=== PATIENT | female | born 1950 ===

== ENCOUNTER 2021-02-02 12:15 | Outpatient (REF) | payer MEDICARE, MEDICAID, SELFPAY ==
--- NOTE | ~2021-02-02 | MM_ITS ---
EXAMINATION: MM DIAGNOSTIC DIGITAL BREAST TOMOSYNTHESIS, BILATERAL US DIAGNOSTIC ULTRASOUND BREAST, LEFT CLINICAL INFORMATION: Painful indurated mass inferior anterior left breast. Patient day 4 on antibiotics. Patient notes clinical improvement in symptoms since starting antibiotics. Family history breast cancer, paternal aunt. The lifetime risk of breast cancer based on the Tyrer-Cuzick Model is 6%. COMPARISON: Mammography: 02/11/2018, 01/17/2017, 10/01/2015 TECHNIQUE: Digital breast tomosynthesis is performed in both the craniocaudal and mediolateral oblique views along with computer-aided detection (CAD). Synthesized 2D images are generated from the tomosynthesis. Additional left MLO and left CC views are provided. Ultrasound left breast is targeted to the retroareolar breast and inferior anterior breast. Grayscale imaging and color Doppler are performed without and with harmonics. FINDINGS: There are scattered areas of fibroglandular density (ACR BI-RADS breast composition Category b). The right breast is unremarkable. There is no developing density, mass, or architectural abnormality. Neither breast shows abnormal calcifications. The axilla are unremarkable. There is chronic bilateral nipple retraction. The left breast has ill-defined increased parenchymal attenuation approximately 1 cm in size central retroareolar region. No skin thickening or coarsening of the Robert's ligaments. Ultrasound left breast demonstrates inferior retroareolar decreased echogenicity residing just beneath the skin measuring 1.6 x 1.3 x 0.7 cm. There is associated mild hyperemia around the area and some internal color flow on color Doppler. No edema tracking in soft tissue planes. No focal duct ectasia. Findings are most likely small abscess and/or granulation tissue from recent infection. Results and management plans are discussed with the patient and also with Dr. Greer at time of patient appointment. Patient confirms decrease in symptoms since starting antibiotics. She is advised to continue with her antibiotics for the full course prescribed and follow-up with Dr. Greer and/or Sinai Nicholson NP on 02/06/2021. Follow-up targeted left breast ultrasound also recommended early next week to reassess findings. MM/MM tomosynthesis diagnostic BI IMPRESSION: 1. Left: Small abscess and/or granulation tissue from recent infection inferior retroareolar left breast 1.6 x 1.3 x 0.7 cm. 2. Right: No mammographic evidence of malignancy. ASSESSMENT: BI-RADS 3: Probably Benign RECOMMENDATION: 1. Patient to continue her course of antibiotics as prescribed and follow-up with Dr. Greer and/or Sinai Nicholson NP on 02/06/2021. 2. Follow up targeted left breast ultrasound in 4-7 days. This patient's information was entered into a reminder system with a target due date for their next mammogram.
--- NOTE | ~2021-02-02 | US_ITS ---
Targeted left breast ultrasound is described in a single combined report along with the diagnostic bilateral digital breast tomosynthesis under accession number [id number].
== END 2021-02-02 12:16 | disposition home or self-care (01) ==
LOC: HO.MAMMO 12:15
PROVIDERS: Visit Provider Nurse Practitioner Family
DX: N63.24 Unspecified lump in the left breast, lower inner quadrant (principal)
CPT/HCPCS: 76641; 77062; 77066

== ENCOUNTER 2021-02-06 13:45 | Outpatient (REF) | payer MEDICARE, MEDICAID, SELFPAY ==
--- NOTE | ~2021-02-06 | US_ITS ---
EXAMINATION: US DIAGNOSTIC ULTRASOUND BREAST, LEFT CLINICAL INFORMATION: Small cysts and/or granulation tissue from recent infection lower retroareolar left breast. Follow-up imaging. Patient seen clinically earlier today by urgent care. Symptoms and clinical findings have improved since prior visit. COMPARISON: Mammography and left breast ultrasound 02/02/2021. TECHNIQUE: Ultrasound left breast is targeted to the lower left retroareolar region. Grayscale imaging and color Doppler are performed without and with harmonics. FINDINGS: The hypoechoic collection or granulation tissue with hyperemia is slightly decreased. Current measurements are 1.3 x 1.0 x 0.6 cm compared with prior measurements 1.6 x 1.3 x 0.7 cm. There is no interval skin thickening or edema tracking in soft tissue planes. No interval new cystic or solid mass or interval focal duct ectasia. Results are discussed with the patient at time of visit. Patient confirms she is feeling clinically improved. She has 2 more antibiotic tablets to finish. She is to follow-up with her primary care, Dr. Jenkins. Results also communicated to Sinai Nicholson NP via secure text. US/US breast LT limited IMPRESSION: Inferior retroareolar findings left breast slightly decreased since prior imaging 02/02/2021. ASSESSMENT: BI-RADS 3: Probably Benign RECOMMENDATION: Patient to complete her prescribed antibiotics and follow up with her PCP as planned. This patient's information was entered into a reminder system with a target due date for their next mammogram.
== END 2021-02-06 13:46 | disposition home or self-care (01) ==
LOC: HO.MAMMO 13:45
PROVIDERS: Visit Provider Nurse Practitioner Family
DX: N61.1 Abscess of the breast and nipple (principal)
CPT/HCPCS: 76642

== ENCOUNTER 2021-03-07 14:44 | Outpatient (REF) | payer MEDICARE, MEDICAID, SELFPAY ==
--- NOTE | ~2021-03-07 | MM_ITS ---
EXAMINATION: BONE DENSITOMETRY CLINICAL INDICATION: Encounter for screening for osteoporosis. COMPARISON: Previous BD dated 11/18/2015 and baseline BD dated 11/18/2007. TECHNIQUE: Using a [employer] DXA System (software version: 13.1) manufactured by [employer], dual-energy x-ray absorptiometry was performed of the lumbar spine and left hip. The images are of good technical quality. Summary results are attached. FINDINGS: AP SPINE L1-L4: Current: BMD 1.261 g/cm2, Z-score 1.3, T-score 0.7, normal, 3.1% decrease from previous, 0.2% decrease from baseline (<5% change is not significant). Prior: BMD 1.301 g/cm2. Baseline: BMD 1.264 g/cm2. LEFT FEMUR, NECK: Current: BMD 0.828 g/cm2, Z-score -0.6, T-score -1.5, osteopenia. Prior: BMD 0.911 g/cm2. Baseline: BMD 0.946 g/cm2. LEFT FEMUR, TOTAL: Current: BMD 1.052 g/cm2, Z-score 1.0, T-score 0.3, normal, 2.3% increase from previous, 7.9% decrease from baseline (<5% change is not significant). Prior: BMD 1.028 g/cm2. Baseline: BMD 1.142 g/cm2. IDENTIFIED RISK FACTORS: Renal, height loss, menopause. HISTORY OF FRACTURE: None listed. MEDICATIONS: Calcium supplements or multivitamin, vitamin D. MM/XR DEXA axial skeleton IMPRESSION: 1. DIAGNOSIS: Osteopenia based on the lowest T-score value of -1.5 in the femoral neck applying World Health Organization criteria. 2. 10-YEAR FRACTURE RISK PREDICTION, FRAX: Major osteoporotic fracture (clinical spine, forearm, hip or shoulder) 4.9%. Hip fracture 0.6%. 3. Treatment Recommendations: NOF guidelines recommend consideration for treatment in postmenopausal women and men age 50 and older presenting with the following: -A hip or vertebral (clinical or morphometric) fracture. -T-score less than or equal to -2.5 at the femoral neck or spine after appropriate evaluation to exclude secondary causes. -Low bone mass at the hip or spine and a 10-year fracture probability by FRAX of greater than or equal to 3% for hip fracture or greater than or equal to 20% for major osteoporotic fracture based on the [place] adapted WHO algorithm. 4. Other Recommendations: All treatment decisions require clinical judgment and consideration of individual patient factors, including patient preferences, comorbidities, previous drug use, risk factors not captured in the FRAX model (e.g. frailty, falls, vitamin D deficiency, increased bone turnover, interval significant decline in bone density) and possible under or overestimation of fracture risk by FRAX. Additional medical evaluation for secondary cause of low bone mineral density may be appropriate. FUTURE SCAN RECOMMENDATION: People with diagnosed cases of osteoporosis or at high risk for fracture should have regular bone mineral density tests. For patients eligible for Medicare, routine testing is allowed once every 2 years. The testing frequency can be increased to one year for patients who have rapidly progressing disease, those who are receiving or discontinuing medical therapy to restore bone mass, or have additional risk factors.
== END 2021-03-07 14:45 | disposition home or self-care (01) ==
LOC: HO.MAMMO 14:44
PROVIDERS: Visit Provider Internal Medicine
DX: Z13.820 Encounter for screening for osteoporosis (principal); M85.80 Other specified disorders of bone density and structure, unspecified site; Z78.0 Asymptomatic menopausal state; Z79.899 Other long term (current) drug therapy
CPT/HCPCS: 77080

== ENCOUNTER → 2021-04-24 14:15 | Outpatient (BNVA) | payer MEDICARE, MEDICAID, SELFPAY | PROVIDERS: PCP Internal Medicine; Visit Provider Nurse Practitioner Family | DX: K59.01 Slow transit constipation (principal); K58.2 Mixed irritable bowel syndrome | CPT/HCPCS: 99202 ==

== ENCOUNTER → 2021-06-14 15:30 | Outpatient (BNVA) | payer MEDICARE, MEDICAID, SELFPAY | PROVIDERS: PCP Internal Medicine; Visit Provider Nurse Practitioner Family | CPT/HCPCS: Q3014 ==

== ENCOUNTER 2021-08-29 11:12 | Day surgery (SDC) | payer MEDICARE, MEDICAID, SELFPAY ==
--- NOTE | 2021-08-28 10:28 | HO.ANESPROP2 ---
Documented by User: Emily Dacosta NP 08/28/21 10:29 HPI - Anesthesia Eval Consult details Narrative: 71yo F for Colonoscopy PMFSH Active Problems Active Problems: All Active Problems (Updated 01/30/21 @ 12:51 by Sinai Nicholson NP) Mastitis (Acute) Breast mass, left (Acute) Vaccination refused by patient (Acute) Dyslipidemia (Acute) Impaired fasting glucose (Acute) Bronchial asthma (Acute) Essential hypertension (Acute) Past Medical History Medical History Bronchial asthma Essential hypertension Impaired fasting glucose Vaccination refused by patient Family History Family History Father Diabetes mellitus Essential hypertension CVA (cerebral vascular accident) Dyslipidemia Mother Dyslipidemia CVA (cerebral vascular accident) Surgical History Surgical History (Updated 06/14/21 @ 15:32 by RYLAN Frank) History of cholecystectomy History of esophagogastroduodenoscopy (EGD) Hx of colonoscopy Social History Social History Alcohol intake: never Patient Tobacco Use Status: Never used Tobacco Use of substances other than those prescribed or required for medical reasons: No Are you DNR?: No Advance Directives: No Advance Directives Information Provided: No Meds Allergies Allergy/AdvReac Type Severity Reaction Status Date / Time shrimp Allergy Mild unknown Verified 06/14/21 15:31 Home Medications Medication Instructions Recorded Confirmed Last Taken Type albuterol sulfate 90 mcg/actuation 2 puff INHALATION Q4-6H PRN 01/16/21 01/16/21 Unknown History aerosol inhaler (ProAir HFA) cholecalciferol (vitamin D3) 50 50 mcg PO DAILY 01/16/21 01/16/21 Unknown History mcg (2,000 unit) capsule duloxetine 20 mg capsule,delayed 20 mg PO BID 01/16/21 01/16/21 Unknown History release (Cymbalta) ibuprofen 400 mg tablet 400 mg PO TID 01/16/21 01/16/21 Unknown History lorazepam 0.5 mg tablet 0.5 mg PO BID PRN 01/16/21 01/16/21 Unknown History quetiapine 25 mg tablet 25 mg PO DAILY 01/16/21 01/16/21 Unknown History amlodipine 2.5 mg tablet 2.5 mg PO DAILY 01/18/21 01/18/21 08/29/21 History bupropion HCl 300 mg 24 hr tablet, 300 mg PO QAM 06/14/21 Unknown History extended release duloxetine 60 mg capsule,delayed 60 mg PO QAM 06/14/21 Unknown History release Exam Exam Date and Time: August 28, 2021 1028 Assessment and Plan Assessment Anesthesia Assessment: Chart Reviewed Documented by User: Jazmyn Spence MD 08/29/21 12:58 PMFSH Past Medical History Medical History Bronchial asthma Essential hypertension Impaired fasting glucose Vaccination refused by patient Functional capacity: independent ambulation Patient : No Family History Family History Father Diabetes mellitus Essential hypertension CVA (cerebral vascular accident) Dyslipidemia Mother Dyslipidemia CVA (cerebral vascular accident) Family history of problems with anesthesia: No Surgical History Surgical History (Updated 06/14/21 @ 15:32 by RYLAN Frank) History of cholecystectomy History of esophagogastroduodenoscopy (EGD) Hx of colonoscopy History of Problems with Anesthesia: No Social History Social History Alcohol intake: never Patient Tobacco Use Status: Never used Tobacco Use of substances other than those prescribed or required for medical reasons: No Are you DNR?: No Advance Directives: No Advance Directives Information Provided: No Meds Allergies Allergy/AdvReac Type Severity Reaction Status Date / Time shrimp Allergy Mild unknown Verified 06/14/21 15:31 Home Medications Medication Instructions Recorded Confirmed Last Taken Type albuterol sulfate 90 mcg/actuation 2 puff INHALATION Q4-6H PRN 01/16/21 01/16/21 Unknown History aerosol inhaler (ProAir HFA) cholecalciferol (vitamin D3) 50 50 mcg PO DAILY 01/16/21 01/16/21 Unknown History mcg (2,000 unit) capsule duloxetine 20 mg capsule,delayed 20 mg PO BID 01/16/21 01/16/21 Unknown History release (Cymbalta) ibuprofen 400 mg tablet 400 mg PO TID 01/16/21 01/16/21 Unknown History lorazepam 0.5 mg tablet 0.5 mg PO BID PRN 01/16/21 01/16/21 Unknown History quetiapine 25 mg tablet 25 mg PO DAILY 01/16/21 01/16/21 Unknown History amlodipine 2.5 mg tablet 2.5 mg PO DAILY 01/18/21 01/18/21 08/29/21 History bupropion HCl 300 mg 24 hr tablet, 300 mg PO QAM 06/14/21 Unknown History extended release duloxetine 60 mg capsule,delayed 60 mg PO QAM 06/14/21 Unknown History release Exam Airway Mallampati Class: III TM Dist: >3cm Neck ROM: Full Heart: RRR Lungs: CTA Assessment and Plan Final Anesthetic Review Family History of Problems with Anesthesia: No History of Problems with Anesthesia: No ASA Class: III Final Preanesthetic Review: No Changes in Pt Med Stat, Consent Obtained/Reviewed and Anes Risks/Benef Reviewed Patient Risk: Intermediate Procedure Risk: Low Anesthetic Plan Anesthetic Plan: MAC: Disposition: Standard PACU
[2021-08-29 11:46] VITALS: BP 192/93; PULSE 77; RESP 20; TEMP 36.3; O2SAT 97; BMI 39.1
[2021-08-29] MEDS: Lactated Ringers 1,000 ML 100 ML IVCONT (12:07)
--- NOTE | 2021-08-29 12:30 | MHC.SHP ---
Pre-Procedural Eval Section A Date of Service: 08/29/21 The patient is an INPATIENT: No The History & Physical has been completed within 30 days and I have reviewed it.: No Section B Chief Complaint: Irritable bowel syndrome without diarrhea Details of Present Illness: Colon cancer screening, constipation Relevant Family History (Specify if Yes): No Relevant Social History: None Present Medications: see Short Stay Collaborative assessment Medical History: Significant History (Bronchial asthma Essential hypertension Impaired fasting glucose Vaccination refused by patient) History of Previous Operations: Relevant previous surgery/procedure and date(s) (History of cholecystectomy History of esophagogastroduodenoscopy (EGD) Hx of colonoscopy) Allergies: Allergies Allergy/AdvReac Type Severity Reaction Status Date / Time shrimp Allergy Mild unknown Verified 06/14/21 15:31 Review of Systems Sugical H&P ROS: Negative: Constitution, Cardiovascular and Respiratory and Yes, Specify: Gastrointestinal (constipation) Exam Surgical H&P Exam: Normal: Heart, Normal: Lungs, Normal: Extremities and Normal: Abdomen Plan Diagnosis/Plan: Unchanged I have reviewed the history and physical and performed a pertinent physical examination on my patient. No changes have occurred unless specified.
--- NOTE | 2021-08-29 12:31 | P.OP_ITS ---
Operative Note Operative Note Date of Service: 08/29/21 Narrative: Pre-op diagnosis:?colon cancer screening, constipation, IBS Post-op diagnosis:?other (Diverticulosis, hemorrhoids) Procedure:? COLONOSCOPY TILL CECUM Consent: Indications for the procedure and potential complications of bleeding, perforation, reaction to medications and missed diagnosis were discussed with the patient and informed consent was obtained. Instrument: Olympus PCF H 190 L variable stiffness pediatric colonoscope Monitoring: Vital signs and clinical assessment, intermittent blood pressure monitoring, continuous EKG monitoring, Pulse oximetry and Carbon Dioxide monitoring were done throughout the procedure. Colon withdrawl time was 15 minutes. Procedure: The patient was placed in the left lateral decubitis position and pre-procedure medications were administered. After a digital rectal examination of the ano-rectum, the video colonoscope was inserted into the rectum and advanced through the colon to the cecum. The colonoscope was slowly withdrawn in a retrograde panoramic fashion and the colon mucosa was carefully examined including a retroflexed view of the rectum. Findings and interventions are described below. Procedure Difficulty:? Colon was long and tortuous and there was some loop formation.? There was narrowing due to severe diverticulosis at 30 cm which was navigated with some difficulty Findings: Terminal Ileum: Not evaluated Cecum:? Normal Ascending Colon:? Scattered diverticulosis Transverse Colon:? Scattered diverticulosis Descending Colon:? Moderate diverticulosis Sigmoid Colon:? Severe diverticulosis with narrowing and tortuosity. Rectum:? Normal Ano-rectum:? Moderate internal hemorrhoids Colon preparation:? Good after some irrigation Impression and Post Procedure Diagnosis: Colonoscopy Findings: No polyps were detected Moderate to severe diverticulosis seen in the entire colon Moderate hemorrhoids on retroflexed exam. Plan: Patient has an appointment on 09/12/21 in the [facility] with Cecilia Yang FNP-BC. Repeat Colonoscopy in 10 yrs. Above findings were reviewed with the patient and diverticulosis handouts was given in the discharge area Surgeon:?Neftali Mckeon MD Anesthesia:?MAC (Dr Joseph) Was an Tufting Machine Operator Single Needle used for this Procedure?:?No Tufting Machine Operator Single Needle:?Marina Xiao Estimated blood loss (mL):?0 Pathology:?none sent Condition:?stable Disposition:?PACU
[2021-08-29 13:58] VITALS: BP 128/74; PULSE 80; RESP 16; TEMP 36.6; O2SAT 95
[2021-08-29 14:13] VITALS: BP 145/78; PULSE 70; RESP 16; TEMP 36.6; O2SAT 96
--- NOTE | 2021-08-29 14:16 | HO.POSTANES ---
Post Anesthesia Evaluation Post Anesthesia Evaluation Vital Signs: Vital Signs Temp Pulse Resp BP Pulse Ox 08/29/21 14:13 97.9 F 70 16 145/78 H 96 08/29/21 13:58 97.9 F 80 16 128/74 95 08/29/21 11:46 97.4 F 77 20 192/93 H 97 Anesthesia: Monitored Mental Status: Awake Pain Control: Satisfactory Nausea/Vomiting: None Hydration: Adequate Anesthesia-Related Issues: No Anes. Related Issues
== END 2021-08-29 14:36 | disposition home or self-care (01) ==
PROVIDERS: PCP Internal Medicine; Visit Provider Internal Medicine Gastroenterology
PROC: 0DJD8ZZ Inspection of Lower Intestinal Tract, Via Natural or Artificial Opening Endoscopic (ICD-10-PCS; CPT 45378; principal; 2021-08-29 12:30)
DX: Z12.11 Encounter for screening for malignant neoplasm of colon (principal); K58.1 Irritable bowel syndrome with constipation; K57.30 Diverticulosis of large intestine without perforation or abscess without bleeding; K64.8 Other hemorrhoids; K21.9 Gastro-esophageal reflux disease without esophagitis; I10 Essential (primary) hypertension; E78.5 Hyperlipidemia, unspecified; R73.01 Impaired fasting glucose; J45.909 Unspecified asthma, uncomplicated; Z79.51 Long term (current) use of inhaled steroids; Z79.899 Other long term (current) drug therapy; Z90.49 Acquired absence of other specified parts of digestive tract
CPT/HCPCS: G0121

== ENCOUNTER 2022-03-29 13:51 | Outpatient (REF) | payer MEDICARE, MEDICAID, SELFPAY ==
[2022-03-29 16:39] LABS: MANUAL DIFF FLAG NO
[2022-03-29 16:43] LABS: Basophils Absolute Auto 0.1 X10*3/uL (0.0-0.2); Basophils Percent Auto 0.5 % (0-2); Eosinophils Absolute Auto 0.3 X10*3/uL (0.0-0.4); Eosinophils Percent Auto 2.3 % (0-4); Hemoglobin 14.4 g/dl (12.0-16.0); Imm Gran Abs Auto 0.07 X10*3/uL (0.00-0.03); Imm Gran Pct Auto 0.7 % (0.0-0.4); Lymphocytes Absolute Auto 2.7 X10*3/uL (1.2-4.9); Lymphocytes Percent Auto 24.6 % (20-40); Mean Corpuscular HGB Conc 32.7 g/dl (31.0-35.0); Mean Corpuscular Hemoglobin 28.1 pg (27.0-33.0); Mean Corpuscular Volume 85.9 fL (80.0-98.0); Mean Platelet Volume 11.6 fL (9.4-12.3); Monocytes Absolute Auto 1.1 X10*3/uL (0.1-1.2); Monocytes Percent Auto 10.6 % (2-11); Neutrophils Absolute Auto 6.6 x10*3/uL (2.0-8.3); Neutrophils Percent Auto 61.3 % (45-73); Platelet Count 317 X10*3/uL (160-400); Red Blood Count 5.12 X10*6/uL (4.20-5.50); Red Cell Distribution Width 13.5 % (11.0-16.0); White Blood Count 10.8 X10*3/uL (4.8-10.8)
[2022-03-29 16:57] LABS: Alanine Aminotransferase 22 U/L (0-31); Anion Gap 13 (12-20); Aspartate Amino Transferase 21 U/L (5-31); Blood Urea Nitrogen 13 mg/dL (9-16); Calcium 9.3 mg/dL (8.4-10.2); Carbon Dioxide 24 mmol/L (22-29); Chloride 108 mmol/L (96-108); Cholesterol 137 mg/dL; Estimated Glomerular Filt Rate > 60; Glucose Fasting 121 mg/dL (60-99); HDL Cholesterol 43 mg/dL; LDL Cholesterol Calculated 73 mg/dl; Potassium 4.6 mmol/L (3.3-5.1); Sodium 140 mmol/L (135-145); Triglycerides 107 mg/dL
[2022-03-29 17:20] LABS: Vitamin D 25-OH Total 42.3 ng/mL (>30)
== END 2022-03-29 13:52 | disposition home or self-care (01) ==
LOC: HO.HMGCLDS 13:51
PROVIDERS: Visit Provider Internal Medicine
DX: I10 Essential (primary) hypertension (principal); E78.5 Hyperlipidemia, unspecified; R73.01 Impaired fasting glucose; N95.9 Unspecified menopausal and perimenopausal disorder
CPT/HCPCS: 36415; 80048; 80061; 82306; 84450; 84460; 85025

== ENCOUNTER 2022-05-01 12:25 | Outpatient (REF) | payer MEDICARE, MEDICAID, SELFPAY ==
--- NOTE | ~2022-05-01 | XR_ITS ---
EXAMINATION: XR ANKLE, RIGHT CLINICAL INFORMATION: S93.401A - Sprain of unspecified ligament of right ankle, initial encounter COMPARISON: None TECHNIQUE: AP, lateral, and mortise views of the right ankle. FINDINGS: The malleoli are intact and the ankle mortise is symmetric. No ankle joint narrowing. No visible capsular effusion. Talar dome shows no osteochondral lesion. The retrocalcaneal recess is preserved. The subtalar joint appears normal. There is small plantar and tiny posterior calcaneal spurs. XR/XR ankle RT min 3V IMPRESSION: -No fracture or dislocation. -Small plantar and posterior calcaneal spurs.
== END 2022-05-01 12:26 | disposition home or self-care (01) ==
LOC: HO.HMGCX 12:25
PROVIDERS: PCP Internal Medicine; Visit Provider Internal Medicine
DX: S93.401A Sprain of unspecified ligament of right ankle, initial encounter (principal); X58.XXXA Exposure to other specified factors, initial encounter; Y93.9 Activity, unspecified; Y92.9 Unspecified place or not applicable; Y99.8 Other external cause status
CPT/HCPCS: 73610

== ENCOUNTER 2022-10-11 14:17 | Outpatient (REF) | payer MEDICARE, MEDICAID, SELFPAY ==
--- NOTE | ~2022-10-11 | MM_ITS ---
EXAMINATION: MM DIAGNOSTIC DIGITAL BREAST TOMOSYNTHESIS, BILATERAL TARGETED LEFT BREAST ULTRASOUND CLINICAL INFORMATION: Left breast lump retroareolar region. The lifetime risk of breast cancer based on the Tyrer-Cuzick Model is 7.0%. COMPARISON: Mammography: 02/06/2021 and studies dating back to 11/15/2011. TECHNIQUE: Digital breast tomosynthesis is performed in both the craniocaudal and mediolateral oblique views along with computer-aided detection (CAD). Synthesized 2D images are generated from the tomosynthesis. Targeted left breast ultrasound. FINDINGS: There are scattered areas of fibroglandular density (ACR BI-RADS breast composition Category b). There is a stable parenchymal pattern of the right breast with no new abnormal dominant mass or suspicious grouping of microcalcifications identified. Within the left breast there appears to be some nipple inversion present. In the retroareolar region there is an ill-defined density measuring approximately 1.2 x 0.9 cm in size. Targeted left breast ultrasound to the retroareolar region demonstrated a 1.3 x 0.9 x 0.9 cm heterogeneous and hypoechoic lesion with some distal sound enhancement. There is internal vascularity present. The margins are somewhat ill-defined in regions. Ultrasound-guided core biopsy is recommended. Results are discussed with the patient at time of visit. MM/MM tomosynthesis diagnostic BI IMPRESSION: Left breast retroareolar lesion for which ultrasound-guided core biopsy is recommended. ASSESSMENT: BI-RADS 4: Suspicious RECOMMENDATION: Ultrasound-guided core biopsy. The above recommendation was called to Christina at the referring provider's office.
== END 2022-10-11 14:18 | disposition home or self-care (01) ==
LOC: HO.MAMMO 14:17
PROVIDERS: Visit Provider Internal Medicine
DX: N63.25 Unspecified lump in the left breast, overlapping quadrants (principal)
CPT/HCPCS: 76642; 77062; 77066

== ENCOUNTER 2022-10-16 09:46 | Outpatient (REF) | payer OTHER, SELFPAY ==
--- NOTE | ~2022-10-16 | US_ITS ---
EXAMINATION: ULTRASOUND GUIDED CORE BIOPSY BREAST, LEFT POST PROCEDURE DIGITAL BREAST TOMOSYNTHESIS, LEFT CLINICAL INFORMATION: Hypoechoic nodule with internal color subareolar left breast for tissue sampling. COMPARISON: Mammography 10/11/2022, 02/02/2021, 02/11/2018; ultrasound left breast 10/11/2022, 02/06/2021, 02/02/2021. FINDINGS: Proper informed consent is obtained from the patient after discussion of the procedure, potential risks and complications, and alternatives. Patient was given an opportunity for questions. The patient appeared to understand. The patient consented to the procedure and signed the consent form. Hospital provided clinical account liaison assisted for the consent and throughout the procedure. GUIDANCE: Ultrasound-guided; aseptic technique. LESION: Subareolar hypoechoic nodule with internal color flow approximately 1.2 cm. Differential considerations include papilloma, chronic postinflammatory granulation tissue, other. APPROACH: Medial lateral. ANESTHESIA: 20 mL carbonated 1% lidocaine. DERMATOTOMY: Single skin jian dermatotomy performed. NEEDLE: 14-gauge Achieve core biopsy device with 13.5-gauge co-axial guide needle. CORES: 4. CLIP: HydroMARK; shape: open coil. POST PROCEDURE DIGITAL BREAST TOMOSYNTHESIS, LEFT: The post biopsy mammogram is performed in separate room using separate digital breast tomography equipment from the biopsy procedure. CC and ML views are obtained. There are scattered areas of fibroglandular density (breast composition category: b). The clip marker is in expected position. No gross hematoma. The patient tolerated the procedure well. No immediate complications. Home instructions reviewed with the patient. Final pathology results are pending. US/US breast ndl core biopsy LT IMPRESSION: 1. Status post ultrasound-guided core biopsy left breast. 2. Clip placed: HydroMARK; shape: open coil. 3. Pathology pending. An addendum report will be issued.
[2022-10-16] MEDS: Sodium Bicarbonate 8.4% 50 MEQ/50 ML VIAL SUBCUT (11:23)
[2022-10-16] MEDS: Lidocaine HCl 1 % 20 ML VIAL SUBCUT (11:24)
== END 2022-10-16 09:47 | disposition home or self-care (01) ==
LOC: HO.MAMMO 09:46
PROVIDERS: PCP Internal Medicine; Visit Provider Surgery
DX: N63.42 Unspecified lump in left breast, subareolar (principal); R93.5 Abnormal findings on diagnostic imaging of other abdominal regions, including retroperitoneum
CPT/HCPCS: 19083; 77061; 77065; 88305; 88341; 88342; 88360; 99202; A4648

== ENCOUNTER → 2022-10-23 13:29 | Outpatient (BNVA) | payer OTHER, SELFPAY | PROVIDERS: PCP Internal Medicine; Referring Provider Internal Medicine; Visit Provider Surgery | DX: C50.912 Malignant neoplasm of unspecified site of left female breast (principal); Z17.0 Estrogen receptor positive status [ER+]; R93.5 Abnormal findings on diagnostic imaging of other abdominal regions, including retroperitoneum | CPT/HCPCS: 99212 ==

== ENCOUNTER 2022-11-01 09:48 | Outpatient (REF) | payer OTHER, SELFPAY ==
--- NOTE | ~2022-11-01 | MM_ITS ---
EXAMINATION: MM DIAGNOSTIC DIGITAL MAMMOGRAPHY, LEFT CLINICAL INFORMATION: RFID placement. COMPARISON: Mammography: Ultrasound of same day as well as mammography and ultrasound of 10/16/2022 and 03/11/2022. TECHNIQUE: Digital mammography is performed in craniocaudal and mediolateral views along with tomosynthesis. FINDINGS: There are scattered areas of fibroglandular density (ACR BI-RADS breast composition Category b). The RFID clip is seen to lie approximately 6 mm anterior to and 6 mm superior to the marking clip from previous biopsy in the anterior left breast. MM/MM diagnostic mammo unilat LT IMPRESSION: RFID marker in place.
--- NOTE | ~2022-11-01 | US_ITS ---
EXAMINATION: MM MAMMOGRAM GUIDED RFID LOCALIZATION BREAST, LEFT CLINICAL INFORMATION: Left breast retroareolar carcinoma in situ. COMPARISON: October 16, 2022 and October 11, 2022 TECHNIQUE NEEDLE LOC: Proper informed consent is obtained from the patient after discussion of the procedure, potential risks and complications, and alternatives including declining the procedure today. Patient was given an opportunity for questions. The patient appeared to understand. The patient consented to the procedure and signed the consent form. GUIDANCE: Digital mammography. APPROACH: Lateral Medial. TARGET: Hypoechoic lesion and clip. ANESTHESIA: carbonated lidocaine 1%: 6 mL. LOCALIZATION SYSTEM: [email or web address] LOCallizer Wire-Free Guidance System with 12g needle applicator. RADIOFREQUENCY TAG: ID # [id number] DERMATOTOMY: Single skin-jian dermatotomy performed. RF Tag ID confirmed with LOCalizer Guidance System prior to placement. The skin is prepped and local anesthesia administered. The needle is positioned and RFID tag deployed. The needle was turned so it was facing the clip and was approximately 1 mm from the clip at time of deployment. Final images demonstrate the LOCalizer RF tag to reside 6 mm anterior and 6 mm superior to the marking clip. The patient tolerated the procedure well and had no immediate complications. Dressing placed and home instructions reviewed. US/US breast needle loc LT IMPRESSION: -Status post left breast RFID localization.
[2022-11-01] MEDS: Lidocaine HCl 1 % 20 ML VIAL 9 ML SUBCUT (10:55)
== END 2022-11-01 09:49 | disposition home or self-care (01) ==
LOC: HO.MAMMO 09:48
PROVIDERS: PCP Internal Medicine; Visit Provider Surgery
DX: C50.812 Malignant neoplasm of overlapping sites of left female breast (principal); Z17.0 Estrogen receptor positive status [ER+]
CPT/HCPCS: 19285; 77062; 77065; C1819

== ENCOUNTER 2022-11-05 11:19 | Day surgery (SDC) | payer OTHER, SELFPAY ==
[2022-10-31 15:33] VITALS: BMI 38.5
[2022-11-05] VITALS (14 sets, daily range): BP systolic 116–166; BP diastolic 66–88; PULSE 65–78; RESP 12–20; TEMP 36.1–36.7; O2SAT 94–98
--- NOTE | ~2022-11-05 | MM_ITS ---
EXAMINATION: MM SPECIMEN X-RAY BREAST, LEFT BREAST CLINICAL INDICATION: Carcinoma in situ. Open surgical biopsy. COMPARISON: Mammography 10/11/2022, 10/16/2022, 11/01/2022; left breast ultrasound-guided core biopsy 10/16/2022, left breast ultrasound-guided localization with radiofrequency seed 11/01/2022. TECHNIQUE: Single radiograph of the excised breast tissue is performed using digital mammography. FINDINGS: The specimen shows radiofrequency localizer seed in the specimen. The open coil biopsy clip marker is also present, close to the radiofrequency seed. Results were called to Dr. Quinn Matias in the operating room at the time of imaging.
--- NOTE | 2022-11-05 12:04 | HO.ANESPROP2 ---
[facility] Active Problems Active Problems: All Active Problems (Updated 10/31/22 @ 15:32 by Leda Vanegas RN) Dyslipidemia (Acute) Sprain of right ankle (Acute) Cough (Acute) Abnormal US (ultrasound) of abdomen (Acute) Carcinoma of left breast in female, estrogen receptor positive (Acute) Breast mass, left (Acute) Impaired fasting glucose (Acute) Bronchial asthma (Acute) Essential hypertension (Acute) Past Medical History Medical History (Updated 10/31/22 @ 15:32 by Leda Vanegas RN) Breast mass, left Bronchial asthma Elevated cholesterol Essential hypertension GERD (gastroesophageal reflux disease) Impaired fasting glucose Vaccination refused by patient Family History Family History Father Diabetes mellitus Essential hypertension CVA (cerebral vascular accident) Dyslipidemia Mother Dyslipidemia CVA (cerebral vascular accident) Mother Mental health disorder Brother Mental health disorder Paternal Aunt Breast cancer Ovarian cancer Maternal Aunt Breast cancer Ovarian cancer Family history of problems with anesthesia: No Surgical History Surgical History (Updated 10/31/22 @ 15:15 by Leda Vanegas RN) History of cholecystectomy History of esophagogastroduodenoscopy (EGD) Hx of colonoscopy History of Problems with Anesthesia: No Social History Social History Housing: Apartment Are you a primary career development counselor to a significant other at home: No Do you presently have visiting nurse or other home services: No Alcohol intake: never Patient Tobacco Use Status: Never used Tobacco e-Cigarette/Vaping Use: Never Used Use of substances other than those prescribed or required for medical reasons: No Have you been hit, kicked, punched, or otherwise hurt by someone within the past year? If so, by whom?: No Are you DNR?: No Advance Directives: No (daughter is primary contact-unsure if has official HCP form) Advance Directives Information Provided: Yes (brochure mailed) Advance Directives on File: No Recently lost weight without trying: No Eating poorly because of decreased appetite: No Nutrition Risks: No Nutritional Risk Poor oral hygiene: No Current occupational status: disabled Cognitive needs: No Hearing needs: Yes Vision needs: Yes Meds Allergies Allergy/AdvReac Type Severity Reaction Status Date / Time shrimp Allergy Mild unknown Verified 10/23/22 13:55 Active Medications: Current Medications Cefazolin Sodium/Dextrose (Ancef) 2 gm in 50 mls @ 100 mls/hr IV PREOP ONE Stop: 11/05/22 12:10 Lactated Ringer's (Lr) 1,000 mls @ 100 mls/hr IVCONT .Q10H ENRIQUE Home Medications Medication Instructions Recorded Confirmed Last Taken Type albuterol sulfate 90 mcg/actuation 2 puff inhalation Q4-6H PRN 01/16/21 10/31/22 Unknown History aerosol inhaler (ProAir HFA) Wheezing cholecalciferol (vitamin D3) 50 50 mcg PO DAILY 01/16/21 10/31/22 Unknown History mcg (2,000 unit) capsule duloxetine 20 mg capsule,delayed 20 mg PO BID 01/16/21 10/31/22 Unknown History release (Cymbalta) ibuprofen 400 mg tablet 400 mg PO TID 01/16/21 10/31/22 Unknown History lorazepam 0.5 mg tablet 0.5 mg PO BID PRN Anxiety 01/16/21 10/31/22 Unknown History quetiapine 25 mg tablet 25 mg PO DAILY 01/16/21 10/31/22 Unknown History amlodipine 2.5 mg tablet 2.5 mg PO DAILY 01/18/21 10/31/22 08/29/21 History bupropion HCl 300 mg 24 hr tablet, 300 mg PO QAM 06/14/21 10/31/22 Unknown History extended release duloxetine 60 mg capsule,delayed 60 mg PO QAM 06/14/21 10/31/22 Unknown History release Exam Exam Date and Time: November 05, 2022 120 Height,Weight and Vital Signs: Height 5 ft 2 in Weight 95.708 kg Last Vital Signs Temp 98.0 F 11/05/22 11:51 Pulse 68 11/05/22 11:51 Resp 20 11/05/22 11:51 BP 166/88 H 11/05/22 11:51 Pulse Ox 97 11/05/22 11:51 O2 Del Method 11/05/22 11:51 Airway Mallampati Class: II (Missing multiple teeth) TM Dist: >3cm Neck ROM: Full Heart: rrr Lungs: cta bl Assessment and Plan Assessment Anesthesia Assessment: Anesthesia Plan Discussed and Chart Reviewed Final Anesthetic Review Family History of Problems with Anesthesia: No History of Problems with Anesthesia: No NPO: Yes ASA Class: III Final Preanesthetic Review: No Changes in Pt Med Stat, Meds/Allgs Chart Reviewed and Consent Obtained/Reviewed Patient Risk: Intermediate Procedure Risk: Intermediate Anesthetic Plan Anesthetic Plan: GA Disposition: Standard PACU
[2022-11-05] MEDS: Lactated Ringers 1,000 ML 100 ML IVCONT (12:06)
[2022-11-05] MEDS: oxyCODONE HCl Immed Release 5 MG TABLET PO (14:30)
[2022-11-05] MEDS: fentaNYL citrate/PF 100 MCG/2 ML VIAL 50 MCG IVPUSH ×3 (14:30→14:55)
[2022-11-05] MEDS: Acetaminophen 1,000 MG/100 ML PIGGYBACK 400 MG IV (15:42)
--- NOTE | 2022-11-06 07:36 | W.PM.OPN ---
Operative Note Operative Note Date of Service: 11/05/22 Narrative: Preoperative diagnosis: Carcinoma in situ left breast, at least Postoperative diagnosis: Same Procedure: Left breast lumpectomy with LOCalizer, left axillary sentinel node biopsy Surgeon: Quinn Matias MD Damage Inside Adjuster: Corrina Ann PA-C Anesthesia: General LMA Indications for procedure: 72-year-old female patient presenting with a density in the left breast noted on mammogram and confirmed on ultrasound. Subsequent ultrasound guided core biopsy revealed left breast carcinoma in-situ, at least. She presents today for lumpectomy with LOCalizer followed by sentinel node biopsy using blue dye. Operative findings: Specimen x-ray confirms LOCalizer and marking clip within the specimen. Blue dyed not identified within axilla however several palpable, enlarged nodes were identified in the axilla and excised. Specimen: 1. lumpectomy left breast, 2. Axillary node 1., 3. Axillary node 2. Estimated blood loss: 5 mL Complications: None Procedure details: Patient was brought to the OR placed in a supine position. After administering general anesthesia patient's left breast was prepped with ChloraPrep and draped in a sterile fashion. A surgical time-out was called the consent confirmed. Patient received preoperative antibiotics and Venodyne boots were in place. LOCalizer marker was previously placed as an outpatient in the [facility]ology[facility]. Prior to the start of the procedure, periareolar methylene blue was injected in the dermis circumferentially her total of 8 mL. The patient was scanned with the LOCalizer probe in the area of activity identified and marked with a skin scribe. An area at the nipple-areolar complex was identified as the closest to the lesion. Local anesthesia consisting of 0.5% Sensorcaine with epinephrine was infiltrated from between the 4 and 02:00 o'clock location at the upper portion of the nipple-areolar complex. Curvilinear incision was then made with a scalpel carried out through subcutaneous tissue. Superior inferior skin flaps were then created. Using the LOCalizer as a guide core of tissue surrounding the area of are effective it he was excised extending below the nipple into the upper and lower inner quadrants. A palpable nodule was noted just below the nipple in shaved off the nipple skin. Lesion was completely excised and marked with a long suture on the lateral margin, short suture on the superior margin, looped suture on the posterior margin and a single long suture on the region just below the nipple. Specimen was sent for radiology which confirmed the marking clip within the specimen. Attention was then directed to the left axilla. Local anesthesia was then infiltrated in the skin at the lower portion of the hairline. Curvilinear incision was then made in the lower axilla. Dissection was continued down through subcutaneous tissue and up to the clavipectoral fascia. This was then incised with electrocautery. The axillary contents were then explored. No blue dye could be identified within the axilla. The axilla was then palpated carefully. Several level 1 enlarged lymph nodes were identified. These were grasped with the Allis clamp and excised using electrocautery. These were labeled as axillary lymph nodes and sent to pathology further examination. No further palpable lymph nodes were identified and no blue dye could be identified within the axillary compartment. Axillary wounds were then irrigated with saline solution and suctioned dry. The clavipectoral fascia was then closed using interrupted 3-0 Polysorb sutures. Subcutaneous tissue and dermis were then reapproximated using interrupted 3-0 Polysorb sutures. Skin was closed using a running subcuticular 4-0 Polysorb suture. In a similar fashion the breast tissue was irrigated with saline solution and suctioned dry. Deep breast tissue was reapproximated using interrupted 3-0 Polysorb sutures. Dermis was reapproximated using interrupted 3-0 Polysorb sutures. Skin was then closed using a running subcuticular 4-0 Polysorb suture. Steri-Strips, 2 x 2 gauze and Tegaderm were then applied to both incisions. The patient tolerated the procedure well. Sponge, instrument, needle counts reported as correct. Patient was transferred to PACU in stable condition. Breast Albert Lea Node Biopsy Substrate(s) used for sentinel node biopsy in the non-neoadjuvant setting: Dye Substrate(s) used for sentinel node biopsy in the neoadjuvant setting: N/A All colored nodes or non-colored nodes present at the end of a dye filled lymphatic channel were removed, if dye was used as the substrate for localization: N/A (no blue dye identified.) All significantly radioactive nodes were removed, if radionuclide was used as the substrate for localization: N/A All palpably suspicious nodes were removed, if present: Yes If clips were placed in pathology-involved nodes, those nodes were identified and removed: N/A General Surg. - Synoptic Notes Breast Albert Lea Node Biopsy Substrate(s) used for sentinel node biopsy in the non-neoadjuvant setting: Dye Substrate(s) used for sentinel node biopsy in the neoadjuvant setting: N/A All colored nodes or non-colored nodes present at the end of a dye filled lymphatic channel were removed, if dye was used as the substrate for localization: N/A (no blue dye identified.) All significantly radioactive nodes were removed, if radionuclide was used as the substrate for localization: N/A All palpably suspicious nodes were removed, if present: Yes If clips were placed in pathology-involved nodes, those nodes were identified and removed: N/A
== END 2022-11-05 16:15 | disposition home or self-care (01) ==
PROVIDERS: PCP Internal Medicine; Visit Provider Surgery
PROC: (CPT 19301; principal; 2022-11-05 13:50)
PROC: (CPT 19301; 2022-11-05 13:50)
DX: C50.912 Malignant neoplasm of unspecified site of left female breast (principal); Z17.0 Estrogen receptor positive status [ER+]; I10 Essential (primary) hypertension; J45.909 Unspecified asthma, uncomplicated; R73.01 Impaired fasting glucose; Z79.51 Long term (current) use of inhaled steroids; Z79.899 Other long term (current) drug therapy; Z79.1 Long term (current) use of non-steroidal anti-inflammatories (NSAID); Z90.49 Acquired absence of other specified parts of digestive tract
CPT/HCPCS: 19301; 38525; 88305; 88307; 88329; 88341; 88342; J0131; J0690; J1100; J2250; J2405; J3010; Q9968

== ENCOUNTER → 2022-11-13 13:58 | Outpatient (BNVA) | payer OTHER, SELFPAY | PROVIDERS: PCP Internal Medicine; Visit Provider Surgery | DX: Z13.89 Encounter for screening for other disorder (principal) ==

== ENCOUNTER 2022-11-15 10:43 | Outpatient (REF) | payer OTHER, SELFPAY ==
[2022-11-15 13:59] LABS: MANUAL DIFF FLAG NO
[2022-11-15 14:25] LABS: Basophils Absolute Auto 0.1 X10*3/uL (0.0-0.2); Basophils Percent Auto 0.8 % (0-2); Eosinophils Absolute Auto 0.2 X10*3/uL (0.0-0.4); Eosinophils Percent Auto 2.8 % (0-4); Hematocrit 42.9 % (37.0-47.0); Hemoglobin 14.1 g/dl (12.0-16.0); Imm Gran Abs Auto 0.04 X10*3/uL (0.00-0.03); Imm Gran Pct Auto 0.5 % (0.0-0.4); Lymphocytes Absolute Auto 2.4 X10*3/uL (1.2-4.9); Mean Corpuscular HGB Conc 32.9 g/dl (31.0-35.0); Mean Corpuscular Hemoglobin 28.3 pg (27.0-33.0); Mean Platelet Volume 12.1 fL (9.4-12.3); Monocytes Absolute Auto 0.8 X10*3/uL (0.1-1.2); Monocytes Percent Auto 10.4 % (2-11); Neutrophils Absolute Auto 4.2 x10*3/uL (2.0-8.3); Neutrophils Percent Auto 54.5 % (45-73); Platelet Count 264 X10*3/uL (160-400); Red Blood Count 4.99 X10*6/uL (4.20-5.50); Red Cell Distribution Width 13.7 % (11.0-16.0); White Blood Count 7.6 X10*3/uL (4.8-10.8)
[2022-11-15 14:55] LABS: Alanine Aminotransferase 26 U/L (0-31); Anion Gap 13 (12-20); Aspartate Amino Transferase 25 U/L (5-31); Blood Urea Nitrogen 13 mg/dL (9-16); Calcium 9.3 mg/dL (8.4-10.2); Carbon Dioxide 25 mmol/L (22-29); Chloride 107 mmol/L (96-108); Cholesterol 147 mg/dL; Estimated Glomerular Filt Rate > 60; Glucose Fasting 149 mg/dL (60-99); HDL Cholesterol 41 mg/dL; LDL Cholesterol Calculated 85 mg/dl; Potassium 4.2 mmol/L (3.3-5.1); Sodium 141 mmol/L (135-145); Triglycerides 106 mg/dL
[2022-11-15 15:09] LABS: Vitamin D 25-OH Total 34.3 ng/mL (>30)
== END 2022-11-15 10:44 | disposition home or self-care (01) ==
LOC: HO.HMGCLDS 10:43
PROVIDERS: PCP Internal Medicine; Visit Provider Internal Medicine
DX: R73.01 Impaired fasting glucose (principal); E78.5 Hyperlipidemia, unspecified; I10 Essential (primary) hypertension; M85.852 Other specified disorders of bone density and structure, left thigh; Z79.51 Long term (current) use of inhaled steroids; Z78.0 Asymptomatic menopausal state
CPT/HCPCS: 36415; 80048; 80061; 82306; 84450; 84460; 85025

== ENCOUNTER → 2022-11-20 09:52 | Outpatient (BNVA) | payer OTHER, SELFPAY | PROVIDERS: PCP Internal Medicine; Visit Provider Surgery | DX: Z13.89 Encounter for screening for other disorder (principal) ==

== ENCOUNTER 2022-11-23 02:30 | Emergency (ER) | payer OTHER, SELFPAY ==
--- NOTE | ~2022-11-23 | CT_ITS ---
EXAMINATION: CT ABDOMEN AND PELVIS WITHOUT CONTRAST CLINICAL INFORMATION: Abdominal pain, nausea COMPARISON: 09/27/2010 TECHNIQUE: Multidetector volumetric imaging was performed from the superior aspect of the liver through the pubic symphysis. Sagittal and coronal reformatted images were obtained on the technologist's workstation. This CT examination was performed using dose optimization techniques as appropriate, variously including the following: *Automated exposure control *Adjustment of mA and/or kV according to patient size (this includes techniques or standardized protocols for targeted exams where dose is matched to indication/reason for exam; i.e. extremities or head) *Use of iterative reconstruction technique DLP: 664 mGy-cm FINDINGS: LUNG BASES: The visualized lung bases are unremarkable. LIVER, GALLBLADDER, AND BILIARY TREE: The liver is normal in size, shape, and attenuation. No focal hepatic lesion or biliary ductal dilatation is identified. Gallbladder appears absent. PANCREAS: Mildly atrophic. SPLEEN: Normal size. Calcified granuloma noted. ADRENAL GLANDS: Unremarkable. KIDNEYS AND URETERS: Right renal pelvis appears slightly dilated, and there is a questionable punctate calculus at the right ureterovesicular junction. No left hydronephrosis or obstructing calculus. BLADDER: Unremarkable. GASTROINTESTINAL TRACT: No evidence of bowel obstruction. No significant bowel wall thickening is seen. Mild colonic diverticulosis. No free fluid or free air is seen. ABDOMINAL WALL: No significant hernia is appreciated. LYMPH NODES: Normal. VASCULAR: Unremarkable. PELVIC VISCERA: Unremarkable. OSSEOUS STRUCTURES: There is facet arthropathy of the lumbar spine. CT/CT abdomen pelvis wo IV con IMPRESSION: Questionable punctate calculus at the right ureterovesicular junction with slight dilatation of the right renal pelvis; correlation with urinalysis is recommended. No additional acute findings identified.
[2022-11-23 02:45] VITALS: BP 185/88; PULSE 79; RESP 18; TEMP 36.4; O2SAT 98; BMI 38.4
[2022-11-23 03:26] LABS: MANUAL DIFF FLAG NO
[2022-11-23 03:27] LABS: Basophils Percent Auto 0.5 % (0-2); Eosinophils Absolute Auto 0.1 X10*3/uL (0.0-0.4); Hematocrit 41.1 % (37.0-47.0); Hemoglobin 13.5 g/dl (12.0-16.0); Imm Gran Abs Auto 0.02 X10*3/uL (0.00-0.03); Imm Gran Pct Auto 0.2 % (0.0-0.4); Lymphocytes Absolute Auto 1.2 X10*3/uL (1.2-4.9); Mean Corpuscular HGB Conc 32.8 g/dl (31.0-35.0); Mean Corpuscular Hemoglobin 28.1 pg (27.0-33.0); Mean Corpuscular Volume 85.6 fL (80.0-98.0); Mean Platelet Volume 11.3 fL (9.4-12.3); Monocytes Absolute Auto 0.5 X10*3/uL (0.1-1.2); Monocytes Percent Auto 6.1 % (2-11); Neutrophils Absolute Auto 6.8 x10*3/uL (2.0-8.3); Neutrophils Percent Auto 78.2 % (45-73); Platelet Count 249 X10*3/uL (160-400); Red Cell Distribution Width 13.7 % (11.0-16.0); White Blood Count 8.7 X10*3/uL (4.8-10.8)
[2022-11-23 03:28] LABS: Appearance Urine Cloudy; Color Urine Yellow; Glucose Urine UA 100 mg/dL (Negative); Leukocyte Esterase Urine Moderate (2+) (Negative); Nitrite Urine Negative (Negative); PH 5.5 (5.0-9.0); UMIC TRIGGER UACC YES; Urine Blood Negative (Negative); Urine Ketones 15 mg/dL (Negative); Urine Protein 300 (3+) mg/dL (Neg-Trace)
[2022-11-23 03:33] LABS: Bacteria Urine 2+ (None Seen); Hyaline Casts Urine 0-2 /LPF (0-2); RBC Urine 0-2 /HPF (0-2); UACC Culture Trigger YES; WBC Urine >50 /HPF (0-5)
[2022-11-23 03:49] LABS: Alanine Aminotransferase 25 U/L (0-31); Albumin Level 3.7 g/dL (3.5-5.0); Alkaline Phosphatase 96 U/L (39-117); Anion Gap 16 (12-20); Aspartate Amino Transferase 20 U/L (5-31); Bilirubin Total 0.7 mg/dL (0.0-1.0); Blood Urea Nitrogen 17 mg/dL (9-16); Calcium 8.7 mg/dL (8.4-10.2); Carbon Dioxide 21 mmol/L (22-29); Chloride 104 mmol/L (96-108); Creatinine Clr Calc Pharmacy 78.2; Estimated Glomerular Filt Rate > 60; Glucose Random 227 mg/dL (60-115); Potassium 3.9 mmol/L (3.3-5.1); Sodium 137 mmol/L (135-145); Total Protein 7.1 g/dL (6.5-8.0)
[2022-11-23] MEDS: Ondansetron ODT 4 MG TAB.RAPDIS SUBLINGUAL (03:50)
[2022-11-23 04:05] VITALS: BP 163/89; PULSE 71; RESP 19; TEMP 36.6; O2SAT 95
[2022-11-23 06:00] VITALS: BP 152/77; PULSE 66; RESP 17; TEMP 36.6; O2SAT 95
[2022-11-23 08:02] LABS: Lipase 21 U/L (8-78)
--- NOTE | 2022-11-23 08:12 | ED.ABDPAIN ---
HPI - Abdominal Pain General Chief Complaint: Abdominal Pain Stated Complaint: abd pain Time Seen by Provider: 11/23/22 07:43 Source: patient Mode of arrival: EMS Limitations: no limitations History of Present Illness HPI narrative: 72-year-old female who presents emergency department for evaluation of abdominal pain. The patient states she had a sudden onset of sharp epigastric pain that started yesterday at 15:00 hours. She states that the pain is been constant but waxing and waning in intensity. She states the pain is anywhere from 7 to 10/10. She states that this is her 1st episode of this type of pain. The pain does not change with movement or breathing. She states she had nausea but no vomiting. She denied fever, chills, rhinorrhea, sore throat. She states she has a chronic cough secondary to her asthma. She denied chest pain. She also states she is short of breath chronically secondary to her asthma, she denied dyspnea on exertion. She denied diarrhea, black stools or bloody stools. She denied myalgias arthralgias I did review Dr. Quinn Matias does note on 11/20/2022 which was follow-up visit for left breast lumpectomy. 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 The patient states she is having no pain in her left breast. She has not noticed any redness, swelling or drainage from incision. Related Data Home Medications Medication Instructions Recorded Confirmed cholecalciferol (vitamin D3) 50 50 mcg PO DAILY 01/16/21 11/20/22 mcg (2,000 unit) capsule duloxetine 20 mg capsule,delayed 20 mg PO BID 01/16/21 11/20/22 release (Cymbalta) ibuprofen 400 mg tablet 400 mg PO TID 01/16/21 11/20/22 lorazepam 0.5 mg tablet 0.5 mg PO BID PRN Anxiety 01/16/21 11/20/22 quetiapine 25 mg tablet 25 mg PO DAILY 01/16/21 11/20/22 amlodipine 2.5 mg tablet 2.5 mg PO DAILY 01/18/21 11/20/22 bupropion HCl 300 mg 24 hr tablet, 300 mg PO QAM 06/14/21 11/20/22 extended release duloxetine 60 mg capsule,delayed 60 mg PO QAM 06/14/21 11/20/22 release Previous Rx's Medication Instructions Recorded docusate sodium 100 mg capsule 100 mg PO BEDTIME #90 caps 06/14/21 fluticasone propionate 110 2 puff PO BID #36 grams 03/28/22 mcg/actuation HFA aerosol inhaler (Flovent HFA) rosuvastatin 20 mg tablet 20 mg PO DAILY #90 tabs 07/25/22 losartan 100 mg tablet 100 mg PO DAILY #90 tabs 09/26/22 pantoprazole 40 mg tablet,delayed 40 mg PO DAILY #90 tabs 09/26/22 release metoprolol tartrate 25 mg tablet 25 mg PO BID #180 tabs 10/29/22 oxycodone 5 mg tablet 5 mg PO Q6H PRN pain (scale score 11/05/22 7-10) #15 tabs albuterol sulfate 90 mcg/actuation 2 puff inhalation Q4-6H PRN 11/08/22 aerosol inhaler (ProAir HFA) Wheezing #8.5 grams aluminum hydrox-magnesium carb 254 10 ml PO QID PRN dyspepsia #355 mL 11/23/22 mg-237.5 mg/5 mL oral suspension (Gaviscon Extra Strength) Allergies Allergy/AdvReac Type Severity Reaction Status Date / Time shrimp Allergy Mild unknown Verified 11/20/22 10:04 Review of Systems Review of Systems Yes all other systems are reviewed and are negative [facility] Past Medical History [facility] Narrative: Social history: She denies tobacco, alcohol and drug use. Medical History Advanced directives, counseling/discussion Bronchial asthma Elevated cholesterol Essential hypertension GERD (gastroesophageal reflux disease) Impaired fasting glucose Uses hearing aid Vaccination refused by patient Surgical History History of cholecystectomy History of esophagogastroduodenoscopy (EGD) History of lumpectomy of left breast (11/05/22) Hx of colonoscopy Status post left breast lumpectomy (11/05/22) Family History Family History Father Diabetes mellitus Essential hypertension CVA (cerebral vascular accident) Dyslipidemia Mother Dyslipidemia CVA (cerebral vascular accident) Mother Mental health disorder Brother Mental health disorder Paternal Aunt Breast cancer Ovarian cancer Maternal Aunt Breast cancer Ovarian cancer Social History Social History Housing: Apartment Are you a primary client care specialist to a significant other at home: No Do you presently have visiting nurse or other home services: No Alcohol intake: never Patient Tobacco Use Status: Never used Tobacco e-Cigarette/Vaping Use: Never Used Advance Directives: Yes Advance Directives on File: Yes Advance Directives Date on File: 11/08/22 Current occupational status: disabled Cognitive needs: No Hearing needs: Yes Vision needs: Yes Physical Exam ED Vital Signs: Vital Signs - 24 hr 11/23/22 02:45 11/23/22 04:05 11/23/22 06:00 Temperature 97.5 F 97.9 F 97.9 F Pulse Rate 79 71 66 Respiratory Rate 18 19 17 Blood Pressure 185/88 H 163/89 H 152/77 H Pulse Oximetry 98 95 95 Oxygen Delivery Method Room Air Room Air Room Air BMI result Body Mass Index 38.4 Const Other: Awake, alert, female patient, very pleasant cooperative, she is sitting upright on the stretcher, she is holding her epigastric area secondary to pain, she is able to answer all questions, does not appear to be dyspneic. [facility] Head: Yes normal to inspection, Yes normocephalic and Yes atraumatic Ears: external ears normal General nose exam: Normal external nose present Face and sinus: Yes normal facial exam Mouth: Normal oral and palatal mucosa present Throat: Yes posterior oropharynx normal Eyes General: appearance normal, both eyes and all related structures Pupils: Equal, round and reactive pupils present Neck Neck: Yes normal visual inspection, Yes no lymphadenopathy, Yes trachea midline and Yes supple Chest Other: The patient's left breast incision is intact, there is no erythema, increased warmth or drainage, there is no tenderness palpation Resp Effort & Inspection: normal respiratory effort and able to speak in complete sentences Auscultation: clear to auscultation bilaterally Cardio Rate: regular rate Rhythm: regular rhythm Heart sounds: S1 normal heart sound present, S2 normal heart sound present and no murmurs GI Inspection: Yes normal to inspection Palpation (GI): Soft to palpation, Tenderness to palpation present (GI) in the epigastrum (Moderate) and no guarding Auscultation: normal bowel sounds General: Yes no CVA tenderness Back/Spine/Pelvis Back: no CVA tenderness Skin General skin exam: no rashes or lesions noted Neuro Cranial nerves: Yes Equal, round and reactive pupils present Cognition (Neuro): normal cognition Motor exam (neuro): 5/5 motor strength present throughout Extrem General: Yes normal to inspection Psych Appearance: grossly normal Speech and movement: Normal speech and movement present Affect: normal affect Attitude: cooperative Medical Decision Making Medical Decision Making MDM Narrative: 72-year-old female who presents emergency department for evaluation of sudden onset of epigastric pain that started yesterday at 15:00 hours, the pain is been a constant sharp pain which waxes in intensity from 7 to 10/10, the pain does not change with movement or breathing. She did have associated nausea with no vomiting. She had no change in bowel movements. Vital signs revealed elevated BP 185/88 oz, normal heart rate respiratory rate of 79 18 with an O2 saturation of 98% on room air. Patient does have significant epigastric tenderness otherwise exam is unremarkable. Patient's left breast lumpectomy area appears to be healing well with no evidence of cellulitis. 0825: My independent evaluation of the patient's laboratory evaluation is as follows: CBC normal. CMP revealed an elevated glucose of 227. Lipase was normal. Urinalysis revealed 2+ leukocyte esterase, microscopic revealed greater than 50 WBCs 2 +bacteria and 10-20 squamous cells-this is a non clean catch specimen, patient is asymptomatic and has no frequency urgency or dysuria. CT scan of the abdomen pelvis did reveal a right punctate ureteral calculi at the UVJ but I do not think this is the cause of her pain. Given her negative workup and her epigastric tenderness, I believe the patient's pain is caused by gastritis. She was ordered to get Maalox 30 cc, viscous lidocaine 10 cc and 10 cc orally 0914: The patient's lipase was normal. The patient's pain improved with the above treatment. She states that her pain went from 10/10 to 5/10. The patient was given oxycodone 10 mg orally (takes this at home). Patient's pain is most likely secondary to severe gastritis unclear etiology. The patient was advised to take Gaviscon extra-strength 10 mL 4 times a day. She is advised to continue her other medications including her pantoprazole. She was given printed and verbal instructions discharged home. Differential Diagnosis Differential diagnosis includes was not limited to gastritis, peptic ulcer disease, pancreatitis, kidney stone Lab Data 11/23/22 03:22 11/23/22 03:22 Labs: Lab Results 11/23/22 11/23/22 11/23/22 Range/Units 03:18 03:22 03:22 WBC 8.7 (4.8-10.8) X10*3/uL RBC 4.80 (4.20-5.50) X10*6/uL Hgb 13.5 (12.0-16.0) g/dl Hct 41.1 (37.0-47.0) % MCV 85.6 (80.0-98.0) fL MCH 28.1 (27.0-33.0) pg MCHC 32.8 (31.0-35.0) g/dl RDW 13.7 (11.0-16.0) % Plt Count 249 (160-400) X10*3/uL MPV 11.3 (9.4-12.3) fL Immature Gran % (Auto) 0.2 (0.0-0.4) % Neut % (Auto) 78.2 H (45-73) % Lymph % (Auto) 14.0 L (20-40) % Warren % (Auto) 6.1 (2-11) % Eos % (Auto) 1.0 (0-4) % Baso % (Auto) 0.5 (0-2) % Lymph # (Auto) 1.2 (1.2-4.9) X10*3/uL Warren # (Auto) 0.5 (0.1-1.2) X10*3/uL Eos # (Auto) 0.1 (0.0-0.4) X10*3/uL Baso # (Auto) 0.0 (0.0-0.2) X10*3/uL Abs Immat Gran (auto) 0.02 (0.00-0.03) X10*3/uL Absolute Neuts (auto) 6.8 (2.0-8.3) x10*3/uL Absolute Nucleated RBC 0.000 (0.0-0.012) X10*3/uL Nucleated RBC % (auto) 0.0 (0.0-0.2) /100WBC Sodium 137 (135-145) mmol/L Potassium 3.9 (3.3-5.1) mmol/L Chloride 104 (96-108) mmol/L Carbon Dioxide 21 L (22-29) mmol/L Anion Gap 16 (12-20) BUN 17 H (9-16) mg/dL Creatinine 0.72 (0.5-1.4) mg/dL Estim Creat Clear Calc 78.2 Estimated GFR > 60 Random Glucose 227 H (60-115) mg/dL Calcium 8.7 D (8.4-10.2) mg/dL Total Bilirubin 0.7 (0.0-1.0) mg/dL AST 20 (5-31) U/L ALT 25 (0-31) U/L Alkaline Phosphatase 96 (39-117) U/L Total Protein 7.1 (6.5-8.0) g/dL Albumin 3.7 (3.5-5.0) g/dL Lipase 21 (8-78) U/L Urine Color Yellow Urine Appearance Cloudy Urine pH 5.5 (5.0-9.0) Ur Specific Triangle 1.020 (1.005-1.025) Urine Protein 300 (3+) H (Neg-Trace) mg/dL Urine Glucose (UA) 100 H (Negative) mg/dL Urine Ketones 15 (Negative) mg/dL Urine Blood Negative (Negative) Urine Nitrite Negative (Negative) Ur Leukocyte Esterase Moderate (2+) H (Negative) Urine RBC 0-2 (0-2) /HPF Urine WBC >50 H (0-5) /HPF Ur Squamous Epith Cells 11-20 (0-2) /HPF Urine Bacteria 2+ (None Seen) Hyaline Casts 0-2 (0-2) /LPF Radiology Impression Discussion of test interpretation with radiology: I have reviewed the radiologist's reading. Radiologist Impression: CT abdomen pelvis wo IV con IMPRESSION: Questionable punctate calculus at the right ureterovesicular junction with slight dilatation of the right renal pelvis; correlation with urinalysis is recommended. No additional acute findings identified. Dictated By:Rolf Malone MDSigned By:<Electronically signed by Rolf Malone MD in [place]>11/23/22 0502 Medications Administered Discontinued Medications Generic Name Dose Route Start Last Admin Trade Name Freq PRN Reason Stop Dose Admin Al Hydroxide/Mg Hydroxide 30 ml 11/23/22 08:04 11/23/22 08:25 Magnesium Hydrox/Alum Hydrox 30 Ml Oral.Susp PO 11/23/22 08:05 30 ml ONCE STA Administration Belladonna Alkaloids/Phenobarbital 10 ml 11/23/22 08:04 11/23/22 08:24 Phenobarb/Hyoscy/Atropine/Scop 10 Ml Elixir PO 11/23/22 08:05 10 ml ONCE ONE Administration Lidocaine HCl 10 ml 11/23/22 08:04 11/23/22 08:24 Lidocaine Hcl Viscous 2 % 15 Ml Solution PO 11/23/22 08:05 10 ml ONCE ONE Administration Ondansetron HCl 4 mg 11/23/22 03:14 11/23/22 03:50 Ondansetron Odt 4 Mg Tab.Rapdis SUBLINGUAL 11/23/22 03:15 4 mg ONCE ONE Administration Oxycodone HCl 10 mg 11/23/22 09:13 11/23/22 09:16 Oxycodone Hcl Immed Release 5 Mg Tablet PO 11/23/22 09:14 10 mg ONCE ONE Administration Discharge Plan Discharge Clinical Impression: Gastritis Qualifiers: Gastritis type: unspecified gastritis Chronicity: acute Gastritis bleeding: without bleeding Qualified Code(s): K29.00 - Acute gastritis without bleeding Patient Disposition: Home, Self-Care Instructions: Gastritis (ED) Additional Instructions: Your laboratory evaluation was unremarkable. The CT scan did not reveal a clear cause for your pain. There was an incidental finding parental (not related to your pain) of a very small kidney stone in the ureter by the bladder. Please see the report below, you should discuss this with your doctor. Take extra-strength Gaviscon 10 mL (2 tsp) 4 times a day as needed for abdominal pain. Follow-up with your doctor in 2 days. Please return to the emergency department if your symptoms get worse or if you develop any symptoms that are concerning to you. Prescriptions: New Gaviscon Extra Strength 254-237.5 mg/5 mL suspension 10 ml PO QID PRN (Reason: dyspepsia) Qty: 355 0RF No Action Flovent HFA 110 mcg/actuation HFA aerosol inhaler 2 puff PO BID Qty: 36 1RF rosuvastatin 20 mg tablet 20 mg PO DAILY Qty: 90 2RF pantoprazole 40 mg tablet,delayed release (DR/EC) 40 mg PO DAILY Qty: 90 0RF losartan 100 mg tablet 100 mg PO DAILY Qty: 90 1RF metoprolol tartrate 25 mg tablet 25 mg PO BID Qty: 180 1RF oxycodone 5 mg tablet 5 mg PO Q6H PRN (Reason: pain (scale score 7-10)) Qty: 15 0RF Rx Instructions: Partial Fill upon patient request. duloxetine [Cymbalta] 20 mg capsule,delayed release(DR/EC) 20 mg PO BID quetiapine 25 mg tablet 25 mg PO DAILY lorazepam 0.5 mg tablet 0.5 mg PO BID PRN (Reason: Anxiety) ibuprofen 400 mg tablet 400 mg PO TID cholecalciferol (vitamin D3) 50 mcg (2,000 unit) capsule 50 mcg PO DAILY amlodipine 2.5 mg tablet 2.5 mg PO DAILY albuterol sulfate [ProAir HFA] 90 mcg/actuation HFA aerosol inhaler 2 puff inhalation Q4-6H PRN (Reason: Wheezing) Qty: 8.5 2RF bupropion HCl 300 mg tablet extended release 24 hr 300 mg PO QAM duloxetine 60 mg capsule,delayed release(DR/EC) 60 mg PO QAM docusate sodium 100 mg capsule 100 mg PO BEDTIME Qty: 90 3RF
[2022-11-23] MEDS: Lidocaine HCl Viscous 2 % 15 ML SOLUTION 10 ML PO (08:24)
[2022-11-23] MEDS: PHENobarb/Hyoscy/Atropine/Scop 10 ML ELIXIR PO (08:24)
[2022-11-23] MEDS: Magnesium Hydrox/Alum Hydrox 30 ML ORAL.SUSP PO (08:25)
[2022-11-23] MEDS: oxyCODONE HCl Immed Release 5 MG TABLET 10 MG PO (09:16)
== END 2022-11-23 09:26 | disposition home or self-care (01) ==
PROVIDERS: Emergency Provider Emergency Medicine Emergency Medical Services; PCP Internal Medicine
DX: K29.00 Acute gastritis without bleeding (principal); R10.13 Epigastric pain; Z79.899 Other long term (current) drug therapy
CPT/HCPCS: 36415; 74176; 80053; 81001; 83690; 85025; 87086; 99284

== ENCOUNTER 2022-11-28 06:03 | Day surgery (SDC) | payer OTHER, SELFPAY ==
[2022-11-28] VITALS (8 sets, daily range): BP systolic 131–178; BP diastolic 63–83; PULSE 56–77; RESP 15–20; TEMP 36.1–36.5; O2SAT 96; BMI 38.4
[2022-11-28] MEDS: Lactated Ringers 1,000 ML 100 ML IVCONT (06:45)
--- NOTE | 2022-11-28 07:10 | P.CONAN_ITS ---
HPI - Anesthesia Eval Consult details Narrative: reexcision of breast mass PMFSH Active Problems Active Problems: All Active Problems (Updated 11/28/22 @ 06:34 by Roxie Seay, RN) Dyslipidemia (Acute) Depression (Acute) Dyslipidemia (Acute) Uses hearing aid (Acute) Impaired fasting glucose (Acute) Bronchial asthma (Acute) Essential hypertension (Acute) Past Medical History Medical History (Updated 11/28/22 @ 06:34 by Roxie Seay RN) Bronchial asthma Depression Dyslipidemia Elevated cholesterol Essential hypertension GERD (gastroesophageal reflux disease) HX: breast cancer Impaired fasting glucose Uses hearing aid Vaccination refused by patient Family History Family History Father Diabetes mellitus Essential hypertension CVA (cerebral vascular accident) Dyslipidemia Mother Dyslipidemia CVA (cerebral vascular accident) Mother Mental health disorder Brother Mental health disorder Paternal Aunt Breast cancer Ovarian cancer Maternal Aunt Breast cancer Ovarian cancer Family history of problems with anesthesia: No Surgical History Surgical History (Updated 11/28/22 @ 06:34 by Roxie Seay RN) History of breast lump/mass excision History of cholecystectomy History of esophagogastroduodenoscopy (EGD) History of lumpectomy Hx of colonoscopy History of Problems with Anesthesia: No Social History Social History Housing: Apartment Are you a primary interior plant caretaker to a significant other at home: No Do you presently have visiting nurse or other home services: No Alcohol intake: never Patient Tobacco Use Status: Never used Tobacco e-Cigarette/Vaping Use: Never Used Are you DNR?: No Advance Directives: Yes Advance Directives on File: Yes Advance Directives Date on File: 11/08/22 Nutrition Risks: No Nutritional Risk Current occupational status: disabled Cognitive needs: No Hearing needs: Yes Vision needs: Yes Meds Allergies Allergy/AdvReac Type Severity Reaction Status Date / Time shrimp Allergy Mild itch Verified 11/28/22 06:26 Active Medications: Current Medications Lactated Ringer's (Lr) 1,000 mls @ 100 mls/hr IVCONT .Q10H ENRIQUE Last Admin: 11/28/22 06:45 Dose: 100 mls/hr Home Medications Medication Instructions Recorded Confirmed Last Taken Type cholecalciferol (vitamin D3) 50 50 mcg PO DAILY 01/16/21 11/20/22 11/27/22 History mcg (2,000 unit) capsule duloxetine 20 mg capsule,delayed 20 mg PO BID 01/16/21 11/20/22 11/27/22 History release (Cymbalta) ibuprofen 400 mg tablet 400 mg PO TID 01/16/21 11/20/22 10/24/22 History lorazepam 0.5 mg tablet 0.5 mg PO BID PRN Anxiety 01/16/21 11/20/22 11/26/22 History quetiapine 25 mg tablet 25 mg PO DAILY 01/16/21 11/20/22 11/27/22 History amlodipine 2.5 mg tablet 2.5 mg PO DAILY 01/18/21 11/20/22 11/27/22 History bupropion HCl 300 mg 24 hr tablet, 300 mg PO QAM 06/14/21 11/20/22 11/27/22 History extended release duloxetine 60 mg capsule,delayed 60 mg PO QAM 06/14/21 11/20/22 11/27/22 History release Exam Exam Date and Time: November 28, 2022 0710 Height,Weight and Vital Signs: Height 5 ft 2 in Weight 95.254 kg Last Vital Signs Temp 97 F 11/28/22 06:19 Pulse 66 11/28/22 06:19 Resp 20 11/28/22 06:19 BP 178/83 H 11/28/22 06:19 Pulse Ox 96 11/28/22 06:19 O2 Del Method 11/28/22 06:19 Airway Mallampati Class: II TM Dist: >3cm Neck ROM: Limited Heart: rrr Lungs: cta Assessment and Plan Assessment Anesthesia Assessment: Anesthesia Plan Discussed and Chart Reviewed Final Anesthetic Review Family History of Problems with Anesthesia: No History of Problems with Anesthesia: No ASA Class: III Final Preanesthetic Review: No Changes in Pt Med Stat, Meds/Allgs Chart Reviewed, Consent Obtained/Reviewed and Anes Risks/Benef Reviewed Patient Risk: Intermediate Procedure Risk: Intermediate Anesthetic Plan Anesthetic Plan: GA Disposition: Standard PACU
--- NOTE | 2022-11-28 09:01 | P.OP_ITS ---
Operative Note Operative Note Date of Service: 11/28/22 Narrative: Preoperative diagnosis: Invasive ductal carcinoma left breast Postoperative diagnosis: same Procedure: wide excision of invasive ductal carcinoma left breast with partial excision of nipple-areolar complex Surgeon: Quinn Matias MD Office Analyst: Corrina Ann PA-C Anesthesia: general LMA Indications for procedure: 72-year-old female patient diagnosed with an invasive ductal carcinoma located centrally in the left breast, s/p left breast lumpectomy with LOCalizer localization and sentinel node biopsy. Patient was found to have a T1 N0 MX tumor measuring 1 cm limiter but extending to the skin surface just below the nipple-areolar complex in the inner lower quadrant. a positive margin was noted at that skin margin. Montilla today for wider excision including partial resection of nipple-areolar complex. Operative findings: Previous incision in the outer upper quadrant round the nipple-areolar complexes clean, dry, and intact. No seroma or hematoma is identified. Specimen: Wide excision left invasive ductal carcinoma including skin and nipple-areolar complex Estimated blood loss: 2 mL Complications: none Procedure details: patient was brought to the OR placed in a supine position. A fter administering general anesthesia the patient's left breast was prepped with ChloraPrep and draped in a sterile fashion. A surgical time-out was called the consent confirmed. Patient received preoperative antibiotics and Venodyne boots were in place. Local anesthesia was then infiltrated along the medial nipple-areolar complex. A curvilinear incision was made to include a wedge of skin from the lower inner quadrant as well as a wedge of nipple-areolar complex in the same quadrant. The incision was carried down through subcutaneous tissue. Of core tissue to include the previous excision site was then excised using electrocautery. Stay sutures were placed at the corner of the nipple- areolar complex to facilitate closure. The specimen was marked with a long suture at the nipple margin, a short suture at the lateral margin and a loop suture at the medial margin. Specimen was sent for routine pathology. Wounds were checked for hemostasis and irrigated with saline solution. This was then suctioned dry. The corner of the nipple-areolar complex was then reapproximated using interrupted 3-0 Polysorb sutures. The skin margins were then reapproximated to the nipple-areolar complex margin again using interrupted 3-0 Polysorb sutures. Skin was then closed using a running subcuticular 4-0 Polysorb suture. This was then covered with Dermabond followed by Steri-Strips, 4 x 4 gauze and Tegaderm. The patient tolerated the procedure well. Sponge, instrument, and needle counts reported as correct. The patient was transferred to PACU in stable condition.
== END 2022-11-28 11:05 | disposition home or self-care (01) ==
PROVIDERS: PCP Internal Medicine; Visit Provider Surgery
PROC: (CPT 19120; principal; 2022-11-28 07:30)
DX: C50.912 Malignant neoplasm of unspecified site of left female breast (principal); Z17.0 Estrogen receptor positive status [ER+]; N60.32 Fibrosclerosis of left breast; N62 Hypertrophy of breast; I10 Essential (primary) hypertension; R73.01 Impaired fasting glucose; E78.5 Hyperlipidemia, unspecified; F32.A Depression, unspecified; J45.909 Unspecified asthma, uncomplicated; Z79.51 Long term (current) use of inhaled steroids; Z79.1 Long term (current) use of non-steroidal anti-inflammatories (NSAID); Z79.899 Other long term (current) drug therapy; Z98.890 Other specified postprocedural states
CPT/HCPCS: 19301; 88307; J0131; J0690; J1100; J1885; J2405; J2795

== ENCOUNTER → 2022-12-07 11:11 | Outpatient (BNVA) | payer OTHER, SELFPAY | PROVIDERS: PCP Internal Medicine; Visit Provider Surgery ==

== ENCOUNTER → 2022-12-18 15:40 | Outpatient (BNV) | payer OTHER, SELFPAY | PROVIDERS: PCP Internal Medicine; Visit Provider Internal Medicine Medical Oncology | DX: C50.912 Malignant neoplasm of unspecified site of left female breast (principal) | CPT/HCPCS: 99204; 99213 ==

== ENCOUNTER → 2023-01-08 15:09 | Outpatient (BNVA) | payer OTHER, SELFPAY | PROVIDERS: PCP Internal Medicine; Visit Provider Surgery ==

== ENCOUNTER 2023-01-09 13:25 | Outpatient (REF) | payer OTHER, SELFPAY ==
[2023-01-09 16:35] LABS: Anion Gap 11 (12-20); Blood Urea Nitrogen 20 mg/dL (9-16); Calcium 9.4 mg/dL (8.4-10.2); Carbon Dioxide 23 mmol/L (22-29); Chloride 107 mmol/L (96-108); Estimated Glomerular Filt Rate > 60; Glucose Random 220 mg/dL (60-115); Potassium 4.4 mmol/L (3.3-5.1); Sodium 137 mmol/L (135-145)
[2023-01-09 16:52] LABS: Creatinine Urine 130.16 mg/dL; Protein/Creatinine Ratio, Ur 1.24 (<0.2); Total Protein Urine Random 161 mg/dL (<12)
== END 2023-01-09 13:26 | disposition home or self-care (01) ==
LOC: HO.HMGCLDS 13:25
PROVIDERS: PCP Internal Medicine; Visit Provider Internal Medicine Hypertension Specialist
DX: I10 Essential (primary) hypertension (principal)
CPT/HCPCS: 36415; 80048; 84156

== ENCOUNTER 2023-03-14 10:33 | Outpatient (REF) | payer OTHER, SELFPAY ==
--- NOTE | ~2023-03-14 | MM_ITS ---
EXAMINATION: BONE DENSITOMETRY CLINICAL INDICATION: Osteopenia. Breast cancer. COMPARISON: Previous BD dated 03/07/2021 and baseline BD dated 11/18/2007. TECHNIQUE: Using a [employer] DXA System (software version: 13.1) manufactured by [employer], dual-energy x-ray absorptiometry was performed of the lumbar spine and left hip. The images are of good technical quality. Summary results are attached. FINDINGS: AP SPINE L1-L4: Current: BMD 1.257 g/cm2, Z-score 1.3, T-score 0.6, normal, 0.3% decrease from previous, 0.6% decrease from baseline (<5% change is not significant). Prior: BMD 1.261 g/cm2. Baseline: BMD 1.264 g/cm2. LEFT FEMUR, NECK: Current: BMD 0.883 g/cm2, Z-score 0.0, T-score -1.1, osteopenia. Prior: BMD 0.828 g/cm2. Baseline: BMD 0.946 g/cm2. LEFT FEMUR, TOTAL: Current: BMD 1.029 g/cm2, Z-score 1.0, T-score 0.2, normal, 2.2% decrease from previous, 9.9% decrease from baseline (<5% change is not significant). Prior: BMD 1.052 g/cm2. Baseline: BMD 1.142 g/cm2. IDENTIFIED RISK FACTORS: Menopause, renal. HISTORY OF FRACTURE: None listed. MEDICATIONS: Multivitamin, vitamin D, calcitonin. MM/XR DEXA axial skeleton IMPRESSION: 1. DIAGNOSIS: Osteopenia based on the lowest T-score value of -1.1 in the femoral neck applying World Health Organization criteria. 2. 10-YEAR FRACTURE RISK PREDICTION, FRAX: Not performed in this patient on estrogen or bone building treatments. 3. Treatment Recommendations: NOF guidelines recommend consideration for treatment in postmenopausal women and men age 50 and older presenting with the following: -A hip or vertebral (clinical or morphometric) fracture. -T-score less than or equal to -2.5 at the femoral neck or spine after appropriate evaluation to exclude secondary causes. -Low bone mass at the hip or spine and a 10-year fracture probability by FRAX of greater than or equal to 3% for hip fracture or greater than or equal to 20% for major osteoporotic fracture based on the [place] adapted WHO algorithm. 4. Other Recommendations: All treatment decisions require clinical judgment and consideration of individual patient factors, including patient preferences, comorbidities, previous drug use, risk factors not captured in the FRAX model (e.g. frailty, falls, vitamin D deficiency, increased bone turnover, interval significant decline in bone density) and possible under or overestimation of fracture risk by FRAX. Additional medical evaluation for secondary cause of low bone mineral density may be appropriate. FUTURE SCAN RECOMMENDATION: People with diagnosed cases of osteoporosis or at high risk for fracture should have regular bone mineral density tests. For patients eligible for Medicare, routine testing is allowed once every 2 years. The testing frequency can be increased to one year for patients who have rapidly progressing disease, those who are receiving or discontinuing medical therapy to restore bone mass, or have additional risk factors.
== END 2023-03-14 10:34 | disposition home or self-care (01) ==
LOC: HO.MAMMO 10:33
PROVIDERS: PCP Internal Medicine; Visit Provider Internal Medicine Medical Oncology
DX: Z13.820 Encounter for screening for osteoporosis (principal); Z78.0 Asymptomatic menopausal state; M85.80 Other specified disorders of bone density and structure, unspecified site
CPT/HCPCS: 77080

== ENCOUNTER 2023-04-09 14:07 | Outpatient (AMB) | payer OTHER, SELFPAY ==
--- NOTE | 2023-04-09 14:23 | MHC.OFFVIS ---
Intake Vital Signs 04/09/23 14:33 Height 5 ft 2 in Weight 207 lb 6 oz BMI 37.9 BP 155/72 H Blood Pressure Location Lt brachial Position Sitting Pulse 67 Intake Visit Reasons: 3 month follow up, breast exam Intake Note: Patient is seen in office for 3 month follow up visit, breast exam. 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 Accompanied by: Self / Same As Patient Allergies shrimp Allergy (Mild, Verified 04/09/23 14:30) itch Medication List - Last Reconciled 04/09/23 by Quinn Matias MD albuterol sulfate 90 mcg/actuation (ProAir HFA) 2 puffs inhalation Q4-6H PRN amlodipine 2.5 mg PO DAILY anastrozole (Arimidex) 1 mg PO DAILY bupropion HCl 300 mg PO QAM cholecalciferol (vitamin D3) 50 mcg PO DAILY docusate sodium 100 mg PO BEDTIME duloxetine (Cymbalta) 20 mg PO BID duloxetine 60 mg PO QAM fluticasone propionate 110 mcg/actuation (Flovent HFA) 2 puffs PO BID lorazepam 0.5 mg PO BID PRN losartan 100 mg PO DAILY metoprolol tartrate 25 mg PO BID pantoprazole 40 mg PO DAILY quetiapine 25 mg PO DAILY rosuvastatin 20 mg PO DAILY HPI HPI Comments History of Present Illness Details 73-year-old female patient found to have a T1 N0 MX invasive carcinoma with solid papillary, ductal and lobular features, 1 cm, grade 2, ER/CA positive, HER2 Radha negative, high proliferation. She underwent a left breast lumpectomy with LOCalizer localization, sentinel node biopsy on 11/05/2022. Pathology revealed a 1 cm, grade 2 invasive carcinoma as noted above. Two sentinel nodes were negative for metastatic disease. The margins were found to have positive margins at the skin and she was subsequently returned to the OR on 11/28/2022 for partial excision of the left breast skin, nipple-areolar complex. She reports feeling well today with no particular breast symptoms at this time. She was evaluated by Dr. North and started on Arimidex, which she is tolerating well. Oncotype testing revealed a score of 10. She was evaluated by radiation oncology at [facility] and decision made to forego radiation therapy. She reports less pinching but still some burning in the nipple and axilla. She is scheduled for a yearly mammogram on 11/01/2023. [facility] Medical History Bronchial asthma Depression Dyslipidemia Elevated cholesterol Essential hypertension GERD (gastroesophageal reflux disease) HX: breast cancer Impaired fasting glucose Uses hearing aid Vaccination refused by patient Surgical History History of breast lump/mass excision History of cholecystectomy History of esophagogastroduodenoscopy (EGD) History of lumpectomy History of lumpectomy of left breast (11/28/22) Hx of colonoscopy Family History Father Diabetes mellitus Essential hypertension CVA (cerebral vascular accident) Dyslipidemia Mother Dyslipidemia CVA (cerebral vascular accident) Mother Mental health disorder Brother Mental health disorder Paternal Aunt Breast cancer Ovarian cancer Maternal Aunt Breast cancer Ovarian cancer Social History Housing: Apartment Are you a primary pet care associate to a significant other at home: No Do you presently have visiting nurse or other home services: No Alcohol intake: never Patient Tobacco Use Status: Never used Tobacco e-Cigarette/Vaping Use: Never Used Advance Directives Date on File: 11/08/22 Current occupational status: disabled Cognitive needs: No Hearing needs: Yes Vision needs: Yes Review of Systems Const All systems reviewed & are unremarkable except as noted in HPI and below Denies chills, Denies fever(s), Denies headache(s), Denies poor appetite and Denies weakness ENT Denies headache(s) Card Denies chest pain, Denies irregular heart rhythm, Denies palpitations and Denies dyspnea Resp Denies cough, Denies excessive phlegm production and Denies dyspnea GI Denies abdominal pain, Denies bloating, Denies change in bowel habits, Denies constipation, Denies heartburn, Denies diarrhea, Denies nausea and Denies vomiting Denies urinary frequency Musc Denies back pain, Denies muscle weakness and Denies numbness Skin/Breast Denies changing lesions and Denies unusual bruising Neuro Denies headache(s), Denies numbness, Denies paresthesias and Denies weakness Psych Denies anxiety and Denies depression Endo Denies palpitations Jaylen/Lymph Denies lymphadenopathy Physical Exam Const General: cooperative and no acute distress Nutritional Appearance: well nourished Orientation/consciousness: patient oriented x3 Limitations: no limitations HEENT Head: Yes normocephalic and Yes atraumatic Ears: hearing grossly normal bilaterally Chest Other: Left breast incision in the periareolar location is clean, dry, and intact. Incision is soft with no hematoma or seroma. Mild tenderness to deep palpation. No new palpable mass, skin change, nipple retraction, nipple discharge, or enlarged lymph nodes. Left axillary incision is clean, dry, and intact as well. Right breast: No skin change, nipple discharge, palpable mass, or enlarged lymph nodes. Mild tenderness near the nipple-areolar complex with no palpable changes. Resp Effort & Inspection: normal respiratory effort, no audible wheezes, no cough and no respiratory distress Cardio Jugular venous distension: no JVD GI Inspection: Yes normal to inspection Skin Other: Warm, dry, no rash Neuro General: patient oriented x3 Extrem General: Yes no clubbing, cyanosis or edema Assessment & Plan Assessment & Plan (1) Carcinoma of left breast in female, estrogen receptor positive: Code(s): C50.912 - Malignant neoplasm of unspecified site of left female breast; Z17.0 - Estrogen receptor positive status [ER+] Plan 73-year-old female patient diagnosed with infiltrating ductal carcinoma of left breast status post left breast lumpectomy with localizer and sentinel node biopsy on 11/05/2022. Pathology confirmed infiltrating ductal carcinoma with 0 of 2 nodes with metastatic disease. Skin margins were positive however therefore she was returned to the office on 11/28/2022 for wider excision including nipple-areolar complex. She is currently on Arimidex and complains mainly of hot flashes. She continues her follow-up with Dr. North. She was evaluated by radiation oncology at [facility] and the decision made to forego radiation therapy. Examination today revealed no suspicious findings in either breast. I recommended follow-up in 3 months for and mammogram, scheduled for 11/01/2023. She is welcome to call sooner for any new concerns. Coding Level of Care Code Est Pt Level 3 (87469) Diagnoses Carcinoma of left breast in female, estrogen receptor positive C50.912; Z17.0
[2023-04-09 14:33] VITALS: BP 155/72; PULSE 67; BMI 37.9
== END 2023-04-09 14:43 | disposition home or self-care (01) ==
PROVIDERS: PCP Internal Medicine; Visit Provider Surgery
DX: C50.912 Malignant neoplasm of unspecified site of left female breast (principal); Z17.0 Estrogen receptor positive status [ER+]
CPT/HCPCS: 99213

== ENCOUNTER → 2023-04-09 14:07 | Outpatient (BNVA) | payer OTHER, SELFPAY | PROVIDERS: PCP Internal Medicine; Visit Provider Surgery | DX: C50.912 Malignant neoplasm of unspecified site of left female breast (principal); Z71.0 Person encountering health services to consult on behalf of another person | CPT/HCPCS: 99212 ==

== ENCOUNTER 2023-05-09 13:15 | Outpatient (AMB) | payer OTHER, SELFPAY ==
--- NOTE | 2023-05-09 13:25 | MHC.PC.OV ---
Vital Signs 05/09/23 13:26 Height 5 ft 2 in Weight 207 lb BMI 37.9 BP 120/70 Blood Pressure Location Rt brachial Position Sitting Pulse 66 Pulse Source Pulse Oximeter Pulse Oximetry (%) 94 Oxygen Delivery Method Room Air Intake Visit Reasons: 6 month follow up Labs Intake Note: Patient there to review labs. Allergies shrimp Allergy (Mild, Verified 05/09/23 14:08) itch Medication List - Last Reconciled 05/09/23 by Kathia Jenkins MD albuterol sulfate 90 mcg/actuation (ProAir HFA) 2 puffs inhalation Q4-6H PRN amlodipine 2.5 mg PO DAILY anastrozole (Arimidex) 1 mg PO DAILY bupropion HCl 300 mg PO QAM cholecalciferol (vitamin D3) 50 mcg PO DAILY docusate sodium 100 mg PO BEDTIME duloxetine (Cymbalta) 20 mg PO BID duloxetine 60 mg PO QAM fluticasone propionate 110 mcg/actuation (Flovent HFA) 2 puffs PO BID lorazepam 0.5 mg PO BID PRN losartan 100 mg PO DAILY metoprolol tartrate 25 mg PO BID pantoprazole 40 mg PO DAILY quetiapine 25 mg PO DAILY rosuvastatin 20 mg PO DAILY Tobacco use date assessed: 11/08/22 HPI 6 month follow up Labs HPI Details 73-year-old lady here today for her six-month follow-up. She has hypertension dyslipidemia, stable controlled on present treatment. Recent fasting labs however done showed her fasting glucose in the diabetic range with a hemoglobin A1c at 10.6% and average glucose over the last 3 months at 260 mg/dL. Fasting lipid panel, electrolytes, renal function are all within normal limits however. Does complain of increased thirst and feeling tired all the time, and does have urinary frequency.. [facility] Medical History (Updated 05/09/23 @ 14:28 by Kathia Jenkins MD) Bronchial asthma Depression Diabetes mellitus with hyperglycemia, without long-term current use of insulin Elevated cholesterol Essential hypertension GERD (gastroesophageal reflux disease) HX: breast cancer Uses hearing aid Vaccination refused by patient Surgical History History of breast lump/mass excision History of cholecystectomy History of esophagogastroduodenoscopy (EGD) History of lumpectomy History of lumpectomy of left breast (11/28/22) Hx of colonoscopy Family History Father Diabetes mellitus Essential hypertension CVA (cerebral vascular accident) Dyslipidemia Mother Dyslipidemia CVA (cerebral vascular accident) Mother Mental health disorder Brother Mental health disorder Paternal Aunt Breast cancer Ovarian cancer Maternal Aunt Breast cancer Ovarian cancer Social History Housing: Apartment Are you a primary care management coordinator to a significant other at home: No Do you presently have visiting nurse or other home services: No Alcohol intake: never Patient Tobacco Use Status: Never used Tobacco e-Cigarette/Vaping Use: Never Used Advance Directives Date on File: 11/08/22 Current occupational status: disabled Cognitive needs: No Hearing needs: Yes Vision needs: Yes Questionnaire Thrive Questionnaire Date Thrive assessed: 10/02/22 YESICA-7 AMB Questionnaire YESICA-7 Date YESICA - 7 assessed: 10/02/22 Source: Developed by Drs. Cb Dickson, Echo Smart, Arcenio Barajas and colleagues, with an educational jeffrey from [employer]. Review of Systems Const Denies chills, Denies fever(s), Denies headache(s), Reports malaise, Denies poor appetite and Denies weakness Eyes Reports blurry vision ENT Reports dizziness (Intermittent), Denies headache(s), Denies mouth lesions, Denies nasal congestion, Denies nasal discharge, Denies sinus pain, Denies sinus pressure and Denies sore throat Card Denies chest pain, Denies irregular heart rhythm, Denies palpitations and Denies dyspnea Resp Denies cough, Denies excessive phlegm production and Denies dyspnea GI Denies abdominal pain, Denies bloating, Denies change in bowel habits, Denies constipation, Denies heartburn, Denies diarrhea, Denies nausea and Denies vomiting Musc Denies back pain, Denies muscle weakness and Denies numbness Skin/Breast Denies unusual bruising Neuro Reports dizziness (Intermittent), Denies headache(s), Denies numbness, Denies paresthesias and Denies weakness Psych Denies anxiety and Denies depression Endo Denies palpitations Jaylen/Lymph Denies lymphadenopathy Physical exam (Primary Care) Vital Signs: Last Vital Signs Pulse 66 05/09/23 13:26 BP 120/70 05/09/23 13:26 Pulse Ox 94 05/09/23 13:26 Oxygen Delivery Method Room Air 05/09/23 13:26 BMI result Body Mass Index 37.9 Tobacco/Smoking Status: Tobacco use Status Tobacco use date assessed 11/08/22 05/09/23 13:28 Patient Tobacco Use Status Never used Tobacco 05/09/23 13:28 e-Cigarette/Vaping Use Never Used 05/09/23 13:28 Thrive Assessment: Date of Thrive Assessment Date Thrive assessed 10/02/22 05/09/23 13:28 Const General: comfortable, no acute distress and alert Orientation/consciousness: patient oriented x3 HENMT Other: wears hearing aids Head: Yes normocephalic and Yes atraumatic Ears: external ears normal, TM's normal bilaterally and EAC's normal General nose exam: Normal external nose present and No nasal discharge present Face and sinus: Yes sinuses nontender and Yes face symmetric Mouth: Normal oral and palatal mucosa present, tongue normal, oropharynx normal and moist mucous membranes Eyes General: appearance normal, both eyes and all related structures Conjunctivae: conjunctivae normal Sclerae: sclerae normal Pupils: Equal, round and reactive pupils present EOM: EOMs intact bilaterally Neck Neck: Yes full ROM, Yes no lymphadenopathy and Yes supple Resp Effort & Inspection: normal respiratory effort and able to speak in complete sentences Auscultation: clear to auscultation bilaterally Cardio Rate: regular rate Rhythm: regular rhythm Heart sounds: S1 normal heart sound present and S2 normal heart sound present GI Palpation (GI): Soft to palpation, nontender and no masses Auscultation: normal bowel sounds General: Yes no CVA tenderness Back/Spine/Pelvis Back: no CVA tenderness and No back tenderness Skin General skin exam: no rashes or lesions noted Neuro General: patient oriented x3, tone normal, moves all extremities, Normal light touch and pain sensation and no focal motor deficits Cranial nerves: Yes CN's II-XII intact bilaterally and Yes Equal, round and reactive pupils present Cognition (Neuro): normal cognition Gait exam (Neuro): Wide-based gait present Extrem General: Yes full ROM, Yes no joint enlargement, Yes no clubbing, cyanosis or edema and Yes no calf tenderness Psych Appearance: grossly normal and well kempt Mental Status: mental status grossly normal Speech and movement: Normal speech and movement present Affect: normal affect Attitude: cooperative Results Reviewed Results Reviewed: PEC : [id number] JUAN M: 05/07/23 STATUS: COMP REQ : [id number] RECD: 05/07/[address]: Kathia Jenkins MD COMP: 05/07/231205 ENTERED: 05/07/23-[address]: Kathryn North MD ORDERED: CMP, Met Prof Fast/R, Lipid Panel/R, Vitamin D 25-OH/R Test Result Flag Reference Site Sodium 138 135-145 mmol/L Potassium 4.3 3.3-5.1 mmol/L CL 105 96-108 mmol/L CO2 26 22-29 mmol/L Gap 11 L 12-20 BUN 16 9-16 mg/dL Creat 0.91 0.5-1.4 mg/dL Estimated CrCl 60.4 Provided height and weight: 157.48 cm, 93.7 kg. eGFR (calculated from the MDRD study equation) and eCrCl (calculated from the Cockcroft-Gault equation) are based on different parameters and may not yield comparable results. If eCrCl result is absurd, please check patient's height/weight. EGFR > 60 NOTE: For -[place] individuals, multiply the result by 1.210. Chronic Kidney Disease: Estimated GFR < 60 mL/min/1.73m2 Severe Kidney Disease: Estimated GFR < 15 mL/min/1.73m2 Glucose, Random 266 H 60-115 mg/dL FBS 265 H 60-99 mg/dL A fasting glucose of 126 mg/dl or greater on more than one occasion is considered diagnostic of diabetes. CA 9.7 8.4-10.2 mg/dL Total Bili 0.4 0.0-1.0 mg/dL AST (GOT) 31 5-31 U/L ALT (GPT) 31 0-31 U/L Protein, Total 8.0 6.5-8.0 g/dL Alb 3.6 3.5-5.0 g/dL Triglyceride 95 mg/dL Desirable Triglyceride: less than 150 mg/dL Borderline High Triglyceride 150-199 mg/dL High Triglyceride: 200-499 mg/dL Very High Triglyceride: greater than or equal to 5OO mg/dL Chol 139 mg/dL Desirable Cholesterol: less than 200 mg/dL Borderline High Cholesterol: 200-239 mg/dL High Cholesterol: greater than 239 mg/dL LDL Calculated 78 mg/dl Desirable LDL: less than 100 mg/dL Near Optimal/Above Optimal LDL: 110-129 mg/dL Borderline High LDL: 130-159 mg/dL High LDL: 160-189 mg/dL Very High LDL: greater than or equal to 190 mg/dL HDL 42 mg/dL Desirable HDL: greater than 40 mg/dL Note: This HDL assay may give artificially low results in patients with liver disease. Alk Phos 109 39-117 U/L Vit D 25-OH Tot 36.2 >30 ng/mL Health Based Reference Values* < 20 ng/mL Deficient 20-30 ng/mL Insufficient > 30 ng/mL Sufficient *Claire ROSALES. N Engl J Med. 2007;[id number] Care must be taken in interpreting Vitamin D results from different laboratories and methodologies. Published data demonstrated that results from patients undergoing hemodialysis may show a negative bias when tested with various automated 25-OH vitamin D assays when compared to LC-MS/MS. When testing samples from patients whose predominant form of Vitamin D is Vitamin D2, such as patients receiving Vitamin D2 supplementation, results that are subtherapeutic should be confirmed with another method such as LC-MS/MS. Laboratory Tests 05/07/23 11:19 Estimat Average Glucose 260 Hemoglobin A1c % 10.7 Assessment and Plan Assessment & Plan (1) Diabetes mellitus with hyperglycemia, without long-term current use of insulin: Code(s): E11.65 - Type 2 diabetes mellitus with hyperglycemia Plan: Recent lab results reviewed with patient, with sugar and hemoglobin A1c elevated. Started on metformin 500 mg per tablet, to take 1 tablet initially with supper for 1 week and then increase to twice a day dosing breakfast and supper if tolerated. Instructed to check fasting blood sugar at home, maintain log and bring to next appointment for review to our asthma educator for further guidance with regards to diet and how to check sugars at home. Reinforced diabetic diet and regular exercise with patient. Counseled regarding importance of yearly diabetes retinopathy screening. Patient advised to inspect feet daily, for any signs of injury, callus or infection. Compliance with diet and regular exercise again stressed. Blood pressure goal is less than 130/80, goal LDL is less than 100 and goal hemoglobin A1c is less than 7% follow-up appointment made in--3-months, after fasting labs done. Recommended to get her yearly flu shot and COVID booster, but patient declines to get any vaccines but willing to get Prevnar 20 today, ordered and given to patient (2) Dyslipidemia: Code(s): E78.5 - Hyperlipidemia, unspecified Plan: Reviewed recent fasting lipid profile with patient with levels within normal limits, . Continue with rosuvastatin 20 mg daily , in addition to adherence to low-cholesterol diet and regular exercise, at least 30 minutes 3 to 4 times a week. Advised patient to make healthy food choices, eat more fruits, vegetables, whole grains, wild caught fish and low-fat dairy. Limit amount of meat and fried or fatty food products, as well as processed foods and fast foods. Follow-up scheduled with repeat fasting lipid panel in 3 months. (3) Essential hypertension: Code(s): I10 - Essential (primary) hypertension Plan: Blood pressure at goal of less than 130/80. Continue with current medication. Reinforced importance of following a low sodium diet, getting regular exercise, and lowering stress levels. (4) Need for pneumococcal 20-valent conjugate vaccination: Code(s): Z23 - Encounter for immunization Orders: Referrals Ophthalmology Referral E11.65 - Type 2 diabetes mellitus with hyperglycemia, Z13.5 - Encounter for screening for eye and ear disorders Medications: New metformin And start taking 500 mg tablet with supper initially for the 1st week, and increase dose on 2nd week to 1 tablet twice a day with meals. 500 mg PO BID 60 tabs 3RF blood-glucose meter (FreeStyle [place] Lite kit) Check fasting glucose twice a day before meals and keep a record of reading 1 ea 0RF E11.65 - Type 2 diabetes mellitus with hyperglycemia blood sugar diagnostic (FreeStyle Lite Strips) Check fasting glucose twice a day before meals 100 ea 5RF E11.65 - Type 2 diabetes mellitus with hyperglycemia lancets (FreeStyle Lancets) Check fasting glucose twice a day before meals 100 ea 5RF E11.65 - Type 2 diabetes mellitus with hyperglycemia Coding Level of Care Code Est Pt Level 4 (79502) Diagnoses Diabetes mellitus with hyperglycemia, without long-term current use of insulin E11.65 Dyslipidemia E78.5 Essential hypertension I10 Need for pneumococcal 20-valent conjugate vaccination Z23
[2023-05-09 13:26] VITALS: BP 120/70; PULSE 66; O2SAT 94; BMI 37.9
== END 2023-05-09 14:48 | disposition home or self-care (01) ==
LOC: HO.HMGC 13:15
PROVIDERS: PCP Internal Medicine; Visit Provider Internal Medicine
DX: E11.65 Type 2 diabetes mellitus with hyperglycemia (principal); E78.5 Hyperlipidemia, unspecified; I10 Essential (primary) hypertension; Z23 Encounter for immunization
CPT/HCPCS: 99214

== ENCOUNTER 2023-07-02 13:56 | Outpatient (AMB) | payer OTHER, SELFPAY ==
--- NOTE | 2023-07-02 14:11 | MHC.OFFVIS ---
Intake Vital Signs 07/02/23 14:21 Height 5 ft 2 in Weight 203 lb 2 oz BMI 37.1 BP 140/80 H Blood Pressure Location Lt brachial Position Sitting Intake Visit Reasons: 3 month follow up, breast exam Intake Note: Patient is seen in office for 3 month follow up visit, breast exam. Patient c/o: left breast pain under the nipple, redness and discoloration, right breast stabbing for aprox 3 weeks. Heel Breaster Required: No Banquet Chef: Banquet Chef Present Accompanied by: Family/Other Allergies shrimp Allergy (Mild, Verified 07/02/23 14:23) itch Medication List - Last Reconciled 07/02/23 by Quinn Matias MD albuterol sulfate 90 mcg/actuation (ProAir HFA) 2 puffs inhalation Q4-6H PRN amlodipine 2.5 mg PO DAILY anastrozole (Arimidex) 1 mg PO DAILY blood sugar diagnostic (Celergo Verio test strips) Test blood sugar twice a day blood-glucose meter (PinPayTouch Verio Flex Meter) As directed bupropion HCl 300 mg PO QAM cholecalciferol (vitamin D3) 50 mcg PO DAILY docusate sodium 100 mg PO BEDTIME duloxetine (Cymbalta) 20 mg PO BID duloxetine 60 mg PO QAM fluticasone propionate 110 mcg/actuation (Flovent HFA) 2 puffs PO BID lancets (OneTouch Delica Plus Lancet) Test blood sugar twice a day lorazepam 0.5 mg PO BID PRN losartan 100 mg PO DAILY metformin 500 mg PO BID metoprolol tartrate 25 mg PO BID pantoprazole 40 mg PO DAILY quetiapine 25 mg PO DAILY rosuvastatin 20 mg PO DAILY HPI HPI Comments History of Present Illness Details 73-year-old female patient found to have a 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 She underwent a left breast lumpectomy with LOCalizer localization, sentinel node biopsy on 11/05/2022. Pathology revealed a 1 cm, grade 2 invasive carcinoma as noted above. Two sentinel nodes were negative for metastatic disease. The margins were found to have positive margins at the skin and she was subsequently returned to the OR on 11/28/2022 for partial excision of the left breast skin, nipple-areolar complex. She reports feeling well today with no particular breast symptoms at this time. She was evaluated by Dr. North and started on Arimidex, which she is tolerating well. Oncotype testing revealed a score of 10. She was evaluated by radiation oncology at [facility] and decision made to forego radiation therapy. She reports less pinching but still some burning in the nipple and axilla. She is scheduled for a yearly mammogram on 11/01/2023. [facility] Medical History Diabetes mellitus with hyperglycemia, without long-term current use of insulin HX: breast cancer Depression Uses hearing aid Elevated cholesterol GERD (gastroesophageal reflux disease) Vaccination refused by patient Bronchial asthma Essential hypertension Surgical History History of lumpectomy of left breast (11/28/22) History of breast lump/mass excision History of lumpectomy Hx of colonoscopy History of esophagogastroduodenoscopy (EGD) History of cholecystectomy Family History Father Diabetes mellitus Essential hypertension CVA (cerebral vascular accident) Dyslipidemia Mother Dyslipidemia CVA (cerebral vascular accident) Mother Mental health disorder Brother Mental health disorder Paternal Aunt Breast cancer Ovarian cancer Maternal Aunt Breast cancer Ovarian cancer Social History Housing: Apartment Are you a primary animal caregiver to a significant other at home: No Do you presently have visiting nurse or other home services: No Alcohol intake: never Patient Tobacco Use Status: Never used Tobacco e-Cigarette/Vaping Use: Never Used Advance Directives Date on File: 11/08/22 Current occupational status: disabled Cognitive needs: No Hearing needs: Yes Vision needs: Yes Review of Systems Const All systems reviewed & are unremarkable except as noted in HPI and below Denies chills, Denies fever(s), Denies headache(s), Denies poor appetite and Denies weakness ENT Denies headache(s) Card Denies chest pain, Denies irregular heart rhythm, Denies palpitations and Denies dyspnea Resp Denies cough, Denies excessive phlegm production and Denies dyspnea GI Denies abdominal pain, Denies bloating, Denies change in bowel habits, Denies constipation, Denies heartburn, Denies diarrhea, Denies nausea and Denies vomiting Denies urinary frequency Musc Denies back pain, Denies muscle weakness and Denies numbness Skin/Breast Denies changing lesions and Denies unusual bruising Neuro Denies headache(s), Denies numbness, Denies paresthesias and Denies weakness Psych Denies anxiety and Denies depression Endo Denies palpitations Jaylen/Lymph Denies lymphadenopathy Physical Exam Vital Signs: Last Vital Signs BP 140/80 H 07/02/23 14:21 BMI result Body Mass Index 37.1 Const General: cooperative and no acute distress Nutritional Appearance: well nourished Orientation/consciousness: patient oriented x3 Limitations: no limitations HEENT Head: Yes normocephalic and Yes atraumatic Ears: hearing grossly normal bilaterally Chest Other: Left breast incision in the periareolar location is clean, dry, and intact. Incision is soft with no hematoma or seroma. Mild tenderness to deep palpation. No new palpable mass, skin change, nipple retraction, nipple discharge, or enlarged lymph nodes. Left axillary incision is clean, dry, and intact as well. Right breast: No skin change, nipple discharge, palpable mass, or enlarged lymph nodes. Mild tenderness near the nipple-areolar complex with no palpable changes. Chest/axillae images: 1. Incision left breast periareolar Resp Effort & Inspection: normal respiratory effort, no audible wheezes, no cough and no respiratory distress Cardio Jugular venous distension: no JVD GI Inspection: Yes normal to inspection Skin Other: Warm, dry, no rash Neuro General: patient oriented x3 Extrem General: Yes no clubbing, cyanosis or edema Assessment & Plan Assessment & Plan (1) Carcinoma of left breast in female, estrogen receptor positive: Code(s): C50.912 - Malignant neoplasm of unspecified site of left female breast; Z17.0 - Estrogen receptor positive status [ER+] Qualifiers: Breast location: lower inner quadrant of breast Qualified Code(s): C50.312 - Malignant neoplasm of lower-inner quadrant of left female breast; Z17.0 - Estrogen receptor positive status [ER+] Plan 73-year-old female patient diagnosed with infiltrating ductal carcinoma of left breast status post left breast lumpectomy with localizer and sentinel node biopsy on 11/05/2022. Pathology confirmed infiltrating ductal carcinoma with 0 of 2 nodes with metastatic disease. Skin margins were positive however therefore she was returned to the office on 11/28/2022 for wider excision including nipple-areolar complex. She is currently on Arimidex and complains mainly of hot flashes. She continues her follow-up with Dr. North. She was evaluated by radiation oncology at [facility] and the decision made to forego radiation therapy. Examination today revealed no suspicious findings in either breast. I recommended follow-up in 6 months for and mammogram, scheduled for 11/01/2023. She is welcome to call sooner for any new concerns. Orders: Orders MM diagnostic mammo BI 10/12/23 C50.912 - Malignant neoplasm of unspecified site of left female breast, Z17.0 - Estrogen receptor positive status [ER+] Coding Level of Care Code Est Pt Level 3 (72971) Diagnoses Carcinoma of lower-inner quadrant of left breast in female, estrogen receptor positive C50.312; Z17.0 Breast location: lower inner quadrant of breast
[2023-07-02 14:21] VITALS: BP 140/80; BMI 37.1
== END 2023-07-02 14:35 | disposition home or self-care (01) ==
PROVIDERS: PCP Internal Medicine; Visit Provider Surgery
DX: C50.312 Malignant neoplasm of lower-inner quadrant of left female breast (principal); Z17.0 Estrogen receptor positive status [ER+]
CPT/HCPCS: 99213

== ENCOUNTER → 2023-07-02 13:56 | Outpatient (BNVA) | payer OTHER, SELFPAY | PROVIDERS: PCP Internal Medicine; Visit Provider Surgery | DX: C50.312 Malignant neoplasm of lower-inner quadrant of left female breast (principal); Z79.811 Long term (current) use of aromatase inhibitors; Z17.0 Estrogen receptor positive status [ER+] | CPT/HCPCS: 99212 ==

== ENCOUNTER 2023-08-21 11:50 | Outpatient (REF) | payer OTHER, SELFPAY ==
[2023-08-21 14:10] LABS: Anion Gap 11 (12-20); Blood Urea Nitrogen 21 mg/dL (9-16); Calcium 9.8 mg/dL (8.4-10.2); Carbon Dioxide 24 mmol/L (22-29); Chloride 107 mmol/L (96-108); Estimated Glomerular Filt Rate > 60; Glucose Random 163 mg/dL (60-115); Potassium 4.2 mmol/L (3.3-5.1); Sodium 138 mmol/L (135-145)
[2023-08-21 14:12] LABS: Alanine Aminotransferase 18 U/L (0-31); Aspartate Amino Transferase 22 U/L (5-31)
[2023-08-21 14:14] LABS: Creatinine Urine 122.26 mg/dL; Protein/Creatinine Ratio, Ur 1.03 (<0.2); Total Protein Urine Random 126 mg/dL (<12)
== END 2023-08-21 11:51 | disposition home or self-care (01) ==
LOC: HO.HMGCLDS 11:50
PROVIDERS: PCP Internal Medicine; Visit Provider Internal Medicine Hypertension Specialist
DX: E78.5 Hyperlipidemia, unspecified (principal); R73.01 Impaired fasting glucose; I10 Essential (primary) hypertension; Z78.0 Asymptomatic menopausal state
CPT/HCPCS: 36415; 80048; 82570; 84156; 84450; 84460

== ENCOUNTER 2023-10-29 13:54 | Outpatient (AMB) | payer OTHER, SELFPAY ==
--- NOTE | 2023-10-29 13:57 | A.OFFVIS_ITS ---
Intake Vital Signs 3 10/29/23 14:05 Height 5 ft 2 in Weight 194 lb 4 oz BMI 35.5 BP 120/82 Blood Pressure Location Lt brachial Position Sitting Intake Visit Reasons: 3 month follow up, breast exam Intake Note: Patient is seen in office for 3 month follow up visit, breast exam. Patient c/o: denies any concerns at the time of visit mm sched:11/06/22 Manufacturing Lead Required: No Genetic Counselor: Genetic Counselor Present Accompanied by: Daughter Allergies shrimp Allergy (Mild, Verified 10/29/23 14:01) itch Medication List - Last Reconciled 10/29/23 by Quinn Matias MD albuterol sulfate 90 mcg/actuation (ProAir HFA) 2 puffs inhalation Q4-6H PRN amlodipine 2.5 mg PO DAILY anastrozole (Arimidex) 1 mg PO DAILY blood sugar diagnostic (Medprex Verio test strips) Test blood sugar twice a day blood-glucose meter (Medprex Verio Flex Meter) As directed bupropion HCl 300 mg PO QAM cholecalciferol (vitamin D3) 50 mcg PO DAILY docusate sodium 100 mg PO BEDTIME duloxetine (Cymbalta) 20 mg PO BID duloxetine 60 mg PO QAM fluticasone propionate 110 mcg/actuation (Flovent HFA) 2 puffs PO BID lancets (OutsmartTouch Delica Plus Lancet) Test blood sugar twice a day lorazepam 0.5 mg PO BID PRN losartan 100 mg PO DAILY metformin 500 mg PO BID metoprolol tartrate 25 mg PO BID pantoprazole 40 mg PO DAILY quetiapine 25 mg PO DAILY rosuvastatin 20 mg PO DAILY HPI HPI Comments 2 History of Present Illness0 Details 73-year-old female patient found to have a 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 She underwent a left breast lumpectomy with LOCalizer localization, sentinel node biopsy on 11/05/2022. Pathology revealed a 1 cm, grade 2 invasive carcinoma as noted above. Two sentinel nodes were negative for metastatic disease. The margins were found to have positive margins at the skin and she was subsequently returned to the OR on 11/28/2022 for partial excision of the left breast skin, nipple-areolar complex. She reports feeling well today with no particular breast symptoms at this time. She was evaluated by Dr. North and started on Arimidex, which she is tolerating well. Oncotype testing revealed a score of 10. She was evaluated by radiation oncology at [facility] and decision made to forego radiation therapy. She feels well and denies any new breast symptoms in either breast. She is scheduled for a yearly mammogram on 11/06/2023. [facility] Medical History Hearing loss Diabetes mellitus with hyperglycemia, without long-term current use of insulin HX: breast cancer Depression Uses hearing aid Elevated cholesterol GERD (gastroesophageal reflux disease) Vaccination refused by patient Bronchial asthma Essential hypertension Surgical History Hx of eye surgery History of lumpectomy of left breast (11/28/22) History of breast lump/mass excision History of lumpectomy Hx of colonoscopy History of esophagogastroduodenoscopy (EGD) History of cholecystectomy Family History Father Diabetes mellitus Essential hypertension CVA (cerebral vascular accident) Dyslipidemia Mother Dyslipidemia CVA (cerebral vascular accident) Mother Mental health disorder Brother Mental health disorder Paternal Aunt Breast cancer Ovarian cancer Maternal Aunt Breast cancer Ovarian cancer Social History Housing: Apartment Are you a primary respiratory care program director to a significant other at home: No Do you presently have visiting nurse or other home services: No Alcohol intake: never Patient Tobacco Use Status: Never used Tobacco e-Cigarette/Vaping Use: Never Used Advance Directives Date on File: 11/08/22 Current occupational status: disabled Cognitive needs: No Hearing needs: Yes Vision needs: Yes Review of Systems Const All systems reviewed & are unremarkable except as noted in HPI and below Denies chills, Denies fever(s), Denies headache(s), Denies poor appetite and Denies weakness ENT Denies headache(s) Card Denies chest pain, Denies irregular heart rhythm, Denies palpitations and Denies dyspnea Resp Denies cough, Denies excessive phlegm production and Denies dyspnea GI Denies abdominal pain, Denies bloating, Denies change in bowel habits, Denies constipation, Denies heartburn, Denies diarrhea, Denies nausea and Denies vomiting Denies urinary frequency Musc Denies back pain, Denies muscle weakness and Denies numbness Skin/Breast Denies changing lesions and Denies unusual bruising Neuro Denies headache(s), Denies numbness, Denies paresthesias and Denies weakness Psych Denies anxiety and Denies depression Endo Denies palpitations Jaylen/Lymph Denies lymphadenopathy Physical Exam Const General: cooperative and no acute distress Nutritional Appearance: well nourished Orientation/consciousness: patient oriented x3 Limitations: no limitations HEENT Head: Yes normocephalic and Yes atraumatic Ears: hearing grossly normal bilaterally Chest Other: Left breast incision in the periareolar location is clean, dry, and intact. Incision is soft with no hematoma or seroma. Mild tenderness to deep palpation. No new palpable mass, skin change, nipple retraction, nipple discharge, or enlarged lymph nodes. Left axillary incision is clean, dry, and intact as well. Right breast: No skin change, nipple discharge, palpable mass, or enlarged lymph nodes. Mild tenderness near the nipple-areolar complex with no palpable changes. Chest/axillae images: 2 1. Medial incision extending into nipple left breast 2. Lateral incision left breast Resp Effort & Inspection: normal respiratory effort, no audible wheezes, no cough and no respiratory distress Cardio Jugular venous distension: no JVD GI Inspection: Yes normal to inspection Skin Other: Warm, dry, no rash Neuro General: patient oriented x3 Extrem General: Yes no clubbing, cyanosis or edema Assessment & Plan Assessment & Plan (1) Carcinoma of left breast in female, estrogen receptor positive: Code(s): C50.912 - Malignant neoplasm of unspecified site of left female breast; Z17.0 - Estrogen receptor positive status [ER+] Qualifiers: Breast location: lower inner quadrant of breast Qualified Code(s): C 50.312 - Malignant neoplasm of lower-inner quadrant of left female breast; Z17.0 - Estrogen receptor positive status [ER+] Plan 73-year-old female patient diagnosed with infiltrating carcinoma with papillary and ductal features left breast status post left breast lumpectomy with localizer and sentinel node biopsy on 11/05/2022. Skin margins were positive however therefore she was returned on 11/28/2022 for wider excision including nipple-areolar complex. She is currently on Arimidex and tolerating this well without any particular side effects. She continues her follow-up with Dr. Nroth. She was evaluated by radiation oncology at [facility] and the decision made to forego radiation therapy. Examination today revealed no suspicious findings in either breast. I recommended follow-up in 6 months. Follow-up mammogram is scheduled for 11/06/2023. She is welcome to call sooner for any concerns. Coding Level of Care Code Est Pt Level 3 (64208) Diagnoses Carcinoma of lower-inner quadrant of left breast in female, estrogen receptor positive C50.312; Z17.0 Breast location: lower inner quadrant of breast
[2023-10-29 14:05] VITALS: BP 120/82; BMI 35.5
== END 2023-10-29 14:18 | disposition home or self-care (01) ==
PROVIDERS: PCP Internal Medicine; Visit Provider Surgery
DX: C50.312 Malignant neoplasm of lower-inner quadrant of left female breast (principal); Z17.0 Estrogen receptor positive status [ER+]
CPT/HCPCS: 99213

== ENCOUNTER → 2023-10-29 13:54 | Outpatient (BNVA) | payer OTHER, SELFPAY | PROVIDERS: PCP Internal Medicine; Visit Provider Surgery | DX: C50.312 Malignant neoplasm of lower-inner quadrant of left female breast (principal); Z17.0 Estrogen receptor positive status [ER+] | CPT/HCPCS: 99212 ==

== ENCOUNTER → 2023-11-06 15:45 | Outpatient (BNV) | payer OTHER, SELFPAY | PROVIDERS: PCP Internal Medicine; Visit Provider Radiology Diagnostic Radiology | DX: R92.1 Mammographic calcification found on diagnostic imaging of breast (principal) | CPT/HCPCS: 77066; G0279 ==

== ENCOUNTER 2023-11-06 15:46 | Outpatient (REF) | payer OTHER, SELFPAY ==
--- NOTE | ~2023-11-06 | MM_ITS ---
EXAMINATION: MM DIAGNOSTIC DIGITAL BREAST TOMOSYNTHESIS, BILATERAL CLINICAL INFORMATION: This patient in the left breast cancer diagnosis early 2022. The malignancy was subareolar and found to be an invasive ductal carcinoma with papillary features. COMPARISON: Mammography: This study is compared with prior exams dating back to 2018. TECHNIQUE: Digital breast tomosynthesis is performed in both the craniocaudal and mediolateral oblique views along with computer-aided detection (CAD). Synthesized 2D images are generated from the tomosynthesis. CC and lateral spot magnification of the surgical bed were obtained. FINDINGS: There are scattered areas of fibroglandular density (ACR BI-RADS breast composition Category b). There are no significant masses, abnormal calcifications, or other abnormalities. There are postsurgical changes in the subareolar region of the left breast. Few, benign calcifications are present in the right breast. These are unrelated to the previously diagnosed malignancy. MM/MM tomosynthesis diagnostic BI IMPRESSION: No mammographic signs of malignancy in either breast. Postsurgical changes of the left breast. ASSESSMENT: BI-RADS BI-RADS 2 - Benign Findings RECOMMENDATION: 1 year F/U Results were provided to the patient at time of visit by the technologist. This patient's information was entered into a reminder system with a target due date for their next mammogram.
== END 2023-11-06 15:47 | disposition home or self-care (01) ==
LOC: HO.MAMMO 15:46
PROVIDERS: PCP Internal Medicine; Visit Provider Surgery
DX: Z85.3 Personal history of malignant neoplasm of breast (principal); Z17.0 Estrogen receptor positive status [ER+]
CPT/HCPCS: 77062; 77066

== ENCOUNTER 2023-11-28 11:24 | Outpatient (AMB) | payer OTHER, SELFPAY ==
[2023-11-28 12:08] VITALS: BP 144/84; PULSE 65; O2SAT 96; BMI 35.9
--- NOTE | 2023-11-28 12:08 | A.OFFPC_ITS ---
Vital Signs 11/28/23 12:08 Height 5 ft 2 in Weight 196 lb 8 oz BMI 35.9 BP 144/84 H Blood Pressure Location Rt brachial Position Sitting Pulse 65 Pulse Source Pulse Oximeter Pulse Oximetry (%) 96 Oxygen Delivery Method Room Air Intake Visit Reasons: annual physical Intake Note: Pt is here today for her Annual Physical. Last Mammogram 11/06/23 Last Bone Density 03/14/23 Last colonoscopy 08/29/21 Allergies shrimp Allergy (Mild, Verified 11/28/23 12:36) itch Medication List - Last Reconciled 11/28/23 by Kathia Jenkins MD albuterol sulfate 90 mcg/actuation (ProAir HFA) 2 puffs inhalation Q4-6H PRN amlodipine 2.5 mg PO DAILY anastrozole (Arimidex) 1 mg PO DAILY blood sugar diagnostic ([email or web address] Verio test strips) Test blood sugar twice a day blood-glucose meter ([email or web address] Verio Flex Meter) As directed bupropion HCl 300 mg PO QAM cholecalciferol (vitamin D3) 50 mcg PO DAILY duloxetine (Cymbalta) 20 mg PO BID duloxetine 60 mg PO QAM fluticasone propionate 110 mcg/actuation (Flovent HFA) 2 puffs PO BID lancets (StrongLoopTouch Delica Plus Lancet) Test blood sugar twice a day lorazepam 0.5 mg PO BID PRN losartan 100 mg PO DAILY metformin 500 mg PO BID metoprolol tartrate 25 mg PO BID pantoprazole 40 mg PO DAILY quetiapine 25 mg PO DAILY rosuvastatin 20 mg PO DAILY Tobacco use date assessed: 11/28/23 Fall risk assessment: No Falls in past year Last assessed Fall Risk: 11/28/23 Dental Screening Dental Screen Date: 11/28/23 Did you have a dental visit in the last 12 months?: Yes Did you have a dental problem in the last 6 months where you did not have access to dental care?: No Was dental information given to patient?: Patient has dentist HPI annual physical HPI Details 73-year-old lady with history of breast cancer, has diabetes mellitus, hypertension, hyperlipidemia, bronchial asthma, and depression, here today for her physical exam. She is currently up-to-date with her screening mammogram, colonoscopy and bone density screening. She has been compliant with her diet, has lost some weight, feels well, with no new complaints at present time. [facility] Medical History (Updated 12/02/23 @ 00:59 by Kathia Jenkins MD) Carcinoma of left breast in female, estrogen receptor positive Hearing loss Diabetes mellitus with hyperglycemia, without long-term current use of insulin HX: breast cancer Depression Uses hearing aid Elevated cholesterol GERD (gastroesophageal reflux disease) Vaccination refused by patient Bronchial asthma Essential hypertension Surgical History (Updated 11/07/23 @ 14:15 by Kathryn North MD) Hx of eye surgery History of lumpectomy of left breast (11/28/22) History of breast lump/mass excision History of lumpectomy Hx of colonoscopy History of esophagogastroduodenoscopy (EGD) History of cholecystectomy Family History Father Diabetes mellitus Essential hypertension CVA (cerebral vascular accident) Dyslipidemia Mother Dyslipidemia CVA (cerebral vascular accident) Mother Mental health disorder Brother Mental health disorder Paternal Aunt Breast cancer Ovarian cancer Maternal Aunt Breast cancer Ovarian cancer Social History Housing: Apartment Are you a primary pet care associate to a significant other at home: No Do you presently have visiting nurse or other home services: No Alcohol intake: never Patient Tobacco Use Status: Never used Tobacco e-Cigarette/Vaping Use: Never Used Advance Directives Date on File: 11/08/22 service: No Current occupational status: disabled Cognitive needs: No Hearing needs: Yes Vision needs: Yes Questionnaire Thrive Questionnaire Date Thrive assessed: 10/02/22 AUDIT C Alcohol Use Questionnaire (AUDIT-C) 1. How often do you have a drink containing alcohol?: Never 3. How often do you have six or more drinks on one occasion?: Never Total Score: 0 Score Reviewed/Action Taken: Yes YESICA-7 AMB Questionnaire YESICA-7 Date YESICA - 7 assessed: 10/02/22 Source: Developed by Drs. Cb Dickson, Echo Smart, Arcenio Barajas and colleagues, with an educational jeffrey from [employer]. Review of Systems Const Denies chills, Denies fever(s), Denies headache(s), Denies weakness and Reports weight loss Eyes Reports no additional complaints ENT Denies headache(s) Card Denies chest pain, Denies irregular heart rhythm, Denies palpitations and Denies dyspnea Resp Denies cough, Denies excessive phlegm production and Denies dyspnea GI Denies abdominal pain, Denies bloating, Denies change in bowel habits, Denies heartburn and Denies nausea Denies urinary frequency Musc Denies back pain, Denies muscle weakness and Denies numbness Skin/Breast Details: Hyper pigmented lesion on elbow Denies unusual bruising Neuro Denies headache(s), Denies numbness, Denies paresthesias and Denies weakness Psych Reports no additional complaints Endo Denies palpitations Jaylen/Lymph Denies lymphadenopathy Aller/Immun Reports no additional complaints Physical exam (Primary Care) Vital Signs: Last Vital Signs Pulse 65 11/28/23 12:08 BP 144/84 H 11/28/23 12:08 Pulse Ox 96 11/28/23 12:08 Oxygen Delivery Method Room Air 11/28/23 12:08 BMI result Body Mass Index 35.9 Tobacco/Smoking Status: Tobacco use Status Tobacco use date assessed 11/28/23 11/28/23 12:13 Patient Tobacco Use Status Never used Tobacco 11/28/23 12:13 e-Cigarette/Vaping Use Never Used 11/28/23 12:13 Thrive Assessment: Date of Thrive Assessment Date Thrive assessed 10/02/22 11/28/23 12:13 Const General: comfortable, no acute distress and alert Orientation/consciousness: patient oriented x3 HENMT Other: wears hearing aids Head: Yes normocephalic Ears: external ears normal, TM's normal bilaterally and EAC's normal General nose exam: Normal external nose present and No nasal discharge present Face and sinus: Yes face symmetric Mouth: Normal oral and palatal mucosa present, tongue normal, oropharynx normal and moist mucous membranes Eyes General: appearance normal, both eyes and all related structures Conjunctivae: conjunctivae normal Sclerae: sclerae normal Pupils: Equal, round and reactive pupils present EOM: EOMs intact bilaterally Neck Neck: Yes full ROM, Yes no lymphadenopathy and Yes supple Resp Effort & Inspection: normal respiratory effort and able to speak in complete sentences Auscultation: clear to auscultation bilaterally Cardio Rate: regular rate Rhythm: regular rhythm Heart sounds: S1 normal heart sound present and S2 normal heart sound present GI Palpation (GI): Soft to palpation, nontender and no masses Auscultation: normal bowel sounds General: Yes no CVA tenderness Back/Spine/Pelvis Back: no CVA tenderness and No back tenderness Skin Other: Erythematous slightly raised lesion on external aspect of left elbow Neuro General: patient oriented x3, tone normal, moves all extremities, Normal light touch and pain sensation and no focal motor deficits Cranial nerves: Yes CN's II-XII intact bilaterally and Yes Equal, round and reactive pupils present Cognition (Neuro): normal cognition Gait exam (Neuro): Wide-based gait present Extrem General: Yes full ROM, Yes no joint enlargement, Yes no clubbing, cyanosis or edema and Yes no calf tenderness Psych Appearance: grossly normal and well kempt Mental Status: mental status grossly normal Speech and movement: Normal speech and movement present Affect: normal affect Attitude: cooperative Results Reviewed Results Reviewed: SPEC : [id number] JUAN M: 11/07/23 STATUS: COMP REQ : [id number] RECD: 11/07/[address]: Kathryn North MD COMP: 11/07/23 ENTERED: 11/07/[address] [facility] [address]: Kathia Jenkins MD ORDERED: CBC Auto Diff Test Result Flag Reference WBC 9.6 4.8-10.8 X10*3/uL RBC 4.62 4.20-5.50 X10*6/uL HGB 13.3 12.0-16.0 g/dl HCT 40.4 37.0-47.0 % MCV 87.4 80.0-98.0 fL MCH 28.8 27.0-33.0 pg MCHC 32.9 31.0-35.0 g/dl RDW 13.7 11.0-16.0 % PLT 275 160-400 X10*3/uL MPV 11.5 9.4-12.3 fL Neut Pct Auto 57.0 45-73 % ImGran Pct Auto 0.2 0.0-0.4 % Lymp Pct Auto 26.9 20-40 % [place] Pct Auto 10.0 2-11 % Eos Pct Auto 5.4 H 0-4 % Baso Pct Auto 0.5 0-2 % NRBC Pct Auto 0.0 0.0-0.2 /100WBC ANC Neut Abs # 5.5 2.0-8.3 x10*3/uL ImGran Abs Auto 0.02 0.00-0.03 X10*3/uL Lymph Abs Auto 2.6 1.2-4.9 X10*3/uL [place] Abs Auto 1.0 0.1-1.2 X10*3/uL Eos Abs Auto 0.5 H 0.0-0.4 X10*3/uL Baso Abs Auto 0.1 0.0-0.2 X10*3/uL NRBC Abs Auto 0.000 0.0-0.012 X10*3/uL SPEC : [id number] JUAN M: 11/07/23 STATUS: COMP REQ : [id number] RECD: 11/07/23 [facility] [address]: Kathryn North MD COMP: 11/07/23 ENTERED: 11/07/[address]: Kathia Jenkins MD ORDERED: CMP Test Result Flag Reference Sodium 138 135-145 mmol/L Potassium 4.6 3.3-5.1 mmol/L CL 106 96-108 mmol/L CO2 25 22-29 mmol/L Gap 12 12-20 BUN 21 H 9-16 mg/dL Creat 0.80 0.5-1.4 mg/dL Estimated CrCl 66.6 Provided height and weight: 157.48 cm, 88.5 kg. eGFR (calculated from the MDRD study equation) and eCrCl (calculated from the Cockcroft-Gault equation) are based on different parameters and may not yield comparable results. If eCrCl result is absurd, please check patient's height/weight. EGFR > 60 NOTE: For -Mex[place] individuals, multiply the result by 1.210. Chronic Kidney Disease: Estimated GFR < 60 mL/min/1.73m2 Severe Kidney Disease: Estimated GFR < 15 mL/min/1.73m2 Glucose, Random 164 H 60-115 mg/dL CA 10.2 8.4-10.2 mg/dL Total Bili 0.3 0.0-1.0 mg/dL AST (GOT) 21 5-31 U/L ALT (GPT) 22 0-31 U/L Protein, Total 7.9 6.5-8.0 g/dL Alb 3.8 3.5-5.0 g/dL Alk Phos 89 39-117 U/L Assessment and Plan Assessment & Plan (1) Diabetes mellitus with hyperglycemia, without long-term current use of insulin: Code(s): E11.65 - Type 2 diabetes mellitus with hyperglycemia Plan: Ordered a hemoglobin A1c, continue with current dose of metformin 500 mg 1 tablet twice a day with meals, reinforced importance of following recommended diet and staying active, reminded to get her diabetes eye exam done yearly, check feet for any lesions or calluses . Declined recommendation to get vaccinations done. (2) Essential hypertension: Code(s): I10 - Essential (primary) hypertension Plan: Blood pressure not at goal of less than 130/80. Will continue on losartan 100 mg per tablet to take 1 tablet daily, amlodipine 2.5 mg daily, in addition to metoprolol tartrate 25 mg 1 tablet twice a day. Reinforced importance of following a low sodium diet, getting regular exercise, and lowering stress levels. Return to clinic for follow-up in 3 months (3) Dyslipidemia: Code(s): E78.5 - Hyperlipidemia, unspecified Plan: Fasting lipid panel ordered. . Continue with rosuvastatin 20 mg daily , in addition to adherence to low-cholesterol diet and regular exercise, at least 30 minutes 3 to 4 times a week. Advised patient to make healthy food choices, eat more fruits, vegetables, whole grains, wild caught fish and low-fat dairy. Limit amount of meat and fried or fatty food products, as well as processed foods and fast foods. (4) Hearing loss: Code(s): H91.90 - Unspecified hearing loss, unspecified ear Plan: Currently wears hearing aid (5) Furunculosis of subcutaneous tissue: Code(s): L02.92 - Furuncle, unspecified Plan: Prescription sent for cephalexin 500 mg to take 1 every 12 hours for 10 days. (6) Bronchial asthma: Comment: well controlled Code(s): J45.909 - Unspecified asthma, uncomplicated Plan: Stable controlled on Flovent and uses albuterol inhaler as needed (7) Depression: Code(s): F32.A - Depression, unspecified Qualifiers: Depression Type: major depressive disorder Major depression recurrence: recurrent Active/Remission status: in partial remission Qualified Code(s): F3 3.41 - Major depressive disorder, recurrent, in partial remission Plan: Currently followed by psychiatry, stable and controlled on duloxetine, bupropion HCL 300 mg in the morning and quetiapine 25 mg daily, takes lorazepam as needed for acute anxiety attacks pain (8) HX: breast cancer: Code(s): Z85.3 - Personal history of malignant neoplasm of breast Plan: Currently on anastrozole, followed by Dr. North Orders: Orders Lipid Panel 11/28/23 E11.65 - Type 2 diabetes mellitus with hyperglycemia, E78.5 - Hyperlipidemia, unspecified, I10 - Essential (primary) hypertension, Z78.0 - Asymptomatic menopausal state Hemoglobin A1c 11/28/23 E11.65 - Type 2 diabetes mellitus with hyperglycemia, E78.5 - Hyperlipidemia, unspecified, I10 - Essential (primary) hypertension, Z78.0 - Asymptomatic menopausal state Microalbumin, Random (w Creat) 11/28/23 E11.65 - Type 2 diabetes mellitus with hyperglycemia, E78.5 - Hyperlipidemia, unspecified, I10 - Essential (primary) hypertension, Z78.0 - Asymptomatic menopausal state Vitamin D 25-OH Total 11/28/23 E11.65 - Type 2 diabetes mellitus with hyperglycemia, E78.5 - Hyperlipidemia, unspecified, I10 - Essential (primary) hypertension, Z78.0 - Asymptomatic menopausal state Medications: New cephalexin 500 mg PO Q12H 10 days 20 caps 0RF L02.92 - Furuncle, unspecified Coding Level of Care Code Est Pt Prev Care >65y([id number]) Diagnoses Diabetes mellitus with hyperglycemia, without long-term current use of insulin E11.65 Essential hypertension I10 Dyslipidemia E78.5 Hearing loss H91.90 Furunculosis of subcutaneous tissue L02.92 Bronchial asthma J45.909 Recurrent major depressive disorder, in partial remission F33.41 Depression Type: major depressive disorder Major depression recurrence: recurrent Active/Remission status: in partial remission HX: breast cancer Z85.3
== END 2023-11-28 13:01 | disposition home or self-care (01) ==
PROVIDERS: PCP Internal Medicine; Visit Provider Internal Medicine
DX: Z00.00 Encounter for general adult medical examination without abnormal findings (principal); E11.65 Type 2 diabetes mellitus with hyperglycemia; F33.41 Major depressive disorder, recurrent, in partial remission; I10 Essential (primary) hypertension; E78.5 Hyperlipidemia, unspecified; H91.90 Unspecified hearing loss, unspecified ear; L02.92 Furuncle, unspecified; J45.909 Unspecified asthma, uncomplicated; Z85.3 Personal history of malignant neoplasm of breast
CPT/HCPCS: 99397

== ENCOUNTER 2024-01-24 10:16 | Outpatient (REF) | payer OTHER, SELFPAY ==
[2024-01-24 13:57] LABS: Estimated Average Glucose 160 mg/dL; Hemoglobin A1c % 7.2 % (<6.0)
[2024-01-24 14:12] LABS: Appearance Urine Turbid; Color Urine Yellow; Glucose Urine UA Negative (Negative); Leukocyte Esterase Urine Negative (Negative); Nitrite Urine Negative (Negative); PH 5.5 (5.0-9.0); Specific Gravity - Urine 1.025 (1.005-1.025); UMIC TRIGGER UA YES; Urine Blood Negative (Negative); Urine Ketones Negative (Negative); Urine Protein 300 (3+) mg/dL (Neg-Trace)
[2024-01-24 14:17] LABS: Anion Gap 16 (12-20); Blood Urea Nitrogen 18 mg/dL (9-16); Calcium 10.2 mg/dL (8.4-10.2); Carbon Dioxide 22 mmol/L (22-29); Chloride 105 mmol/L (96-108); Estimated Glomerular Filt Rate > 60; Sodium 139 mmol/L (135-145)
[2024-01-24 14:21] LABS: Vitamin D 25-OH Total 38.5 ng/mL (>30)
[2024-01-24 14:22] LABS: Bacteria Urine None Seen (None Seen); Calcium Oxalate Crystals Urine Present; Hyaline Casts Urine 0-2 /LPF (0-2); RBC Urine 0-2 /HPF (0-2); WBC Urine 0-5 /HPF (0-5)
[2024-01-24 14:22] LABS: Cholesterol 131 mg/dL (<200); HDL Cholesterol 47 mg/dL (>40); LDL Cholesterol Calculated 65 mg/dL (<100); Triglycerides 96 mg/dL (<150)
[2024-01-24 14:39] LABS: Protein/Creatinine Ratio, Ur 1.13 (<0.2); Total Protein Urine Random 166 mg/dL (<12)
== END 2024-01-24 10:17 | disposition home or self-care (01) ==
LOC: HO.HMGCLDS 10:16
PROVIDERS: PCP Internal Medicine; Referring Provider Internal Medicine Nephrology; Visit Provider Internal Medicine
DX: N18.2 Chronic kidney disease, stage 2 (mild) (principal); E11.22 Type 2 diabetes mellitus with diabetic chronic kidney disease; I10 Essential (primary) hypertension; E78.5 Hyperlipidemia, unspecified; Z78.0 Asymptomatic menopausal state
CPT/HCPCS: 36415; 80051; 80061; 81001; 82043; 82306; 82310; 82565; 82570; 83036; 84156; 84520

== ENCOUNTER 2024-02-20 11:29 | Outpatient (REF) | payer OTHER, SELFPAY ==
[2024-02-20 14:37] LABS: Creatinine Urine 174.45 mg/dL; Protein/Creatinine Ratio, Ur 0.93 (<0.2); Total Protein Urine Random 162 mg/dL (<12)
[2024-02-20 14:52] LABS: Microalbum/Creatinine Ratio Ur 586.9 ug/mg cr (<30)
== END 2024-02-20 11:30 | disposition home or self-care (01) ==
LOC: HO.10HDLNP 11:29
PROVIDERS: Visit Provider Internal Medicine Nephrology
DX: R80.1 Persistent proteinuria, unspecified (principal); I12.9 Hypertensive chronic kidney disease with stage 1 through stage 4 chronic kidney disease, or unspecified chronic kidney disease; E11.22 Type 2 diabetes mellitus with diabetic chronic kidney disease; N18.9 Chronic kidney disease, unspecified
CPT/HCPCS: 82043; 82570; 84156

== ENCOUNTER 2024-03-03 12:57 | Outpatient (AMB) | payer OTHER, SELFPAY ==
[2024-03-03 13:11] VITALS: BP 112/78; PULSE 61; O2SAT 94; BMI 36.4
--- NOTE | 2024-03-03 13:11 | MHC.PC.OV ---
Vital Signs 03/03/24 13:11 Height 5 ft 2 in Weight 199 lb BMI 36.4 BP 112/78 Blood Pressure Location Rt brachial Position Sitting Pulse 61 Pulse Source Pulse Oximeter Pulse Oximetry (%) 94 Oxygen Delivery Method Room Air Intake Visit Reasons: 3 month follow up - see comments Intake Note: Pt is here today for 3 months follow up visit on labs and DM. Allergies shrimp Allergy (Mild, Verified 03/03/24 13:33) itch Medication List - Last Reconciled 03/03/24 by Kathia Jenkins MD albuterol sulfate 90 mcg/actuation (ProAir HFA) 2 puffs inhalation Q4-6H PRN amlodipine 2.5 mg PO DAILY anastrozole (Arimidex) 1 mg PO DAILY blood sugar diagnostic (Go Long Wireless Verio test strips) Test blood sugar twice a day blood-glucose meter (Go Long Wireless Verio Flex Meter) As directed bupropion HCl XL 300 mg PO QAM cholecalciferol (vitamin D3) 50 mcg PO DAILY duloxetine (Cymbalta) 20 mg PO BID duloxetine 60 mg PO QAM fluticasone propionate 110 mcg/actuation (Flovent HFA) 2 puffs PO BID lancets ([employer] Delica Plus Lancet) Test blood sugar twice a day lorazepam 0.5 mg PO BID PRN losartan 100 mg PO DAILY metformin 500 mg PO BID metoprolol tartrate 25 mg PO BID pantoprazole 40 mg PO DAILY quetiapine 25 mg PO DAILY rosuvastatin 20 mg PO DAILY Tobacco use date assessed: 03/03/24 Fall risk assessment: 1 Fall in past year Last assessed Fall Risk: 03/03/24 Dental Screening Dental Screen Date: 11/28/23 HPI 3 month follow up - see comments HPI Details 74 year-old lady with history of breast cancer, has diabetes mellitus, hypertension, hyperlipidemia, bronchial asthma, and depression, here today for her follow-up. She has been taking her medications as directed, tries to follow recommended diet and tries to get regular exercise. Had recent fasting labs done which showed lipids, electrolytes, renal function, vitamin-D within normal limits but diabetes control not at goal, with a hemoglobin A1c at 7.2% in an average glucose of 160 mg/dL over the last 3 months. 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, estrogen receptor positive Hearing loss Diabetes mellitus with hyperglycemia, without long-term current use of insulin HX: breast cancer Depression Uses hearing aid Elevated cholesterol GERD (gastroesophageal reflux disease) Vaccination refused by patient Bronchial asthma Essential hypertension Surgical History Hx of eye surgery History of lumpectomy of left breast (11/28/22) History of breast lump/mass excision History of lumpectomy Hx of colonoscopy History of esophagogastroduodenoscopy (EGD) History of cholecystectomy Family History Father Diabetes mellitus Essential hypertension CVA (cerebral vascular accident) Dyslipidemia Mother Dyslipidemia CVA (cerebral vascular accident) Mother Mental health disorder Brother Mental health disorder Paternal Aunt Breast cancer Ovarian cancer Maternal Aunt Breast cancer Ovarian cancer Social History Housing: Apartment Are you a primary care management associate to a significant other at home: No Do you presently have visiting nurse or other home services: No Alcohol intake: never Patient Tobacco Use Status: Never used Tobacco e-Cigarette/Vaping Use: Never Used Advance Directives Date on File: 11/08/22 service: No Current occupational status: disabled Cognitive needs: No Hearing needs: Yes Vision needs: Yes Questionnaire PHQ-9 Over the last 2 weeks, how often have you been bothered by any of the following problems? 1. Little interest or pleasure in doing things: not at all 2. Feeling down, depressed, or hopeless: not at all 3. Trouble falling or staying asleep, or sleeping too much: not at all 4. Feeling tired or having little energy: several days 5. Poor appetite or overeating: not at all 6. Feeling bad about yourself - or that you are a failure or have let yourself or your family down: not at all 7. Trouble concentrating on things, such as reading the newspaper or watching television: not at all 8. Moving or speaking so slowly that other people could have noticed. Or the opposite - being so fidgety or restless that you have been moving around a lot more than usual: not at all 9. Thoughts that you would be better off or of hurting yourself in some way: not at all Total score: 1 Depression Screening Interpretation: Negative Depression Screening Done: Yes 84596 - PHQ-9 Billing: Yes Source: Developed by Drs. Cb Dickson, Arcenio Humphreys and colleagues, with an educational jeffrey from [employer]. Thrive Questionnaire Date Thrive assessed: 03/03/24 I am a: Patient What is your living situation today?: I have a steady place to live Within the past 12 months, did the food you bought not last and you didn't have the money to get more?: Never true Within the past 12 months, did you worry whether your food would run out before you got money to buy more?: Never true Do you have trouble paying for medicines?: No Do you have trouble getting transportation to medical appointments?: No Do you have trouble paying your heating and electricity bill?: No Do you have trouble taking care of your child, family member or friend?: No Do you have trouble with day-to-day activities such as bathing, preparing meals, shopping, managing finances, etc.?: No Are you currently unemployed and looking for a job?: No Are you interested in more education?: No Please select the resources that you would like help with: None THRIVE Score: 0 AUDIT C Alcohol Use Questionnaire (AUDIT-C) 1. How often do you have a drink containing alcohol?: Never Total Score: 0 YESICA-7 AMB Questionnaire YESICA-7 Date YESICA - 7 assessed: 03/03/24 Feeling nervous, anxious, or on edge: 0 = Not at all Not being able to stop or control worryin = Not at all Worrying too much about different things: 0 = Not at all Trouble relaxin = Not at all Being so restless that it is hard to sit still: 0 = Not at all Becoming easily annoyed or irritable: 0 = Not at all Feeling afraid as if something awful might happen: 0 = Not at all Total YESICA-7 score (0-4 normal; 5-9 mild; 10-14 moderate; 15-21 severe): 0 Source: Developed by Echo Montgomery Kurt Kroenke and colleagues, with an educational jeffrey from [employer]. YESICA-7 Assessment Billing YESICA-7 Assessment Tool: YESICA-7 Assessment 68679 Review of Systems Const Denies chills, Denies fever(s), Denies headache(s), Denies weakness and Reports weight loss Eyes Reports no additional complaints ENT Reports dizziness (Intermittent) and Denies headache(s) Card Denies chest pain, Denies irregular heart rhythm, Denies palpitations and Denies dyspnea Resp Denies cough, Denies excessive phlegm production and Denies dyspnea GI Details: Complaining of intermittent epigastric pain, with radiation to mid back not accompanied by any nausea, no fever or vomiting. Reports abdominal pain, Denies bloating, Denies change in bowel habits, Denies heartburn and Denies nausea Denies urinary frequency Musc Denies back pain, Denies muscle weakness and Denies numbness Skin/Breast Denies unusual bruising Neuro Reports dizziness (Intermittent), Denies headache(s), Denies numbness, Denies paresthesias and Denies weakness Psych Reports no additional complaints Endo Denies palpitations Jaylen/Lymph Denies lymphadenopathy Aller/Immun Reports no additional complaints Physical exam (Primary Care) Vital Signs: Last Vital Signs Pulse 61 03/03/24 13:11 BP 112/78 03/03/24 13:11 Pulse Ox 94 03/03/24 13:11 Oxygen Delivery Method Room Air 03/03/24 13:11 BMI result Body Mass Index 36.4 Tobacco/Smoking Status: Tobacco use Status Tobacco use date assessed 03/03/24 03/03/24 13:19 Patient Tobacco Use Status Never used Tobacco 03/03/24 13:11 e-Cigarette/Vaping Use Never Used 03/03/24 13:11 PHQ-9: PHQ-9 Score PHQ-9: Total score 2 03/06/24 01:32 Depression Screening Interpretation: Negative Thrive Assessment: Date of Thrive Assessment Date Thrive assessed 03/03/24 03/03/24 13:29 Const General: comfortable, no acute distress and alert Orientation/consciousness: patient oriented x3 HENMT Other: wears hearing aids Head: Yes normocephalic Ears: external ears normal, TM's normal bilaterally and EAC's normal General nose exam: Normal external nose present and No nasal discharge present Face and sinus: Yes face symmetric Mouth: Normal oral and palatal mucosa present, tongue normal, oropharynx normal and moist mucous membranes Eyes General: appearance normal, both eyes and all related structures Conjunctivae: conjunctivae normal Sclerae: sclerae normal Pupils: Equal, round and reactive pupils present EOM: EOMs intact bilaterally Neck Neck: Yes full ROM, Yes no lymphadenopathy and Yes supple Resp Effort & Inspection: normal respiratory effort and able to speak in complete sentences Auscultation: clear to auscultation bilaterally Cardio Rate: regular rate Rhythm: regular rhythm Heart sounds: S1 normal heart sound present and S2 normal heart sound present GI Palpation (GI): Soft to palpation, nontender and no masses Auscultation: normal bowel sounds General: Yes no CVA tenderness Back/Spine/Pelvis Back: no CVA tenderness and No back tenderness Neuro General: patient oriented x3, tone normal, moves all extremities, Normal light touch and pain sensation and no focal motor deficits Cranial nerves: Yes CN's II-XII intact bilaterally and Yes Equal, round and reactive pupils present Cognition (Neuro): normal cognition Gait exam (Neuro): Wide-based gait present Extrem General: Yes full ROM, Yes no joint enlargement, Yes no clubbing, cyanosis or edema and Yes no calf tenderness Psych Appearance: grossly normal and well kempt Mental Status: mental status grossly normal Speech and movement: Normal speech and movement present Affect: normal affect Attitude: cooperative Results Reviewed Results Reviewed: Name: Jessica Hicks Age/Sex: 73/F : 1950 Unit#: [id number] Attend Dr: Kathia Jenkins MD Re01/24/24 Status: DEP REF Location: [facility] Disch: SPEC : [id number] JUAN M: 01/24/24 STATUS: COMP REQ : [id number] RECD: 01/24/24-[address]: Naga Henderson MD COMP: 01/24/24-1417 ENTERED: 01/24/24-[address]: Kathia Jenkins MD ORDERED: Lytes, BUN, Creat, CA Test Result Flag Reference Sodium 139 135-145 mmol/L Potassium 4.0 3.3-5.1 mmol/L CL 105 96-108 mmol/L CO2 22 22-29 mmol/L Name: Jessica Hicks Age/Sex: 73/F : 1950 Unit#: [id number] Attend Dr: Kathia Jenkins MD Re01/24/24 Status: DEP REF Location: [facility] Disch: SPEC : [id number] JUAN M: 01/24/24 STATUS: COMP REQ : [id number] RECD: 01/24/[address]: Kathia Jenkins MD COMP: 01/24/24 ENTERED: 01/24/[address]: ORDERED: Hgb A1c Test Result Flag Reference A1c % 7.2 H <6.0 % Hemoglobin A1C Reference Range Adults: 4.8 - 6.0 % Non diabetic: < 6.0 % Goal: < 7.0 % Additional Action Suggested: > 8.0 % Note: Hemoglobin A1c results are invalid for patients with abnormal amounts of HbF. Blood transfusions may impact the HbA1c concentration in the patient sample. Est. Avg. Gluc 160 mg/dL eAG = Estimated average glucose which is %A1C expressed as average glucose, using the formula of the J2T-Kbhctan Average Glucose study (ADAG), Diabetes Care, Vol.31,#8, 2007 Name: Jessica Hicks Age/Sex: 73/F : 1950 Unit#: [id number] Attend Dr: Kathia Jenkins MD Re01/24/24 Status: DEP REF Location: [facility] Disch: SPEC : [id number] JUAN M: 01/24/24 STATUS: COMP REQ : [id number] RECD: 01/24/[address]: Kathia Jenkins MD COMP: 01/24/241 ENTERED: 01/24/[address]: ORDERED: Lipid Panel, Vitamin D 25-OH Test Result Flag Reference Triglyceride 96 <150 mg/dL Desirable Triglyceride: less than 150 mg/dL Borderline High Triglyceride 150-199 mg/dL High Triglyceride: 200-499 mg/dL Very High Triglyceride: greater than or equal to 5OO mg/dL Cholesterol 131 <200 mg/dL Desirable Cholesterol: less than 200 mg/dL Borderline High Cholesterol: 200-239 mg/dL High Cholesterol: greater than 239 mg/dL LDL Calculated 65 <100 mg/dL Desirable LDL: less than 100 mg/dL Near Optimal/Above Optimal LDL: 110-129 mg/dL Borderline High LDL: 130-159 mg/dL High LDL: 160-189 mg/dL Very High LDL: greater than or equal to 190 mg/dL HDL 47 >40 mg/dL Desirable HDL: greater than 40 mg/dL Note: This HDL assay may give artificially low results in patients with liver disease. Vit D 25-OH Tot 38.5 >30 ng/mL Health Based Reference Values* < 20 ng/mL Deficient 20-30 ng/mL Insufficient > 30 ng/mL Sufficient Gap 16 12-20 BUN 18 H 9-16 mg/dL Creat 0.74 0.5-1.4 mg/dL EGFR > 60 NOTE: For -Marshallese individuals, multiply the result by 1.210. Chronic Kidney Disease: Estimated GFR < 60 mL/min/1.73m2 Severe Kidney Disease: Estimated GFR < 15 mL/min/1.73m2 CA 10.2 8.4-10.2 mg/dL Assessment and Plan Assessment & Plan (1) Diabetes mellitus with hyperglycemia, without long-term current use of insulin: Code(s): E11.65 - Type 2 diabetes mellitus with hyperglycemia Plan: Recent lab results reviewed with patient, with sugar and hemoglobin A1c higher than last check and not at goal of less than 6.5% and below. Will continue on metformin 500 mg per tablet taken 1 tablet twice a day.. Compliance with diet and regular exercise again stressed. Blood pressure goal is less than 130/80, goal LDL is less than 100 and goal hemoglobin A1c is less than 7% (2) Dyslipidemia: Code(s): E78.5 - Hyperlipidemia, unspecified Plan: Continue rosuvastatin 20 stay (3) Depression: Code(s): F32.A - Depression, unspecified Qualifiers: Active/Remission status: in partial remission Depression Type: major depressive disorder Major depression recurrence: recurrent Qualified Code(s): F33.41 - Major depressive disorder, recurrent, in partial remission Plan: Currently on quetiapine, duloxetine, and lorazepam taken as needed for acute anxiety attacks (4) Essential hypertension: Code(s): I10 - Essential (primary) hypertension Plan: Continue losartan 100 mg 1 tablet and amlodipine 2.5 mg once a (5) Bronchial asthma: Comment: well controlled Code(s): J45.909 - Unspecified asthma, uncomplicated Plan: Has albuterol inhaler to use as needed for episodes of bronchospasm and wheezing, (6) Benign paroxysmal positional vertigo: Code(s): H81.10 - Benign paroxysmal vertigo, unspecified ear Plan: Prescription sent for meclizine to take 25 mg per tablet 1 tablet once a day as needed for intermittent episodes of lightheadedness. referred to physical therapy/vestibular rehab for evaluation of possible vertigo (7) Generalized weakness: Code(s): R53.1 - Weakness Plan: Will check TSH and free T4, comprehensive metabolic panel and CBC, (8) Epigastric pain: Code(s): R10.13 - Epigastric pain Plan: Will check amylase, lipase. Continue pantoprazole 25 mg daily, sees a bland diet for an Orders: Orders Lipase 03/04/24 R53.1 - Weakness, H81.10 - Benign paroxysmal vertigo, unspecified ear, R10.13 - Epigastric pain TSH reflex Free T4 03/04/24 R53.1 - Weakness, H81.10 - Benign paroxysmal vertigo, unspecified ear, R10.13 - Epigastric pain Comprehensive Met. Panel 03/04/24 R53.1 - Weakness, H81.10 - Benign paroxysmal vertigo, unspecified ear, R10.13 - Epigastric pain Complete Blood Count Auto Diff 03/04/24 R53.1 - Weakness, H81.10 - Benign paroxysmal vertigo, unspecified ear, R10.13 - Epigastric pain Amylase 03/04/24 R53.1 - Weakness, H81.10 - Benign paroxysmal vertigo, unspecified ear, R10.13 - Epigastric pain PT Evaluation and Treatment 03/03/24 H81.10 - Benign paroxysmal vertigo, unspecified ear Medications: New meclizine 25 mg PO DAILY PRN 30 tabs 0RF motion sickness Coding Level of Care Code Est Pt Level 4 (11903) Complex EM visit Add On G2211 Diagnoses Diabetes mellitus with hyperglycemia, without long-term current use of insulin E11.65 Dyslipidemia E78.5 Recurrent major depressive disorder, in partial remission F33.41 Active/Remission status: in partial remission Depression Type: major depressive disorder Major depression recurrence: recurrent Essential hypertension I10 Bronchial asthma J45.909 Benign paroxysmal positional vertigo H81.10 Generalized weakness R53.1 Epigastric pain R10.13 Additional Codes YESICA-7 Assessment Billing - YESICA-7 Assessment Tool: YESICA-7 Assessment 24870 ([id number])
== END 2024-03-03 13:55 | disposition home or self-care (01) ==
PROVIDERS: PCP Internal Medicine; Visit Provider Internal Medicine
DX: E11.65 Type 2 diabetes mellitus with hyperglycemia (principal); F33.41 Major depressive disorder, recurrent, in partial remission; E78.5 Hyperlipidemia, unspecified; I10 Essential (primary) hypertension; J45.909 Unspecified asthma, uncomplicated; H81.13 Benign paroxysmal vertigo, bilateral; R53.1 Weakness; R10.13 Epigastric pain
CPT/HCPCS: 99214; G2211

== ENCOUNTER 2024-03-04 09:56 | Outpatient (REF) | payer OTHER, SELFPAY ==
[2024-03-04 13:23] LABS: MANUAL DIFF FLAG NO
[2024-03-04 13:39] LABS: Basophils Absolute Auto 0.1 X10*3/uL (0.0-0.2); Basophils Percent Auto 0.6 % (0-2); Eosinophils Absolute Auto 0.4 X10*3/uL (0.0-0.4); Eosinophils Percent Auto 4.8 % (0-4); Hematocrit 42.6 % (37.0-47.0); Hemoglobin 13.9 g/dl (12.0-16.0); Imm Gran Abs Auto 0.02 X10*3/uL (0.00-0.03); Imm Gran Pct Auto 0.2 % (0.0-0.4); Lymphocytes Percent Auto 25.1 % (20-40); Mean Corpuscular HGB Conc 32.6 g/dl (31.0-35.0); Mean Corpuscular Hemoglobin 28.3 pg (27.0-33.0); Mean Corpuscular Volume 86.6 fL (80.0-98.0); Mean Platelet Volume 11.9 fL (9.4-12.3); Monocytes Absolute Auto 0.7 X10*3/uL (0.1-1.2); Neutrophils Absolute Auto 4.9 x10*3/uL (2.0-8.3); Neutrophils Percent Auto 60.3 % (45-73); Platelet Count 276 X10*3/uL (160-400); Red Blood Count 4.92 X10*6/uL (4.20-5.50); White Blood Count 8.1 X10*3/uL (4.8-10.8)
[2024-03-04 13:56] LABS: Alanine Aminotransferase 22 U/L (0-31); Alkaline Phosphatase 93 U/L (39-117); Amylase 88 U/L (28-100); Anion Gap 14 (12-20); Aspartate Amino Transferase 26 U/L (5-31); Bilirubin Total 0.4 mg/dL (0.0-1.0); Blood Urea Nitrogen 17 mg/dL (9-16); Calcium 10.2 mg/dL (8.4-10.2); Carbon Dioxide 22 mmol/L (22-29); Chloride 107 mmol/L (96-108); Estimated Glomerular Filt Rate > 60; Glucose Random 151 mg/dL (60-115); Lipase 31 U/L (8-78); Potassium 3.8 mmol/L (3.3-5.1); Sodium 139 mmol/L (135-145)
[2024-03-04 14:14] LABS: TSH reflex Free T4 2.09 uIU/mL (0.32-4.0)
== END 2024-03-04 09:57 | disposition home or self-care (01) ==
LOC: HO.HMGCLDS 09:56
PROVIDERS: PCP Internal Medicine; Visit Provider Internal Medicine
DX: R53.1 Weakness (principal); H81.10 Benign paroxysmal vertigo, unspecified ear; R10.13 Epigastric pain
CPT/HCPCS: 36415; 80053; 82150; 83690; 84443; 85025

== ENCOUNTER 2024-04-28 13:11 | Outpatient (AMB) | payer OTHER, SELFPAY ==
--- NOTE | 2024-04-28 13:13 | A.OFFVIS_ITS ---
Vital Signs 04/28/24 13:23 Height 5 ft 2 in Weight 196 lb 8 oz BMI 35.9 BP 191/92 H Blood Pressure Location Lt brachial Position Sitting Pulse 62 Intake Visit Reasons: 6 month follow up, breast exam Intake Note: Patient is seen in office for 6 month follow up visit, breast exam. Pt c/o: left breast feels a lump, unsure if its scar tissue, sometimes painful under the left breast mm:11/06/23 Knitted Cloth Examiner Required: No Supervisor Purification: Supervisor Purification Present Accompanied by: Self / Same As Patient Allergies shrimp Allergy (Mild, Verified 04/28/24 13:23) itch HPI Comments Details: 74-year-old female patient found to have a left breast T1 N0 MX invasive carcinoma with solid papillary, ductal and lobular features, 1 cm, grade 2, ER/ID positive, HER2 Radha negative, high proliferation. She underwent a left breast lumpectomy with LOCalizer localization, sentinel node biopsy on 11/05/2022. Pathology revealed a 1 cm, grade 2 invasive carcinoma as noted above. Two sentinel nodes were negative for metastatic disease. The margins were found to have positive margins at the skin and she was subsequently returned to the OR on 11/28/2022 for partial excision of the left breast skin, nipple-areolar complex. She reports feeling well today with no particular breast symptoms at this time. She was evaluated by Dr. North and started on Arimidex, which she is tolerating well. Oncotype testing revealed a score of 10. She was evaluated by radiation oncology at [facility] and decision made to forego radiation therapy. Yearly mammogram performed on 11/06/2023 revealed no mammographic evidence of malignancy (BI-RADS 2). [facility] Medical History Carcinoma of left breast in female, estrogen receptor positive Hearing loss Diabetes mellitus with hyperglycemia, without long-term current use of insulin HX: breast cancer Depression Uses hearing aid Elevated cholesterol GERD (gastroesophageal reflux disease) Vaccination refused by patient Bronchial asthma Essential hypertension Surgical History Hx of eye surgery History of lumpectomy of left breast (11/28/22) History of breast lump/mass excision History of lumpectomy Hx of colonoscopy History of esophagogastroduodenoscopy (EGD) History of cholecystectomy Family History Father Diabetes mellitus Essential hypertension CVA (cerebral vascular accident) Dyslipidemia Mother Dyslipidemia CVA (cerebral vascular accident) Mother Mental health disorder Brother Mental health disorder Paternal Aunt Breast cancer Ovarian cancer Maternal Aunt Breast cancer Ovarian cancer Social History Housing: Apartment Are you a primary insurance healthcare representative to a significant other at home: No Do you presently have visiting nurse or other home services: No Alcohol intake: never Patient Tobacco Use Status: Never used Tobacco e-Cigarette/Vaping Use: Never Used Advance Directives Date on File: 11/08/22 service: No Current occupational status: disabled Cognitive needs: No Hearing needs: Yes Vision needs: Yes Review of Systems Const All systems reviewed & are unremarkable except as noted in HPI and below Denies chills, Denies fever(s), Denies headache(s), Denies poor appetite and Denies weakness ENT Denies headache(s) Card Denies chest pain, Denies irregular heart rhythm, Denies palpitations and Denies dyspnea Resp Denies cough, Denies excessive phlegm production and Denies dyspnea GI Denies abdominal pain, Denies bloating, Denies change in bowel habits, Denies constipation, Denies heartburn, Denies diarrhea, Denies nausea and Denies vomiting Denies urinary frequency Musc Denies back pain, Denies muscle weakness and Denies numbness Skin/Breast Denies changing lesions and Denies unusual bruising Neuro Denies headache(s), Denies numbness, Denies paresthesias and Denies weakness Psych Denies anxiety and Denies depression Endo Denies palpitations Jaylen/Lymph Denies lymphadenopathy Physical Exam Const General: cooperative and no acute distress Nutritional Appearance: well nourished Orientation/consciousness: patient oriented x3 Limitations: no limitations HEENT Head: Yes normocephalic and Yes atraumatic Ears: hearing grossly normal bilaterally Chest Other: Left breast incision in the periareolar location is clean, dry, and intact. Incision is soft with no hematoma or seroma. Mild tenderness to deep palpation. No new palpable mass, skin change, nipple retraction, nipple discharge, or enlarged lymph nodes. Left axillary incision is clean, dry, and intact as well. Right breast: No skin change, nipple discharge, palpable mass, or enlarged lymph nodes. Mild tenderness near the nipple-areolar complex with no palpable changes. Resp Effort & Inspection: normal respiratory effort, no audible wheezes, no cough and no respiratory distress Cardio Jugular venous distension: no JVD GI Inspection: Yes normal to inspection Skin Other: Warm, dry, no rash Neuro Other: Mobility Assessment: 1. 3 meter assessment time (seconds) 7 2. Gait observations: Normal balance and gait General: patient oriented x3 Extrem General: Yes no clubbing, cyanosis or edema Assessment & Plan Assessment & Plan (1) Carcinoma of left breast in female, estrogen receptor positive: Code(s): C50.912 - Malignant neoplasm of unspecified site of left female breast; Z17.0 - Estrogen receptor positive status [ER+] Category: Medical Qualifiers: Breast location: lower inner quadrant of breast Qualified Code(s): C50.312 - Malignant neoplasm of lower-inner quadrant of left female breast; Z17.0 - Estrogen receptor positive status [ER+] Plan 74-year-old female patient diagnosed with infiltrating carcinoma with papillary and ductal features left breast status post left breast lumpectomy with localizer and sentinel node biopsy on 11/05/2022. Skin margins were positive therefore she returned on 11/28/2022 for wider excision including nipple-areolar complex. She is currently on Arimidex and tolerating this well without any particular side effects. She continues her follow-up with Dr. North. She was evaluated by radiation oncology at [facility] and the decision made to forego radiation therapy. Her most recent mammogram on 11/06/2023 revealed no mammographic evidence of malignancy (BI-RADS 2). Examination today revealed no suspicious findings in either breast. I recommended follow-up in 6 months. Coding Level of Care Code Est Pt Level 3 (19559) Diagnoses Carcinoma of lower-inner quadrant of left breast in female, estrogen receptor positive C50.312; Z17.0 Breast location: lower inner quadrant of breast
[2024-04-28 13:23] VITALS: BP 191/92; PULSE 62; BMI 35.9
== END 2024-04-28 13:32 | disposition home or self-care (01) ==
PROVIDERS: PCP Internal Medicine; Visit Provider Surgery
DX: C50.312 Malignant neoplasm of lower-inner quadrant of left female breast (principal); Z17.0 Estrogen receptor positive status [ER+]
CPT/HCPCS: 99213

== ENCOUNTER → 2024-04-28 13:11 | Outpatient (BNVA) | payer OTHER, SELFPAY | PROVIDERS: PCP Internal Medicine; Visit Provider Surgery | DX: C50.312 Malignant neoplasm of lower-inner quadrant of left female breast (principal); Z17.0 Estrogen receptor positive status [ER+] | CPT/HCPCS: 99212 ==

== ENCOUNTER 2024-05-19 16:08 | Outpatient (AMB) | payer OTHER, SELFPAY ==
--- NOTE | 2024-05-19 16:10 | MHC.OFFWIV ---
Intake Vital Signs 05/19/24 16:16 Weight 200 lb BP 130/98 H Blood Pressure Location Lt brachial Position Sitting Pulse 95 Pulse Source Pulse Oximeter Intake Visit Reasons: EP- RT index finger swollen in pain Intake Note: Patient here for finger pain that has been present for about two weeks Patient Tobacco Use Status: Never used Tobacco Accompanied by: Daughter Is last menstrual period known: No Post menopausal: No Patient : No Allergies shrimp Allergy (Mild, Verified 05/19/24 16:15) itch Do you need a note to return to daycare/school/sports/work: No HPI HPI Comments History of Present Illness Details Patient is a 74-year-old female complaining of right 2nd finger pain that radiates up her arm and left 4th finger pain which also radiates up her arm. She states she does have fibromyalgia and chronic kidney disease. She states the pain has been present for the last few weeks. She has not taken anything to make it better. She denies any trauma to the fingers. She admits to reduced range of motion because of the pain. She describes the pain as a pressure- like her fingers going to explode . [facility] Medical History Carcinoma of left breast in female, estrogen receptor positive Hearing loss Diabetes mellitus with hyperglycemia, without long-term current use of insulin HX: breast cancer Depression Uses hearing aid Elevated cholesterol GERD (gastroesophageal reflux disease) Vaccination refused by patient Bronchial asthma Essential hypertension Surgical History Hx of eye surgery History of lumpectomy of left breast (11/28/22) History of breast lump/mass excision History of lumpectomy Hx of colonoscopy History of esophagogastroduodenoscopy (EGD) History of cholecystectomy Family History Father Diabetes mellitus Essential hypertension CVA (cerebral vascular accident) Dyslipidemia Mother Dyslipidemia CVA (cerebral vascular accident) Mother Mental health disorder Brother Mental health disorder Paternal Aunt Breast cancer Ovarian cancer Maternal Aunt Breast cancer Ovarian cancer Social History Housing: Apartment Are you a primary critical care nurse practitioner to a significant other at home: No Do you presently have visiting nurse or other home services: No Alcohol intake: never Patient Tobacco Use Status: Never used Tobacco e-Cigarette/Vaping Use: Never Used Advance Directives Date on File: 11/08/22 Patient : No service: No Current occupational status: disabled Cognitive needs: No Hearing needs: Yes Vision needs: Yes Review of Systems Const All systems reviewed & are unremarkable except as noted in HPI and below Physical Exam Vital Signs: Last Vital Signs Pulse 95 05/19/24 16:16 BP 130/98 H 05/19/24 16:16 Const General: cooperative, healthy appearing, comfortable, no acute distress and well developed Orientation/consciousness: patient oriented x3 Limitations: no limitations HEENT Head: Yes normal to inspection Ears: hearing grossly normal bilaterally General nose exam: Normal external nose present Face and sinus: Yes normal facial exam Eyes General: appearance normal, both eyes and all related structures Neck Neck: Yes normal visual inspection and Yes full ROM Resp Effort & Inspection: normal respiratory effort and able to speak in complete sentences Skin General skin exam: no rashes or lesions noted Neuro General: patient oriented x3 Extrem Other: Patient unable to perform the Phalen's test, negative Tinel's. Reduced range of motion of right hand 2nd digit and left hand 4th digit secondary to pain. No ecchymosis, lacerations; warmth, edema or signs of infection noted. NVI Assessment & Plan Assessment & Plan (1) Finger sprain: Code(s): S63.619A - Unspecified sprain of unspecified finger, initial encounter Qualifiers: Encounter type: initial encounter Finger: ring finger Sprain of finger site: unspecified site Laterality: left Qualified Code(s): S63.615A - Unspecified sprain of left ring finger, initial encounter Plan: 2 fingers, left hand 4th digit, right hand 2nd digit. Trae-taped fingers for the patient and recommended she rest them. She can not take ibuprofen because of her CKD. Recommended she follow up with her PCP in a couple of weeks if they are not feeling better after rest Plan See above Coding Level of Care Code Est Pt Level 3 (45553) Diagnoses Sprain of left ring finger, unspecified site of digit, initial encounter S63.615A Encounter type: initial encounter Finger: ring finger Sprain of finger site: unspecified site Laterality: left
[2024-05-19 16:16] VITALS: BP 130/98; PULSE 95
== END 2024-05-19 16:37 | disposition home or self-care (01) ==
PROVIDERS: PCP Internal Medicine; Visit Provider Physician Assistant
DX: S63.615A Unspecified sprain of left ring finger, initial encounter (principal)
CPT/HCPCS: 99213

== ENCOUNTER 2024-07-16 15:05 | Outpatient (AMB) | payer OTHER, SELFPAY ==
[2024-07-16 15:29] VITALS: BP 112/88; PULSE 68; O2SAT 96; BMI 36.0
--- NOTE | 2024-07-16 15:29 | MHC.PC.OV ---
Vital Signs 07/16/24 15:29 Height 5 ft 2 in Weight 197 lb BMI 36.0 BP 112/88 Blood Pressure Location Rt brachial Position Sitting Pulse 68 Pulse Source Pulse Oximeter Pulse Oximetry (%) 96 Oxygen Delivery Method Room Air Intake Visit Reasons: gen body pain hx: fibromylagia Intake Note: Pt is here today c/o body pain Allergies shrimp Allergy (Mild, Verified 07/16/24 15:40) itch Medication List - Last Reconciled 07/16/24 by Kathia Jenkins MD albuterol sulfate 90 mcg/actuation (ProAir HFA) 2 puffs inhalation Q4-6H PRN amlodipine 2.5 mg PO DAILY 30 days anastrozole (Arimidex) 1 mg PO DAILY blood sugar diagnostic (FetchBack Verio test strips) Test blood sugar twice a day blood-glucose meter (FetchBack Verio Flex Meter) As directed bupropion HCl XL 300 mg PO QAM cholecalciferol (vitamin D3) 50 mcg PO DAILY duloxetine (Cymbalta) 20 mg PO BID duloxetine 60 mg PO QAM fluticasone propionate 110 mcg/actuation (Flovent HFA) 2 puffs PO BID lancets (Coinuch Delica Plus Lancet) Test blood sugar twice a day lorazepam 0.5 mg PO BID PRN losartan 100 mg PO DAILY meclizine 25 mg PO DAILY PRN metformin 500 mg PO BID metoprolol tartrate 25 mg PO BID pantoprazole 40 mg PO DAILY quetiapine 25 mg PO DAILY rosuvastatin 20 mg PO DAILY Tobacco use date assessed: 07/16/24 Fall risk assessment: No Falls in past year Last assessed Fall Risk: 07/16/24 Dental Screening Dental Screen Date: 07/16/24 Did you have a dental visit in the last 12 months?: Yes Did you have a dental problem in the last 6 months where you did not have access to dental care?: Yes Was dental information given to patient?: Patient has dentist HPI gen body pain hx: fibromylagia HPI Details 74 year-old lady with history of breast cancer, has diabetes mellitus, hypertension, hyperlipidemia, bronchial asthma, and depression, here today for her follow-up. Has been compliant with her medications, and diet, but admits to not getting much exercise lately due to pain and stiffness in her joints mainly in the fingers of both hands and painful swelling at the base of her left index finger, with finger getting stuck when she bends it occasionally [facility] Medical History (Updated 07/19/24 @ 04:26 by Kathia Jenkins MD) Bilateral finger arthralgia Trigger finger, left Carcinoma of left breast in female, estrogen receptor positive Hearing loss Diabetes mellitus with hyperglycemia, without long-term current use of insulin HX: breast cancer Depression Uses hearing aid Elevated cholesterol GERD (gastroesophageal reflux disease) Vaccination refused by patient Bronchial asthma Essential hypertension Surgical History Hx of eye surgery History of lumpectomy of left breast (11/28/22) History of breast lump/mass excision History of lumpectomy Hx of colonoscopy History of esophagogastroduodenoscopy (EGD) History of cholecystectomy Family History Father Diabetes mellitus Essential hypertension CVA (cerebral vascular accident) Dyslipidemia Mother Dyslipidemia CVA (cerebral vascular accident) Mother Mental health disorder Brother Mental health disorder Paternal Aunt Breast cancer Ovarian cancer Maternal Aunt Breast cancer Ovarian cancer Social History Housing: Apartment Are you a primary physician primary care sports medicine to a significant other at home: No Do you presently have visiting nurse or other home services: No Alcohol intake: never Patient Tobacco Use Status: Never used Tobacco e-Cigarette/Vaping Use: Never Used Advance Directives Date on File: 11/08/22 service: No Current occupational status: disabled Cognitive needs: No Hearing needs: Yes Vision needs: Yes Questionnaire PHQ-9 Over the last 2 weeks, how often have you been bothered by any of the following problems? 1. Little interest or pleasure in doing things: not at all 2. Feeling down, depressed, or hopeless: not at all 3. Trouble falling or staying asleep, or sleeping too much: not at all 4. Feeling tired or having little energy: nearly every day 5. Poor appetite or overeating: not at all 6. Feeling bad about yourself - or that you are a failure or have let yourself or your family down: several days 7. Trouble concentrating on things, such as reading the newspaper or watching television: not at all 8. Moving or speaking so slowly that other people could have noticed. Or the opposite - being so fidgety or restless that you have been moving around a lot more than usual: not at all 9. Thoughts that you would be better off or of hurting yourself in some way: not at all Total score: 4 Depression Screening Interpretation: Negative Depression Screening Done: Yes 78412 - PHQ-9 Billing: Yes Source: Developed by Drs. Cb Dickson, Echo Smart, Arcenio Barajas and colleagues, with an educational jeffrey from [employer]. Thrive Questionnaire Date Thrive assessed: 03/03/24 I am a: Patient What is your living situation today?: I have a steady place to live Within the past 12 months, did the food you bought not last and you didn't have the money to get more?: Never true Within the past 12 months, did you worry whether your food would run out before you got money to buy more?: Never true Do you have trouble paying for medicines?: No Do you have trouble getting transportation to medical appointments?: No Do you have trouble paying your heating and electricity bill?: No Do you have trouble taking care of your child, family member or friend?: No Do you have trouble with day-to-day activities such as bathing, preparing meals, shopping, managing finances, etc.?: I choose not to answer this question Are you currently unemployed and looking for a job?: I choose not to answer this question Are you interested in more education?: I choose not to answer this question Please select the resources that you would like help with: None Currently or been in a relationship where the following occur: No concerns reported and I choose not to answer THRIVE Score: 0 AUDIT C Alcohol Use Questionnaire (AUDIT-C) 1. How often do you have a drink containing alcohol?: Never Total Score: 0 YESICA-7 AMB Questionnaire YESICA-7 Date YESICA - 7 assessed: 03/03/24 Feeling nervous, anxious, or on edge: 1 = Several days Not being able to stop or control worryin = Not at all Worrying too much about different things: 1 = Several days Trouble relaxin = Not at all Being so restless that it is hard to sit still: 1 = Several days Becoming easily annoyed or irritable: 0 = Not at all Feeling afraid as if something awful might happen: 0 = Not at all Total YESICA-7 score (0-4 normal; 5-9 mild; 10-14 moderate; 15-21 severe): 3 Source: Developed by Drs. Cb Dickson, Echo Smart, Arcenio Barajas and colleagues, with an educational jeffrey from [employer]. Review of Systems Const Denies chills, Denies fever(s), Denies headache(s) and Denies weakness Eyes Reports no additional complaints ENT Denies headache(s) Card Denies chest pain, Denies irregular heart rhythm, Denies palpitations and Denies dyspnea Resp Denies cough, Denies excessive phlegm production and Denies dyspnea Denies urinary frequency Musc Reports as per HPI, Denies back pain, Denies muscle weakness and Denies numbness Neuro Denies headache(s), Denies numbness, Denies paresthesias and Denies weakness Psych Reports no additional complaints Endo Denies palpitations Jaylen/Lymph Denies lymphadenopathy Aller/Immun Reports no additional complaints Physical exam (Primary Care) Vital Signs: Last Vital Signs Pulse 68 07/16/24 15:29 BP 112/88 07/16/24 15:29 Pulse Ox 96 07/16/24 15:29 Oxygen Delivery Method Room Air 07/16/24 15:29 BMI result Body Mass Index 36.0 Tobacco/Smoking Status: Tobacco use Status Tobacco use date assessed 07/16/24 07/16/24 15:31 Patient Tobacco Use Status Never used Tobacco 07/16/24 15:31 e-Cigarette/Vaping Use Never Used 07/16/24 15:31 Depression Screening Interpretation: Negative Thrive Assessment: Date of Thrive Assessment Date Thrive assessed 03/03/24 07/16/24 15:31 Currently or been in a relationship where the following occur: No concerns reported and I choose not to answer Const General: comfortable, no acute distress and alert Orientation/consciousness: patient oriented x3 HENMT Other: wears hearing aids General nose exam: Normal external nose present Face and sinus: Yes face symmetric Mouth: oropharynx normal and moist mucous membranes Eyes General: appearance normal, both eyes and all related structures Conjunctivae: conjunctivae normal Sclerae: sclerae normal Pupils: Equal, round and reactive pupils present EOM: EOMs intact bilaterally Neck Neck: Yes full ROM, Yes no lymphadenopathy and Yes supple Resp Effort & Inspection: normal respiratory effort and able to speak in complete sentences Auscultation: clear to auscultation bilaterally Cardio Rate: regular rate Rhythm: regular rhythm Heart sounds: S1 normal heart sound present and S2 normal heart sound present GI Palpation (GI): Soft to palpation, nontender and no masses Auscultation: normal bowel sounds General: Yes no CVA tenderness Back/Spine/Pelvis Back: no CVA tenderness and No back tenderness Neuro General: patient oriented x3, tone normal, moves all extremities, Normal light touch and pain sensation and no focal motor deficits Cranial nerves: Yes CN's II-XII intact bilaterally and Yes Equal, round and reactive pupils present Cognition (Neuro): normal cognition Gait exam (Neuro): Wide-based gait present Extrem Other: trigger finger left hand , tender swelling at base of left ring finger General: Yes full ROM, Yes no joint enlargement, Yes no clubbing, cyanosis or edema and Yes no calf tenderness Psych Appearance: grossly normal and well kempt Mental Status: mental status grossly normal Speech and movement: Normal speech and movement present Affect: normal affect Attitude: cooperative Results AMB Hemoglobin A1c AMB Hemoglobin A1c 7.2 % Last Edit by Cony Welsh CMA on 07/16/24 15:48 Results Reviewed Results Reviewed: Laboratory Last Values Hgb A1c (Clinic) 7.2 % (4.0-6.0) H 07/16/24 15:39 Coding Level of Care Code Est Pt Level 4 (95436) Complex EM visit Add On G2211 Diagnoses Trigger ring finger of left hand M65.342 Trigger finger location: ring finger Bilateral finger arthralgia M25.541; M25.542 Type 2 diabetes mellitus with hyperglycemia, without long-term current use of insulin E11.65 Diabetes mellitus type: type 2 Essential hypertension I10 Dyslipidemia E78.5 Recurrent major depressive disorder, in partial remission F33.41 Depression Type: major depressive disorder Major depression recurrence: recurrent Active/Remission status: in partial remission Assessment & Plan Assessment & Plan (1) Trigger finger, left: Code(s): M65.30 - Trigger finger, unspecified finger Category: Medical Qualifiers: Trigger finger location: ring finger Qualified Code(s): M65.342 - Trigger finger, left ring finger Plan: orthopedics consult requested (2) Bilateral finger arthralgia: Code(s): M25.541 - Pain in joints of right hand; M25.542 - Pain in joints of left hand Category: Medical Plan: trial Diclofenac gel 1 % , massaged on affected joints TID as needed for joint pain (3) Diabetes mellitus with hyperglycemia, without long-term current use of insulin: Code(s): E11.65 - Type 2 diabetes mellitus with hyperglycemia Category: Medical Qualifiers: Diabetes mellitus type: type 2 Qualified Code(s): E11.65 - Type 2 diabetes mellitus with hyperglycemia Plan: Hemoglobin A1c today at 7.2%. Continue with metformin 500 mg 1 tablet twice a day with meals, reinforced importance of following diabetic diet and staying active. Reminded to get yearly diabetes retinopathy screening. Does not want to get any vaccines (4) Essential hypertension: Code(s): I10 - Essential (primary) hypertension Category: Medical Plan: Blood pressure at goal of less than 130/80. Continue with current medication. Reinforced importance of following a low sodium diet, getting regular exercise, and lowering stress levels. (5) Dyslipidemia: Code(s): E78.5 - Hyperlipidemia, unspecified Category: Medical Plan: Fasting lipid panel ordered continue with rosuvastatin 20 mg daily (6) Depression: Code(s): F32.A - Depression, unspecified Category: Medical Qualifiers: Depression Type: major depressive disorder Major depression recurrence: recurrent Active/Remission status: in partial remission Qualified Code(s): F33.41 - Major depressive disorder, recurrent, in partial remission Plan: Currently controlled on duloxetine , quetiapine and bupropion, followed by Psychiatry Orders: Orders Lipid Panel 3 Months E11.65 - Type 2 diabetes mellitus with hyperglycemia, E78.5 - Hyperlipidemia, unspecified, I10 - Essential (primary) hypertension, Z78.0 - Asymptomatic menopausal state Basic Metabolic Panel Fasting 3 Months E11.65 - Type 2 diabetes mellitus with hyperglycemia, E78.5 - Hyperlipidemia, unspecified, I10 - Essential (primary) hypertension, Z78.0 - Asymptomatic menopausal state AMB Hemoglobin A1c 07/16/24 E11.65 - Type 2 diabetes mellitus with hyperglycemia Hemoglobin A1c 3 Months E11.65 - Type 2 diabetes mellitus with hyperglycemia, E78.5 - Hyperlipidemia, unspecified, I10 - Essential (primary) hypertension, Z78.0 - Asymptomatic menopausal state Alanine Aminotransferase 3 Months E11.65 - Type 2 diabetes mellitus with hyperglycemia, E78.5 - Hyperlipidemia, unspecified, I10 - Essential (primary) hypertension, Z78.0 - Asymptomatic menopausal state Aspartate Amino Transferase 3 Months E11.65 - Type 2 diabetes mellitus with hyperglycemia, E78.5 - Hyperlipidemia, unspecified, I10 - Essential (primary) hypertension, Z78.0 - Asymptomatic menopausal state Microalbumin, Random (w Creat) 3 Months E11.65 - Type 2 diabetes mellitus with hyperglycemia, E78.5 - Hyperlipidemia, unspecified, I10 - Essential (primary) hypertension, Z78.0 - Asymptomatic menopausal state Vitamin D 25-OH Total 3 Months E11.65 - Type 2 diabetes mellitus with hyperglycemia, E78.5 - Hyperlipidemia, unspecified, I10 - Essential (primary) hypertension, Z78.0 - Asymptomatic menopausal state Referrals Orthopedics Referral M25.541 - Pain in joints of right hand, M25.542 - Pain in joints of left hand, M65.30 - Trigger finger, unspecified finger Medications: New blood-glucose meter (OneTouch Verio Flex Meter) Check fasting blood sugar twice a day before eating 1 ea 0RF E11.65 - Type 2 diabetes mellitus with hyperglycemia diclofenac sodium 1% apply to single elbow, wrist or hand; for hand includes palm/fingers/back of hand 2 grams topical QID 100 grams 0RF M25.541 - Pain in joints of right hand, M25.542 - Pain in joints of left hand
== END 2024-07-16 16:31 | disposition home or self-care (01) ==
PROVIDERS: PCP Internal Medicine; Visit Provider Internal Medicine
DX: E11.65 Type 2 diabetes mellitus with hyperglycemia (principal); F33.41 Major depressive disorder, recurrent, in partial remission; M65.342 Trigger finger, left ring finger; M25.541 Pain in joints of right hand; M25.542 Pain in joints of left hand; I10 Essential (primary) hypertension; E78.5 Hyperlipidemia, unspecified

== ENCOUNTER → 2024-07-16 15:05 | Outpatient (BNVA) | payer OTHER, SELFPAY | PROVIDERS: PCP Internal Medicine; Visit Provider Internal Medicine | DX: M65.342 Trigger finger, left ring finger (principal); M25.541 Pain in joints of right hand; M25.542 Pain in joints of left hand; E11.65 Type 2 diabetes mellitus with hyperglycemia; E78.5 Hyperlipidemia, unspecified; I10 Essential (primary) hypertension; F33.41 Major depressive disorder, recurrent, in partial remission | CPT/HCPCS: 83036; 96127; 99212 ==

== ENCOUNTER 2024-09-04 09:36 | Outpatient (REF) | payer OTHER, SELFPAY | END 2024-09-04 09:37 | disposition home or self-care (01) | LOC: HO.HOSX 09:36 | DX: M79.642 Pain in left hand (principal); M79.641 Pain in right hand; M25.531 Pain in right wrist; M25.532 Pain in left wrist; M65.342 Trigger finger, left ring finger; R20.0 Anesthesia of skin; R20.2 Paresthesia of skin | CPT/HCPCS: 73130; 99202 ==

== ENCOUNTER 2024-09-04 13:23 | Outpatient (AMB) | payer OTHER, SELFPAY ==
--- NOTE | 2024-09-04 13:32 | A.OFFVIS_ITS ---
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 Patient reports this has been on going daily. Reports difficulty with lifting, gripping, grasping, and squeezing. Patient expresses pain with flexion and extension of bilateral wrist. The pain in the right had radiates up to her right shoulder. Hx of surgery in right hand, thinks it was CTR. States they are experiencing locking and cramping of the left 4th digit. Reports left 4th and 5th digits and right 2nd and 3rd fingers have numbness and tingling and feel as if they are going to explode. Her symptoms are worse at night causing her to wake up. Has tried Tylenol and ibuprofen with mild adequate relief. 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 The patient states that this has been ongoing for many years. Patient states that her symptoms are worse in the left hand in the right hand. Patient states that the locking and catching of her ring finger is particularly bothersome and very painful. Patient states she is not sure which digits of the bilateral hands go numb when they do. No other acute complaints or concerns at this time. [facility] Medical History (Updated 09/04/24 @ 15:24 by LUCY James) Bilateral finger arthralgia Trigger finger, left Carcinoma of left breast in female, estrogen receptor positive Hearing loss Diabetes mellitus with hyperglycemia, without long-term current use of insulin HX: breast cancer Depression Uses hearing aid Elevated cholesterol GERD (gastroesophageal reflux disease) Vaccination refused by patient Bronchial asthma Essential hypertension Surgical History Hx of eye surgery History of lumpectomy of left breast (11/28/22) History of breast lump/mass excision History of lumpectomy Hx of colonoscopy History of esophagogastroduodenoscopy (EGD) History of cholecystectomy Family History Father Diabetes mellitus Essential hypertension CVA (cerebral vascular accident) Dyslipidemia Mother Dyslipidemia CVA (cerebral vascular accident) Mother Mental health disorder Brother Mental health disorder Paternal Aunt Breast cancer Ovarian cancer Maternal Aunt Breast cancer Ovarian cancer Social History Housing: Apartment Are you a primary career developer to a significant other at home: No Do you presently have visiting nurse or other home services: No Alcohol intake: never Patient Tobacco Use Status: Never used Tobacco e-Cigarette/Vaping Use: Never Used Advance Directives Date on File: 11/08/22 service: No Current occupational status: disabled Cognitive needs: No Hearing needs: Yes Vision needs: Yes Review of Systems Const All systems reviewed & are unremarkable except as noted in HPI and below Physical Exam Vital Signs: BMI result Body Mass Index 36.0 Extrem Other: Neuro: Normal sensation of the tips of all digits of bilateral hands in the office today No thenar or intrinsic wasting. Good APB muscle firing and good finger cross. Vascular: Capillary refill brisk. ROM: Patient can make a fist and extend all their digits. There is visible and palpable locking and catching of the left ring finger Pain with resisted flexion of bilateral wrists Skin: No lacerations or abrasions noted. General: No ecchymosis. No erythema or evidence of infection. Assessment & Plan Assessment & Plan (1) Bilateral finger arthralgia: Code(s): M25.541 - Pain in joints of right hand; M25.542 - Pain in joints of left hand Category: Medical (2) Bilateral wrist pain: Code(s): M25.531 - Pain in right wrist; M25.532 - Pain in left wrist Category: Medical (3) Trigger finger, left: Code(s): M65.30 - Trigger finger, unspecified finger Category: Medical Qualifiers: Trigger finger location: ring finger Qualified Code(s): M65.342 - Trigger finger, left ring finger (4) Numbness and tingling in both hands: Code(s): R20.0 - Anesthesia of skin; R20.2 - Paresthesia of skin Category: Medical Plan 1. Trigger finger, left ring finger I educated the patient about the condition. I discussed both operative and nonoperative treatment options. The patient would like to proceed with surgery. The risks and benefits of operative treatment were discussed with the patient and the patient wishes to proceed with surgery. These risks include, but are not limited to, risk of damage to blood vessels, nerves, tendons, infection, recurrence, incomplete relief of preoperative symptoms, persistent pain, possible need for further surgery, and the risks associated with regional blocks and/or anesthesia. Plan is to take the patient to the operating room at some point in the next few weeks for the following procedures: 1. Left ring finger trigger release under local anesthesia All of the preoperative paperwork including the consent was discussed today. All of the patient's questions were answered in the clinic today. The patient understands that they will be in contact with our rn medical surgical to discuss scheduling their procedure. Patient reports diabetes, last A1c 7.2 Denies blood thinners, asthma, heart issues, lung issues, kidney issues, or current smoking. 2. Numbness and tingling of bilateral hands Symptoms intermittent, daily, worse at night Patient was referred for EMG and nerve conduction study for assessment of the health of the nerves of bilateral upper extremities Patient is educated that after EMG and nerve conduction study she will return for results review and discussion of further treatment options If patient does have carpal tunnel syndrome, patient was advised that we can add this procedure onto her previously scheduled trigger release if it was present in the left hand Patient expresses understanding of this and is amenable to this plan 3. Stiffness and bilateral hands and wrists At this time, patient was referred to occupational therapy for range of motion and strengthening of bilateral and wrists Patient was plan Orders: Orders 2 XR hand LT min 3V Today M79.642 - Pain in left hand NE electromyogram (EMG) Today R20.0 - Anesthesia of skin, R20.2 - Paresthesia of skin NE nerve conduction velocity Today R20.0 - Anesthesia of skin, R20.2 - Paresthesia of skin XR hand RT min 3V Today M79.641 - Pain in right hand OT Evaluation and Treatment Today M25.531 - Pain in right wrist, M25.532 - Pain in left wrist, M25.541 - Pain in joints of right hand, M25.542 - Pain in joints of left hand Coding Level of Care Code New Pt Level 4 (28854) Diagnoses Bilateral finger arthralgia M25.541; M25.542 Bilateral wrist pain M25.531; M25.532 Trigger ring finger of left hand M65.342 Trigger finger location: ring finger Numbness and tingling in both hands R20.0; R20.2
[2024-09-04 13:44] VITALS: BMI 36.0
== END 2024-09-04 14:15 | disposition home or self-care (01) ==
PROVIDERS: PCP Internal Medicine
DX: M25.541 Pain in joints of right hand (principal); M25.542 Pain in joints of left hand; M25.531 Pain in right wrist; M25.532 Pain in left wrist; M65.342 Trigger finger, left ring finger; R20.0 Anesthesia of skin; R20.2 Paresthesia of skin
CPT/HCPCS: 99204

== ENCOUNTER 2024-11-11 13:39 | Outpatient (REF) | payer OTHER, SELFPAY ==
--- NOTE | ~2024-11-11 | MM_ITS ---
EXAMINATION: MM DIAGNOSTIC DIGITAL BREAST TOMOSYNTHESIS, BILATERAL CLINICAL INFORMATION: Left breast cancer in 2022 status post lumpectomy and conservation therapy. COMPARISON: Mammography: Comparison is made with relevant prior exams. TECHNIQUE: Digital breast mammography with tomosynthesis is performed in both the craniocaudal and mediolateral oblique views along with computer-aided detection (CAD). FINDINGS: There are scattered areas of fibroglandular density (ACR BI-RADS breast composition Category b). Post left lumpectomy changes are stable. There are no significant masses, abnormal calcifications, or other abnormalities. Results are provided to the patient at time of visit by the technologist. MM/MM tomosynthesis diagnostic BI IMPRESSION: Status post left lumpectomy changes. No mammographic evidence of malignancy. ASSESSMENT: BI-RADS BI-RADS 2 - Benign Findings RECOMMENDATION: 12 month diagnostic follow up This patient's information was entered into a reminder system with a target due date for their next mammogram. Electronically signed by: Rosa Zapien DO 11/11/2024 02:27 PM CAROL BLACKMAN
--- OUTSIDE RECORDS SUMMARY | 2024-11-11 14:02 | XMS_ITS | Clinical Summary ---
Author Organization [facility] Address [address] [place] [address] Phone Care Team Providers Care Medicaid Billing Specialist Name Role Phone Unavailable Primary Care Provider Unavailabl e Allergies Active Allergy Reactions Criticality Noted Date Comments Shrimp Extract Hives,Itching 01/25/2023 Medications * This document contains information received from the source organization and may not represent a complete record from that organization. Docusate Sodium (COLACE PO) Take 2 capsules by mouth 1 (one) time each day Active albuterol HFA (PROVENTIL HFA;VENTOLIN HFA) 108 (90 Base) MCG/ACT inhaler 4 puffs by Other route 5 (five) times a day Active cholecalciferol (VITAMIN D-3) 25 MCG (1000 UT) capsule Take 1 capsule by mouth 1 (one) time each day Active FLUoxetine (PROzac) 20 MG capsule Take 3 capsules by mouth 1 (one) time each day Active LORazepam (ATIVAN) 0.5 MG tablet Take 1 tablet by mouth 2 (two) times a day Active losartan (COZAAR) 100 MG tablet 1 tablet 1 (one) time each day in the evening 3 Active metoprolol tartrate (LOPRESSOR) 25 MG tablet Take 1 tablet by mouth 2 (two) times a day Active pantoprazole (PROTONIX) 40 MG EC tablet Take 1 tablet by mouth 1 (one) time each day Active QUEtiapine (SEROquel) 100 MG tablet Take 1 tablet by mouth 1 (one) time each day Active rosuvastatin (CRESTOR) 20 MG tablet Take 1 tablet by mouth 1 (one) time each day Active Flovent HFA 110 MCG/ACT inhaler INHALE 2 PUFFS BY MOUTH TWICE A DAY 1 Active buPROPion XL (WELLBUTRIN XL) 300 MG 24 hr tablet Take 300 mg by mouth 1 (one) time each day in the morning 1 Active DULoxetine (CYMBALTA) [address] capsule 1 Active amLODIPine (NORVASC) 2.5 MG tablet TAKE 1 TABLET BY MOUTH EVERY DAY IN THE EVENING 90 tablet 3 3 Active anastrozole (ARIMIDEX) 1 MG chemo tablet Take 1 mg by mouth 1 (one) time each day Swallow whole with a drink of water. Active metFORMIN (GLUCOPHAGE) 500 MG tablet TAKE 1 TAB WITH SUPPER INITIALLY FOR THE 1ST WEEK, THEN INCREASE TO 1 TABLET TWICE A DAY WITH MEALS. 3 Active Active Problems Problem Noted Date Diagnosed Date Type 2 diabetes mellitus wit h diabetic chronic kidney disease 02/20/2024 Chronic kidney disease stage 1 12/08/2020 Essential hypertension 12/08/2020 Hypertensive heart disease without congestive he art failure 12/08/2020 Proteinuria 12/08/2020 Family History Medical History Relation Comments Heart disease Child Diabetes Father Hypertension Father Stroke Father Dementia Mother Diabetes Mother Heart disease Mother Hypertension Mother Stroke Mother Hypertension Sibling 1 Diabetes Sibling 2 Relation Status Comments Child Father Mother Alive Sibling 1 Sibling 2 Social History Tobacco Use Types Packs/Day Years Used Date Smoking Tobacco: Never Smokeless Tobacco: Never Tobacco Cessation:Counseling Given: Not Answered Alcohol Use Standard Drinks/Week Comments No 0 (1 standard drink = 0.6 oz pur e alcohol) Comments Unknown Sex and Gender Information Value Date Recorded Sex Assigned at Not on file Legal Sex Female 5:00 PM EST Gender Identity Not on file Sexual Orientation Not on file Last Filed Vital Signs Vital Sign Reading Time Taken Comments Blood Pressure 129/80 02/20/2024 11:05 AM EDT Pulse 74 02/20/2024 11:05 AM EDT Temperature - - Respiratory Rate - - Oxygen Saturation 97% 02/20/2024 11:05 AM EDT Inhaled Oxygen Concentration - - Weight 90.1 kg (198 lb 9.6 oz) 02/20/2024 11:05 AM EDT Height 160 cm (5' 3 ) 01/14/2023 1:11 PM EDT Body Mass Index 35.18 01/14/2023 1:11 PM EDT Plan of Treatment Upcoming Encounters Date Type Department Care Team (Late st Contact Info) Description 03/01/2025 1:15 PM EDT Office Visit [facility] [address] [place] [address] Naga Henderson MD [address] [facility] [address] [place] [address] Health Maintenance Due Date Last Done Comments Breast Cancer Screening 1950 Pneumococcal Vaccine: 65+ Ye ars (1 of 2 - PCV) 02/13/1958 Colorectal Cancer Screening: Annual FOBT 02/13/2001 Colorectal Cancer Screening: Colonoscopy 02/13/2001 Colorectal Cancer Screening: Sigmoidoscopy 02/13/2001 Diabetes: Ophthalmology Exam 08/23/2023 Diabetes: Pedal Pulse Checked 08/23/2023 Diabetes: Sensory Foot Exam 08/23/2023 Diabetes: Visual Foot Exam 08/23/2023 Diabetes: Hemoglobin A1C 04/25/2024 01/24/2024 Influenza Vaccine (#1) 2024 Hepatitis B Vaccine Aged Out No longe r eligible based on patient's age to complete this topic Procedures Procedure Name Priority Date/Time Associated Diagnosis Comments EXT RESULT ENTRY Routine 01/24/2024 from Last 3 Months or Most Recently Relevant to Health Maintenance Results * (ABNORMAL) EXT RESULT ENTRY (01/24/2024) Sodium 139 137 - 147 Potassium 4.0 3.4 - 5.5 Chloride 105.0 99.0 - 108.0 Anion Gap 16 <=30 MMOL/L BUN 18 4 - 21 mg/dL Creatinine 0.74 0.50 - 1.10 mg/dL Calcium 10.2 8.7 - 10.7 mg/dL Hemoglobin A1C 7.2(A) 4.0 - 6.0 01/24/2024 us Historical Provider LAB BLOOD ORDERABLES Flori l Result from Last 3 Months or Most Recently Relevant to Health Maintenance Insurance [facility] DUAL COMPLETE ([id number]) Member Subscriber Plan / Payer (Ef fective 2019-Present) Name:Jessica Hicks Relation to Subscriber:Self Name:Jessica Hicks Payer ID:[id number] (NAIC) Group ID:Not on file Type:Not on file Address[address] [address] [id number] DUAL COMPLETE ([id number]) Member Subscriber Plan / Payer (Ef fective 2019-Present) Name:Jessica Hicks Relation to Subscriber:Self Name:Jessica Hicks Payer ID:[id number] (NAIC) Group ID:Not on file Type:Not on file Address: [place] [phone]
--- OUTSIDE RECORDS SUMMARY | 2024-11-11 14:02 | XMS_ITS | Encounter Summary ---
Author Organization [facility] Address [address] [place] [address] Phone Care Team Providers Care Security Systems Manager Name Role Phone Geneva Jenkins MD Primary Care Provider [phone]- [phone] Reason for Visit * Reason Comments Med Refill Encounter Details Date Type Department Care Team (Late Contact Info) Description 01/07/2023 [facility]ill [facility] [address] [place] [address] Ambrosio Gilliland MD Social History Tobacco Use Types Packs/Day Years Used Date Smoking Tobacco: Never Smokeless Tobacco: Never Alcohol Use Standard Drinks/Week Comments No 0 (1 standard drink = 0.6 oz pur e alcohol) Comments Unknown Sex and Gender Information Value Date Recorded Sex Assigned at Not on file Legal Sex Female 5:00 PM EST Gender Identity Not on file Sexual Orientation Not on file documented as of this encounter Plan of Treatment Upcoming Encounters Date Type Department Care Team (Late Contact Info) Description 03/01/2025 1:15 PM EDT [facility] Visit [facility] [address] [place] [address] Naga Henderson MD [address] [facility] [address] [place] [address] documented as of this encounter Visit Diagnoses Not on filedocumented in this encounter Care Teams Security Systems Manager Relationship Specialty Start Date End Date Geneva Jenkins MD 1959 [facility] [place] [place] [address] PCP - General 10/03/20 07/21/23 documented as of this encounter
== END 2024-11-11 13:40 | disposition home or self-care (01) ==
LOC: HO.MAMMO 13:39
PROVIDERS: PCP Internal Medicine; Visit Provider Surgery
DX: Z85.3 Personal history of malignant neoplasm of breast (principal)
CPT/HCPCS: 77062; 77066

== ENCOUNTER → 2024-11-11 14:00 | Outpatient (BNV) | payer OTHER, SELFPAY | PROVIDERS: PCP Internal Medicine; Visit Provider Internal Medicine | DX: Z85.3 Personal history of malignant neoplasm of breast (principal); Z98.890 Other specified postprocedural states; R92.323 Mammographic fibroglandular density, bilateral breasts | CPT/HCPCS: 77066; G0279 ==

== ENCOUNTER 2024-12-01 12:26 | Outpatient (AMB) | payer OTHER, SELFPAY ==
[2024-12-01 12:36] VITALS: BP 132/70; PULSE 64; RESP 15; TEMP 36.7; O2SAT 95; BMI 35.5
--- NOTE | 2024-12-01 12:36 | A.OFFPC_ITS ---
Vital Signs 12/01/24 12:36 Height 5 ft 2 in Weight 194 lb BMI 35.5 BP 132/70 Blood Pressure Location Lt brachial Position Sitting Respiration 15 Pulse 64 Pulse Source Pulse Oximeter Temp 98.0 F Temp Source Oral Pulse Oximetry (%) 95 Oxygen Delivery Method Room Air Intake Visit Reasons: annual physical Intake Note: Pt is here today for her PE: Last mammogram 11/11/24, bone denisty scan 03/14/23, colonoscopy 08/29/21 Allergies shrimp Allergy (Mild, Verified 12/01/24 13:03) itch Medication List - Last Reconciled 12/01/24 by Kathia Jenkins MD albuterol sulfate 90 mcg/actuation 2 puffs inhalation Q4-6H PRN amlodipine 2.5 mg PO DAILY 30 days anastrozole (Arimidex) 1 mg PO DAILY blood sugar diagnostic (Qinecuch Verio test strips) Test blood sugar twice a day blood-glucose meter (PrintlandTouch Verio Flex Meter) Check fasting blood sugar twice a day before eating blood-glucose meter (OneTouch Verio Flex Meter) As directed bupropion HCl XL 300 mg PO QAM cholecalciferol (vitamin D3) 50 mcg PO DAILY diclofenac sodium 1% 2 grams topical QID duloxetine (Cymbalta) 20 mg PO BID duloxetine 60 mg PO QAM fluticasone propionate 110 mcg/actuation (Flovent HFA) 2 puffs PO BID lancets (PrintlandTouch Delica Plus Lancet) Test blood sugar twice a day lorazepam 0.5 mg PO BID PRN losartan 100 mg PO DAILY meclizine 25 mg PO DAILY PRN metformin 500 mg PO BID metoprolol tartrate 25 mg PO BID pantoprazole 40 mg PO DAILY quetiapine 25 mg PO DAILY rosuvastatin 20 mg PO DAILY Tobacco use date assessed: 12/01/24 Fall risk assessment: No Falls in past year Last assessed Fall Risk: 12/01/24 Dental Screening Dental Screen Date: 12/01/24 Did you have a dental visit in the last 12 months?: Yes Did you have a dental problem in the last 6 months where you did not have access to dental care?: No Was dental information given to patient?: Patient has dentist HPI annual physical HPI Details 74-year-old lady here today for her phys ical exam. History of left breast cancer status post lumpectomy lymph node dissection, currently on anastrozole now for the last 2 years, followed by Dr. North and Dr. Matias, with last mammogram showing no evidence of cancer in October 2024. Has been having more hot flashes since starting anastrozole . Last bone density scan was ordered by Dr. North, 03/14/23 which showed osteopenia in left femoral neck, normal in lumbar spine and left femur. No history of fractures. She had a colonoscopy 08/29/21 which showed moderate to severe diverticulosis in colon and presence of internal hemorrhoids, repeat colonoscopy due again in 2030 [facility] Medical History (Updated 12/07/24 @ 01:53 by Kathia Jenkins MD) Vaccination refused by patient Bilateral finger arthralgia Trigger finger, left Carcinoma of left breast in female, estrogen receptor positive Hearing loss Diabetes mellitus with hyperglycemia, without long-term current use of insulin HX: breast cancer Depression Uses hearing aid Elevated cholesterol GERD (gastroesophageal reflux disease) Bronchial asthma Essential hypertension Surgical History Hx of eye surgery History of lumpectomy of left breast (11/28/22) History of breast lump/mass excision History of lumpectomy Hx of colonoscopy History of esophagogastroduodenoscopy (EGD) History of cholecystectomy Family History Father Diabetes mellitus Essential hypertension CVA (cerebral vascular accident) Dyslipidemia Mother Dyslipidemia CVA (cerebral vascular accident) Mother Mental health disorder Brother Mental health disorder Paternal Aunt Breast cancer Ovarian cancer Maternal Aunt Breast cancer Ovarian cancer Social History Housing: Apartment Are you a primary day care provider to a significant other at home: No Do you presently have visiting nurse or other home services: No Alcohol intake: never Patient Tobacco Use Status: Never used Tobacco e-Cigarette/Vaping Use: Never Used Advance Directives Date on File: 11/08/22 service: No Current occupational status: disabled Cognitive needs: No Hearing needs: Yes Vision needs: Yes Questionnaire PHQ-9 Over the last 2 weeks, how often have you been bothered by any of the following problems? 1. Little interest or pleasure in doing things: not at all 2. Feeling down, depressed, or hopeless: more than half the days 3. Trouble falling or staying asleep, or sleeping too much: more than half the days 4. Feeling tired or having little energy: several days 5. Poor appetite or overeating: not at all 6. Feeling bad about yourself - or that you are a failure or have let yourself or your family down: more than half the days 7. Trouble concentrating on things, such as reading the newspaper or watching television: more than half the days 8. Moving or speaking so slowly that other people could have noticed. Or the opposite - being so fidgety or restless that you have been moving around a lot more than usual: not at all 9. Thoughts that you would be better off or of hurting yourself in some way: not at all Total score: 9 Depression Screening Interpretation: Negative Depression Screening Done: Yes Source: Developed by Drs. Cb Dickson, Echo Smart, Arcenio Barajas and colleagues, with an educational jeffrey from [employer]. Thrive Questionnaire Date Thrive assessed: 12/01/24 I am a: Patient What is your living situation today?: I have a steady place to live Within the past 12 months, did the food you bought not last and you didn't have the money to get more?: Never true Within the past 12 months, did you worry whether your food would run out before you got money to buy more?: Sometimes True Do you have trouble paying for medicines?: No Do you have trouble getting transportation to medical appointments?: No Do you have trouble paying your heating and electricity bill?: No Do you have trouble taking care of your child, family member or friend?: No Do you have trouble with day-to-day activities such as bathing, preparing meals, shopping, managing finances, etc.?: No Are you currently unemployed and looking for a job?: No Are you interested in more education?: No Please select the resources that you would like help with: None Currently or been in a relationship where the following occur: No concerns reported THRIVE Score: 1 AUDIT C Alcohol Use Questionnaire (AUDIT-C) 1. How often do you have a drink containing alcohol?: Never Total Score: 0 YESICA-7 AMB Questionnaire YESICA-7 Date YESICA - 7 assessed: 12/01/24 Feeling nervous, anxious, or on edge: 1 = Several days Not being able to stop or control worryin = Several days Worrying too much about different things: 1 = Several days Trouble relaxin = Several days Being so restless that it is hard to sit still: 0 = Not at all Becoming easily annoyed or irritable: 0 = Not at all Feeling afraid as if something awful might happen: 0 = Not at all Total YESICA-7 score (0-4 normal; 5-9 mild; 10-14 moderate; 15-21 severe): 4 Source: Developed by Drs. Cb Dickson, Echo Smart, Arcenio Barajas and colleagues, with an educational jeffrey from [employer]. Review of Systems Const Denies chills, Denies fever(s), Denies headache(s) and Denies weakness Eyes Details: Goes to [facility] exam Reports no additional complaints ENT Details: Followed by Dr. Pina for hearing loss in infection in right ear canal Denies headache(s) Card Denies chest pain, Denies irregular heart rhythm, Denies palpitations and Denies dyspnea Resp Denies cough, Denies excessive phlegm production and Denies dyspnea GI Reports no additional complaints Denies urinary frequency Musc Reports as per HPI, Denies back pain, Denies muscle weakness and Denies numbness Skin/Breast Reports system reviewed and no additional complaints, except as documented Neuro Denies headache(s), Denies numbness, Denies paresthesias and Denies weakness Psych Details: Followed by Marguerite Riggs at [facility] in [place] Reports no additional complaints Endo Denies palpitations Jaylen/Lymph Denies lymphadenopathy Aller/Immun Reports no additional complaints Physical exam (Primary Care) Vital Signs: Last Vital Signs Temp 98.0 F 12/01/24 12:36 Pulse 64 12/01/24 12:36 Resp 15 12/01/24 12:36 BP 132/70 12/01/24 12:36 Pulse Ox 95 12/01/24 12:36 Oxygen Delivery Method Room Air 12/01/24 12:36 BMI result Body Mass Index 35.5 Tobacco/Smoking Status: Tobacco use Status Tobacco use date assessed 12/01/24 12/01/24 12:39 Patient Tobacco Use Status Never used Tobacco 12/01/24 12:39 e-Cigarette/Vaping Use Never Used 12/01/24 12:39 PHQ-9: PHQ-9 Score PHQ-9: Total score 9 12/01/24 13:28 Depression Screening Interpretation: Negative Thrive Assessment: Date of Thrive Assessment Date Thrive assessed 12/01/24 12/01/24 12:41 Currently or been in a relationship where the following occur: No concerns reported Advance Care Planning discussion: On file, no changes Date of discussion: 11/08/22 Who was present: Patient and daughter Forms completed: Health Care Proxy and MOLST Time spent: 1-15 minutes, on File Actual minutes spent: 1 Const General: comfortable, no acute distress and alert Orientation/consciousness: patient oriented x3 HENMT Other: wears hearing aids General nose exam: Normal external nose present Face and sinus: Yes face symmetric Mouth: oropharynx normal and moist mucous membranes Eyes General: appearance normal, both eyes and all related structures Conjunctivae: conjunctivae normal Sclerae: sclerae normal Pupils: Equal, round and reactive pupils present EOM: EOMs intact bilaterally Neck Neck: Yes full ROM, Yes no lymphadenopathy and Yes supple Resp Effort & Inspection: normal respiratory effort and able to speak in complete sentences Auscultation: clear to auscultation bilaterally Cardio Rate: regular rate Rhythm: regular rhythm Heart sounds: S1 normal heart sound present and S2 normal heart sound present GI Palpation (GI): Soft to palpation, nontender and no masses Auscultation: normal bowel sounds General: Yes no CVA tenderness Back/Spine/Pelvis Back: no CVA tenderness and No back tenderness Skin General skin exam: no rashes or lesions noted Neuro General: patient oriented x3, tone normal, moves all extremities, Normal light touch and pain sensation and no focal motor deficits Cranial nerves: Yes CN's II-XII intact bilaterally and Yes Equal, round and cristobal ctive pupils present Cognition (Neuro): normal cognition Gait exam (Neuro): Wide-based gait present Extrem Other: trigger finger left hand , tender swelling at base of left ring finger General: Yes full ROM, Yes no joint enlargement, Yes no clubbing, cyanosis or edema and Yes no calf tenderness Psych Appearance: grossly normal and well kempt Mental Status: mental status grossly normal Speech and movement: Normal speech and movement present Affect: normal affect Attitude: cooperative Coding Level of Care Code Est Pt Prev Care >65y(13569) Diagnoses Annual visit for general adult medical examination with abnormal findings Z00 .01 Type 2 diabetes mellitus with hyperglycemia, without long-term current use of insulin E11.65 Diabetes mellitus type: type 2 Dyslipidemia E78.5 Recurrent major depressive disorder, in partial remission F33.41 Depression Type: major depressive disorder Major depression recurrence: recurrent Active/Remission status: in partial remission Bronchial asthma J45.909 Essential hypertension I10 Vaccination refused by patient Z28.21 Additional Codes Vital Signs *Quality* - Advance Care Planning discussion: On file, no changes ([id number]) Vital Signs *Quality* - Time spent: 1-15 minutes, on File ([id number]) Assessment & Plan Assessment & Plan (1) Annual visit for general adult medical examination with abnormal findings: Code(s): Z00. - Encounter for general adult medical examination with abnormal findings Plan: Will check appropriate labs. Recommended dental visit every 6 months and yearly eye exams. Take adequate calcium in diet and vitamin-D 3 at 2000 IU per cap once a day, in addition to weight-bearing exercises to help maintain good muscle tone and weight control. Instructed to do self-breast exam, and continue with yearly mammogram, currently being followed by breast surgeon and Oncology due to history of breast cancer , currently on anastrozole.. She is up-to-date with her screening colonoscopy, due again in 2030 (2) Diabetes mellitus with hyperglycemia, without long-term current use of insulin: Code(s): E11.65 - Type 2 diabetes mellitus with hyperglycemia Category: Medical Qualifiers: Diabetes mellitus type: type 2 Qualified Code(s): E11.65 - Type 2 diabetes mellitus with hyperglycemia Plan: Currently on metformin, reminded patient to get her fasting labs done and to get her yearly diabetes retinopathy screening (3) Dyslipidemia: Code(s): E78.5 - Hyperlipidemia, unspecified Category: Medical Plan: Currently on rosuvastatin 20 mg daily, reminded patient to get her fasting labs done (4) Depression: Code(s): F32.A - Depression, unspecified Category: Medical Qualifiers: Depression Type: major depressive disorder Major depression recurrence: recurrent Active/Remission status: in partial remission Qualified Code(s): F33.41 - Major depressive disorder, recurrent, in partial remission Plan: Currently sees psychiatrist at [facility] (5) Bronchial asthma: Comment: well controlled Code(s): J45.909 - Unspecified asthma, uncomplicated Category: Medical Plan: Asthma well controlled (6) Essential hypertension: Code(s): I10 - Essential (primary) hypertension Category: Medical Plan: Blood pressure at goal of less than 130/80. Continue with current medication. Reinforced importance of following a low sodium diet, getting regular exercise, and lowering stress levels. (7) Vaccination refused by patient: Comment: declines Covid & flu vaccines per daughter Code(s): Z28.21 - Immunization not carried out because of patient refusal Category: Medical Plan: Patient does not want to get any vaccines
--- OUTSIDE RECORDS SUMMARY | 2024-12-01 15:01 | XMS_ITS | Encounter Summary ---
Author Organization [facility] Address [address] [facility] [address] [place] [address] Phone Care Team Providers Care Hot Mix Operator Name Role Phone Geneva Jenkins MD Primary Care Provider [phone]- [phone] Reason for Visit * Reason Comments Med Refill Encounter Details Date Type Department Care Team (Late Contact Info) Description 01/07/2023 Refill [facility] [address] [place] [address] Ambrosio Gilliland [...] Office Visit [facility] [address] [place] [address] Naga Henderson MD [address] [facility] [address] [place] [address] documented as of this encounter Visit Diagnoses Not on filedocumented in this encounter Care Teams Hot Mix Operator Relationship Specialty Start Date End Date Geneva Jenkins MD [address] [facility] [place] [address] PCP - General 10/03/20 07/21/23 documented as of this encounter
--- OUTSIDE RECORDS SUMMARY | 2024-12-01 15:01 | XMS_ITS | Clinical Summary ---
Author Organization [facility] Address [address] [address] [place] [address] Phone Care Team Providers Care Sausage Stringer Name Role Phone Unavailable Primary Care Provider [...] Visit [facility] the [address] [place] [address] Naga Henderson MD [address] [facility] [address] [place] [address] Health Maintenance Due Date Last [...] Most Recently Relevant to Health Maintenance Insurance [facility] DUAL COMPLETE ([id number]) Member Subscriber Plan / Payer (Ef fective 2019-Present) Name:Jessica Hicks Relation to Subscriber:Self Name:Jessica Hicks Payer ID:[id number] (NAIC) Group ID:Not on file Type:Not on file Address: [address] [id number] DUAL COMPLETE ([id number]) Member Subscriber Plan / Payer (Ef fective 2019-Present) Name:Jessica Hicks Relation to Subscriber:Self Name:Jessica Hicks Payer ID:[id number] (NAIC) Group ID:Not on file Type:Not on file Address: [place] [id number]
== END 2024-12-01 13:28 | disposition home or self-care (01) ==
LOC: HO.HMCC 12:27
PROVIDERS: PCP Internal Medicine; Visit Provider Internal Medicine
DX: Z00.00 Encounter for general adult medical examination without abnormal findings (principal); E11.65 Type 2 diabetes mellitus with hyperglycemia; F33.41 Major depressive disorder, recurrent, in partial remission; E78.5 Hyperlipidemia, unspecified; J45.909 Unspecified asthma, uncomplicated; I10 Essential (primary) hypertension; Z28.21 Immunization not carried out because of patient refusal

== ENCOUNTER → 2024-12-01 12:26 | Outpatient (BNVA) | payer OTHER, SELFPAY | PROVIDERS: PCP Internal Medicine; Visit Provider Internal Medicine | DX: Z00.01 Encounter for general adult medical examination with abnormal findings (principal); E11.65 Type 2 diabetes mellitus with hyperglycemia; E78.5 Hyperlipidemia, unspecified; F33.41 Major depressive disorder, recurrent, in partial remission; J45.909 Unspecified asthma, uncomplicated; I10 Essential (primary) hypertension | CPT/HCPCS: 99397 ==

== ENCOUNTER 2024-12-02 14:11 | Outpatient (REF) | payer OTHER, SELFPAY ==
--- NOTE | 2024-12-02 14:14 | EMG_ITS ---
Chief complaint: Bilateral hand numbness, trigger finger on the left, history of left Carpal Tunnel Syndrome surgery more than 15 years ago Reason for referral: Evaluate for Carpal Tunnel Syndrome Referred by: Melvin AYALA Procedure done: Bilateral upper extremities NCS/EMG Precautions and/or limitations: None The limb temperature was monitored continuously and remained between 32-36 degrees C during the performance of the NCS. Nerve Conduction Studies Anti Sensory Summary Table ?Stim Site NR Onset (ms) Norm Onset (ms) Peak (ms) Norm Peak (ms) O-P Amp (?V) Norm O-P Amp Site1 Site2 Delta-0 (ms) Dist (cm) Duane (m/s) Norm Duane (m/s) Left Median Anti Sensory (2nd Digit) Wrist ? 2.7 3.5 <3.6 37.3 >10 Wrist 2nd Digit 2.7 14.0 52 Right Median Anti Sensory (2nd Digit) Wrist ? 3.6 4.7 <3.6 12.1 >10 Wrist 2nd Digit 3.6 14.0 39 Right Radial Anti Sensory (Thumb) Forearm ? 1.7 2.3 <3.1 22.2 Forearm Thumb 1.7 0.0 Left Ulnar Anti Sensory (5th Digit) Wrist ? 2.2 3.0 <3.7 34.5 >15.0 Wrist 5th Digit 2.2 14.0 64 Right Ulnar Anti Sensory (5th Digit) Wrist ? 0.9 3.0 <3.7 22.7 >15.0 Wrist 5th Digit 0.9 14.0 156 Motor Summary Table ?Stim Site NR Onset (ms) Norm Onset (ms) O-P Amp (mV) Norm O-P Amp iAmp (mV) Amp (1st) (%) Site1 Site2 Delta-0 (ms) Dist (cm) Duane (m/s) Norm Duane (m/s) Left Median Motor (Abd Poll Brev) Wrist ? 3.5 <3.9 10.0 >4.5 12.6 100.0 Elbow Wrist 3.6 19.0 53 >45 Elbow ? 7.1 7.7 10.4 77.0 Right Median Motor (Abd Poll Brev) Wrist ? 4.7 <3.9 10.4 >4.5 12.8 100.0 Elbow Wrist 3.5 19.0 54 >45 Elbow ? 8.2 10.4 12.8 100.0 Left Ulnar Motor (Abd Dig Minimi) Wrist ? 2.8 <3.0 6.0 >5 7.4 100.0 B Elbow Wrist 3.1 18.0 58 >45 B Elbow ? 5.9 5.8 7.1 96.7 A Elbow B Elbow 1.1 10.0 91 >45 A Elbow ? 7.0 5.6 6.7 93.3 Right Ulnar Motor (Abd Dig Minimi) Wrist ? 2.8 <3.0 6.3 >5 7.6 100.0 B Elbow Wrist 3.0 16.5 55 >45 B Elbow ? 5.8 6.8 8.0 107.9 A Elbow B Elbow 1.3 10.0 77 >45 A Elbow ? 7.1 6.8 8.0 107.9 EMG ?Side Muscle Nerve Root Ins Act Fibs Psw Amp Dur Poly Recrt Int Pat Comment Right 1stDorInt Ulnar C8-T1 Nml Nml Nml Nml Nml 0 Nml Complete Right FlexCarRad Median C6-7 Nml Nml Nml Nml Nml 0 Nml Complete Right Biceps Musculocut C5-6 Nml Nml Nml Nml Nml 0 Nml Complete Right Triceps Radial C6-7-8 Nml Nml Nml Nml Nml 0 Nml Complete Right Deltoid Axillary C5-6 Nml Nml Nml Nml Nml 0 Nml Complete Left 1stDorInt Ulnar C8-T1 Nml Nml Nml Nml Nml 0 Nml Complete Left FlexCarRad Median C6-7 Nml Nml Nml Nml Nml 0 Nml Complete Left Biceps Musculocut C5-6 Nml Nml Nml Nml Nml 0 Nml Complete Left Triceps Radial C6-7-8 Nml Nml Nml Nml Nml 0 Nml Complete Left Deltoid Axillary C5-6 Nml Nml Nml Nml Nml 0 Nml Complete FINDINGS: Right median motor nerve showed prolonged distal latency, normal amplitude and normal conduction velocity. Right median sensory nerve showed prolonged peak latency. All other nerves tested were within normal. Concentric needle EMG was performed in selected muscles of the bilateral upper extremities. Study did not reveal signs of electric abnormalities as shown in the table above. IMPRESSION: 1. This is an abnormal study. 2. There is electrodiagnostic evidence for right moderate-severe median neuropathy at the wrist, consistent with carpal tunnel syndrome. 3. There is no electrodiagnostic evidence for ulnar neuropathy, brachial plexopathy, or cervical radiculopathy. 4. There is no electrodiagnostic evidence for median neuropathy on the left. Thank you for your kind referral. Dasha Islas MD, CARLO Board Certified, [place] Board of Physical Medicine and Rehabilitation (ABPMR) Board Certified, [place] Board of Electrodiagnostic Medicine (ABEM) CODIN [phone] x 2 MTDD
--- OUTSIDE RECORDS SUMMARY | 2024-12-02 16:46 | XMS_ITS | Clinical Summary ---
Author Organization [facility] Address [address] [facility] [address] [place] [address] Phone Care Team Providers Care Screen Printing Machine Loader Unloader Name Role Phone Unavailable Primary Care Provider [...] Visit [facility] [address] [place] [address] Naga Henderson MD [address] [facility] [address] [place] [address] Health Maintenance Due Date Last [...] Most Recently Relevant to Health Maintenance Insurance [facility] DUAL COMPLETE ([id number]) Member Subscriber Plan / Payer (Ef fective 2019-Present) Name:Jessica Hicks Relation to Subscriber:Self Name:Jessica Hicks Payer ID:[id number] (NAIC) Group ID:Not on file Type:Not on file Address: [id number] DUAL COMPLETE ([id number]) Member Subscriber Plan / Payer (Ef fective 2019-Present) Name:Jessica Hicks Relation to Subscriber:Self Name:Jessica Hicks Payer ID:[id number] (NAIC) Group ID:Not on file Type:Not on file Address: [place] [phone]
--- OUTSIDE RECORDS SUMMARY | 2024-12-02 16:46 | XMS_ITS | Encounter Summary ---
Author Organization [facility] Address [address] [facility] [address] [place] [address] Phone Care Team Providers Care Corporate Webmaster Name Role Phone Geneva Jenkins MD Primary Care Provider [phone]- [phone] Reason for Visit * Reason Comments Med Refill Encounter Details Date Type Department Care Team (Late Contact Info) Description 01/07/2023 Refill [facility] [address] [place] [address] Ambrosio Gilliland [...] Office Visit [facility] [address] [place] [address] Naga Henderson MD [address] [facility] [address] [place] [address] documented as of this encounter Visit Diagnoses Not on filedocumented in this encounter Care Teams Corporate Webmaster Relationship Specialty Start Date End Date Geneva Jenkins MD [address] [facility] [place] [address] PCP - General 10/03/20 07/21/23 documented as of this encounter
== END 2024-12-02 14:12 | disposition home or self-care (01) ==
LOC: HO.NEURO 14:11
PROVIDERS: PCP Internal Medicine
DX: R20.0 Anesthesia of skin (principal); R20.2 Paresthesia of skin
CPT/HCPCS: 95886; 95911

== ENCOUNTER → 2024-12-02 14:14 | Outpatient (BNV) | payer OTHER, SELFPAY | PROVIDERS: PCP Internal Medicine; Visit Provider Physical Medicine & Rehabilitation | DX: G56.01 Carpal tunnel syndrome, right upper limb (principal) | CPT/HCPCS: 95886; 95911 ==

== ENCOUNTER 2024-12-24 10:21 | Outpatient (REF) | payer OTHER, SELFPAY ==
--- OUTSIDE RECORDS SUMMARY | 2024-12-24 11:17 | XMS_ITS | Encounter Summary ---
Author Organization [facility] Address [address] [facility] [address] [place] [address] Phone Care Team Providers Care Resp Therapist Name Role Phone Geneva Jenkins MD Primary Care Provider [phone]- [phone] Reason for Visit * Reason Comments Med Refill Encounter Details Date Type Department Care Team (Late Contact Info) Description 01/07/2023 Refill [facility] [address] [place] [address] Ambrosio Gilliland [...] Office Visit [facility] [address] [place] [address] Naga Henderson MD [address] [facility] [address] [place] [address] documented as of this encounter Visit Diagnoses Not on filedocumented in this encounter Care Teams Resp Therapist Relationship Specialty Start Date End Date Geneva Jenkins MD 1959 [facility] [place] [address] PCP - General 10/03/20 07/21/23 documented as of this encounter
--- OUTSIDE RECORDS SUMMARY | 2024-12-24 11:17 | XMS_ITS | Clinical Summary ---
Author Organization [facility] Address [address] [place] [address] Phone Care Team Providers Care Double Needle Operator Name Role Phone Unavailable Primary Care Provider [...] Visit [facility] [address] [place] [address] Naga Henderson MD [address] [facility] [address] [place] [address] Health Maintenance Due Date Last [...] Most Recently Relevant to Health Maintenance Insurance [facility] ([id number]) Member Subscriber Plan / Payer (Ef fective 2019-Present) Name:Jessica Hicks Relation to Subscriber:Self Name:Jessica Hicks Payer ID:[id number] (NAIC) Group ID:Not on file Type:Not on file Address: [address] [id number] ([id number]) Member Subscriber Plan / Payer (Ef fective 2019-Present) Name:Jessica Hicks Relation to Subscriber:Self Name:Jessica Hicks Payer ID:[id number] (NAIC) Group ID:Not on file Type:Not on file Address: [place] [id number]
[2024-12-24 13:57] LABS: Estimated Average Glucose 163 mg/dL; Hemoglobin A1C 205.2008 umol/L; Hemoglobin A1c % 7.3 % (<6.0); Total Hemoglobin (HGBA1C) 3675.1135 umol/L
[2024-12-24 14:07] LABS: Alanine Aminotransferase 26 U/L (0-31); Anion Gap 14 (12-20); Aspartate Amino Transferase 39 U/L (5-31); Blood Urea Nitrogen 18 mg/dL (9-16); Calcium 10.3 mg/dL (8.4-10.2); Carbon Dioxide 24 mmol/L (22-29); Chloride 106 mmol/L (96-108); Cholesterol 135 mg/dL (<200); Estimated Glomerular Filt Rate > 60; Glucose Fasting 146 mg/dL (60-99); HDL Cholesterol 47 mg/dL (>40); LDL Cholesterol Calculated 68 mg/dL (<100); Potassium 4.2 mmol/L (3.3-5.1); Sodium 140 mmol/L (135-145); Triglycerides 101 mg/dL (<150)
[2024-12-24 14:15] LABS: Creatinine Urine 152.79 mg/dL
[2024-12-24 14:16] LABS: Vitamin D 25-OH Total 34.6 ng/mL (>30)
[2024-12-24 14:31] LABS: Microalbum/Creatinine Ratio Ur 836.4 ug/mg cr (<30)
== END 2024-12-24 10:22 | disposition home or self-care (01) ==
LOC: HO.HMGCLDS 10:21
PROVIDERS: PCP Internal Medicine; Visit Provider Internal Medicine
DX: E11.65 Type 2 diabetes mellitus with hyperglycemia (principal); E78.5 Hyperlipidemia, unspecified; I10 Essential (primary) hypertension; Z78.0 Asymptomatic menopausal state
CPT/HCPCS: 36415; 80048; 80061; 82043; 82306; 82570; 83036; 84450; 84460

== ENCOUNTER 2025-01-08 11:14 | Outpatient (AMB) | payer OTHER, SELFPAY ==
--- NOTE | 2025-01-08 11:11 | A.OFFPC_ITS ---
Intake Visit Reasons: blood work follow up Allergies shrimp Allergy (Mild, Verified 01/08/25 11:46) itch Medication List - Last Reconciled 01/08/25 by Kathia Jenkins MD albuterol sulfate 90 mcg/actuation 2 puffs inhalation Q4-6H PRN amlodipine 2.5 mg PO DAILY 30 days anastrozole (Arimidex) 1 mg PO DAILY blood sugar diagnostic (OneTouch Verio test strips) Test blood sugar twice a day blood-glucose meter (OneTouch Verio Flex Meter) Check fasting blood sugar twice a day before eating blood-glucose meter (OneTouch Verio Flex Meter) As directed bupropion HCl XL 300 mg PO QAM cholecalciferol (vitamin D3) 50 mcg PO DAILY diclofenac sodium 1% 2 grams topical QID duloxetine (Cymbalta) 20 mg PO BID duloxetine 60 mg PO QAM fluticasone propionate 110 mcg/actuation (Flovent HFA) 2 puffs PO BID lancets (OneTouch Delica Plus Lancet) Test blood sugar twice a day lorazepam 0.5 mg PO BID PRN losartan 100 mg PO DAILY meclizine 25 mg PO DAILY PRN metformin 500 mg PO BID metoprolol tartrate 25 mg PO BID pantoprazole 40 mg PO DAILY quetiapine 25 mg PO DAILY rosuvastatin 20 mg PO DAILY Tobacco use date assessed: 01/08/25 Fall risk assessment: No Falls in past year Last assessed Fall Risk: 01/08/25 Dental Screening Dental Screen Date: 01/08/25 Did you have a dental visit in the last 12 months?: Yes Did you have a dental problem in the last 6 months where you did not have access to dental care?: No Was dental information given to patient?: Patient has dentist HPI blood work follow up HPI Details 74-year-old lady with diabetes mellitus, hypertension and dyslipidemia here today for her follow-up. She has been compliant with taking her medications, currently on metformin 500 mg per tablet, 1 tablet taken twice a day but latest hemoglobin A1c is higher than last check at 7.3%. Patient states that she has been taking her medications, has been checking her blood sugars, which usually runs higher in the mornings and later during the day. She has been trying to adhere to recommended diet but has been stress eating as she is getting frustrated about not being able to get a new hearing aid approved by her insurance. She also has been sedentary for most of the winter time. Latest fasting labs however showed lipids and vitamin-D level are within normal limits . [facility] Medical History Vaccination refused by patient Bilateral finger arthralgia Trigger finger, left Carcinoma of left breast in female, estrogen receptor positive Hearing loss Diabetes mellitus with hyperglycemia, without long-term current use of insulin HX: breast cancer Depression Uses hearing aid Elevated cholesterol GERD (gastroesophageal reflux disease) Bronchial asthma Essential hypertension Surgical History Hx of eye surgery History of lumpectomy of left breast (11/28/22) History of breast lump/mass excision History of lumpectomy Hx of colonoscopy History of esophagogastroduodenoscopy (EGD) History of cholecystectomy Family History Father Diabetes mellitus Essential hypertension CVA (cerebral vascular accident) Dyslipidemia Mother Dyslipidemia CVA (cerebral vascular accident) Mother Mental health disorder Brother Mental health disorder Paternal Aunt Breast cancer Ovarian cancer Maternal Aunt Breast cancer Ovarian cancer Social History Housing: Apartment Are you a primary point of care technician to a significant other at home: No Do you presently have visiting nurse or other home services: No Alcohol intake: never Patient Tobacco Use Status: Never used Tobacco e-Cigarette/Vaping Use: Never Used Advance Directives Date on File: 11/08/22 service: No Current occupational status: disabled Cognitive needs: No Hearing needs: Yes Vision needs: Yes Questionnaire Thrive Questionnaire Date Thrive assessed: 12/01/24 YESICA-7 AMB Questionnaire YESICA-7 Date YESICA - 7 assessed: 12/01/24 Source: Developed by Drs. Cb Dickson, Echo Smart, Arcenio Barajas and colleagues, with an educational jeffrey from [employer]. Review of Systems Const Denies chills, Denies fever(s) and Denies weakness Eyes Details: Goes to [facility] for routine eye exam Reports no additional complaints ENT Reports as per HPI Card Denies chest pain, Denies irregular heart rhythm, Denies palpitations and Denies dyspnea Resp Denies cough, Denies excessive phlegm production and Denies dyspnea GI Reports no additional complaints Denies urinary frequency Musc Reports as per HPI, Denies back pain, Denies muscle weakness and Denies numbness Skin/Breast Reports system reviewed and no additional complaints, except as documented Neuro Denies numbness, Denies paresthesias and Denies weakness Psych Details: Followed by Marguerite Riggs at [facility] in [place] Reports no additional complaints Endo Denies palpitations Jaylen/Lymph Denies lymphadenopathy Aller/Immun Reports no additional complaints Physical exam (Primary Care) Tobacco/Smoking Status: Tobacco use Status Tobacco use date assessed 01/08/25 01/08/25 11:13 Patient Tobacco Use Status Never used Tobacco 01/08/25 11:13 e-Cigarette/Vaping Use Never Used 01/08/25 11:13 Thrive Assessment: Date of Thrive Assessment Date Thrive assessed 12/01/24 01/08/25 11:13 Telehealth Telehealth Telehealth Platform: [employer] ([employer]) Location of provider rendering services: practice address Location of patient: address on file Patient Identification confirmed using: Name, : Yes Telehealth method: video Patient verbally consented to treatment: Yes Patient verbally consented to billing insurance company: Yes Patient informed of any privacy concerns related to visit: Yes Minutes spent on Phone/Video with Pt.: 15 Results Reviewed Results Reviewed: Name: Jessica Hicks Age/Sex: 74/F : 1950 Unit#: [id number] Attend Dr: Kathia Jenkins MD Re12/24/24 Status: DEP REF Location: [facility] Disch: SPEC : [id number] JUAN M: 12/24/24 STATUS: COMP REQ : [id number] RECD: 12/24/24-[address]: Kathia Jenkins MD COMP: 12/24/24-1415 ENTERED: 12/24/24-[address]: ORDERED: Met Prof Fast, AST, ALT, Lipid Panel, Vitamin D 25-OH Test Result Flag Reference Sodium 140 135-145 mmol/L Potassium 4.2 3.3-5.1 mmol/L CL 106 96-108 mmol/L CO2 24 22-29 mmol/L Gap 14 12-20 BUN 18 H 9-16 mg/dL Creat 0.69 0.5-1.4 mg/dL eGFR > 60 Chronic Kidney Disease: Estimated GFR < 60 mL/min/1.73m2 Severe Kidney Disease: Estimated GFR < 15 mL/min/1.73m2 FBS 146 H 60-99 mg/dL A fasting glucose of 126 mg/dl or greater on more than one occasion is considered diagnostic of diabetes. CA 10.3 H 8.4-10.2 mg/dL AST (GOT) 39 H 5-31 U/L ALT (GPT) 26 0-31 U/L Triglyceride 101 <150 mg/dL Desirable Triglyceride: less than 150 mg/dL Borderline High Triglyceride 150-199 mg/dL High Triglyceride: 200-499 mg/dL Very High Triglyceride: greater than or equal to 5OO mg/dL Cholesterol 135 <200 mg/dL Desirable Cholesterol: less than 200 mg/dL Borderline High Cholesterol: 200-239 mg/dL High Cholesterol: greater than 239 mg/dL LDL Calculated 68 <100 mg/dL Desirable LDL: less than 100 mg/dL Near Optimal/Above Optimal LDL: 110-129 mg/dL Borderline High LDL: 130-159 mg/dL High LDL: 160-189 mg/dL Very High LDL: greater than or equal to 190 mg/dL HDL 47 >40 mg/dL Desirable HDL: greater than 40 mg/dL Note: This HDL assay may give artificially low results in patients with liver disease. Vitamin D 25-OH 34.6 >30 ng/mL Health Based Reference Values* < 20 ng/mL Deficient 20-30 ng/mL Insufficient > 30 ng/mL Sufficient Laboratory Tests 07/16/24 12/24/24 15:39 10:26 Estimat Average Glucose 163 Hgb A1c (Clinic) 7.2 H Hemoglobin A1c % 7.3 H Urine Creatinine 152.79 Urine Microalbumin 1278.0 Microalb/Creat Ratio 836.4 H Coding Level of Care Code Tele Est Pt Level 4 (92758) Complex EM visit Add On G2211 Diagnoses Type 2 diabetes mellitus with hyperglycemia, without long-term current use of insulin E11.65 Diabetes mellitus type: type 2 Dyslipidemia E78.5 Assessment & Plan Assessment & Plan (1) Diabetes mellitus with hyperglycemia, without long-term current use of insulin: Code(s): E11.65 - Type 2 diabetes mellitus with hyperglycemia Category: Medical Qualifiers: Diabetes mellitus type: type 2 Qualified Code(s): E11.65 - Type 2 diabetes mellitus with hyperglycemia Plan: Diabetes mellitus controlled slipping, with hemoglobin A1c at 7.3% now. Will increase her metformin dose to 500 mg in the morning with breakfast and increase to 750 mg at night with supper. Continue with checking blood sugar twice a day and may increase dose later on to 750 mg 1 tablet twice a day if fasting blood sugar still not averaging less than 130 mg/dL. Stressed importance of staying active, and following recommended diet. Up-to-date with her diabetes retinopathy screening (2) Dyslipidemia: Code(s): E78.5 - Hyperlipidemia, unspecified Category: Medical Plan: Fasting lipids are within normal limits, will continue on current dose of rosuvastatin 20 mg daily. Repeat fasting labs again in May 2025 to next appointment Orders: Orders Lipid Panel 05/24/25 E11.65 - Type 2 diabetes mellitus with hyperglycemia, E78.5 - Hyperlipidemia, unspecified Aspartate Amino Transferase 05/24/25 E11.65 - Type 2 diabetes mellitus with hyperglycemia, E78.5 - Hyperlipidemia, unspecified Basic Metabolic Panel Fasting 05/24/25 E11.65 - Type 2 diabetes mellitus with hyperglycemia, E78.5 - Hyperlipidemia, unspecified Hemoglobin A1c 05/24/25 E11.65 - Type 2 diabetes mellitus with hyperglycemia, E78.5 - Hyperlipidemia, unspecified Vitamin D 25-OH Total 05/24/25 E11.65 - Type 2 diabetes mellitus with hyperglycemia, E78.5 - Hyperlipidemia, unspecified Alanine Aminotransferase 05/24/25 E11.65 - Type 2 diabetes mellitus with hyperglycemia, E78.5 - Hyperlipidemia, unspecified Medications: New metformin ER 750 mg PO BID 180 tabs 2RF 3 months E11.65 - Type 2 diabetes mellitus with hyperglycemia Refilled rosuvastatin 20 mg PO DAILY 90 tabs 4RF metoprolol tartrate 25 mg PO BID 180 tabs 3RF losartan 100 mg PO DAILY 90 tabs 4RF Discontinued metformin Discontinued Reason: Doctor's Order 500 mg PO BID 180 tabs 1RF
--- OUTSIDE RECORDS SUMMARY | 2025-01-08 12:19 | XMS_ITS | Clinical Summary ---
Author Organization [facility] Address [address] [place] [address] Phone Care Team Providers Care Mainspring Winder And Oiler Name Role Phone Unavailable Primary Care Provider [...] Visit [facility] [address] [place] [address] Naga Henderson MD [address] [facility] [address] [place] [address] Health Maintenance Due Date Last Done Comments Breast Cancer Screening 1950 Pneumococcal Vaccine: 50+ Ye ars (1 of 2 - PCV) 02/13/1971 Colorectal Cancer Screening: Annual FOBT 02/13/2001 Colorectal Cancer Screening: Colonoscopy 02/13/2001 Colorectal Cancer Screening: Sigmoidoscopy 02/13/2001 Diabetes: Ophthalmology Exam 08/23/2023 Diabetes: Pedal Pulse Checked 08/23/2023 Diabetes: Sensory Foot Exam 08/23/2023 Diabetes: Visual Foot Exam 08/23/2023 Diabetes: Hemoglobin A1C 04/25/2024 01/24/2024 Influenza Vaccine (Season Ended) 2025 Hepatitis B Vaccine Aged Out No longe [...] Most Recently Relevant to Health Maintenance Insurance [facility] ([id number]) [facility] ([id number])
--- OUTSIDE RECORDS SUMMARY | 2025-01-08 12:19 | XMS_ITS | Encounter Summary ---
Author Organization [facility] Address [address] [facility] [address] [place] [address] Phone Care Team Providers Care Ammonia Distiller Name Role Phone Geneva Jenkins MD Primary Care Provider [phone]- [phone] Reason for Visit * Reason Comments Med Refill Encounter Details Date Type Department Care Team (Late Contact Info) Description 01/07/2023 [facility]ill [facility] [address] [place] [address] Ambrosio Gilliland [...] Office Visit [facility] [address] [place] [address] Naga Henderson MD [address] [facility] [address] [place] [address] documented as of this encounter Visit Diagnoses Not on filedocumented in this encounter Care Teams Ammonia Distiller Relationship Specialty Start Date End Date Geneva Jenkins MD 1959 [facility] [place] [address] PCP - General 10/03/20 07/21/23 documented as of this encounter
== END 2025-01-08 12:15 | disposition home or self-care (01) ==
LOC: HO.HMCC 11:14
PROVIDERS: PCP Internal Medicine; Visit Provider Internal Medicine
DX: E11.65 Type 2 diabetes mellitus with hyperglycemia (principal); E78.5 Hyperlipidemia, unspecified

== ENCOUNTER → 2025-01-08 11:14 | Outpatient (BNVA) | payer OTHER, SELFPAY | PROVIDERS: PCP Internal Medicine; Visit Provider Internal Medicine ==

== ENCOUNTER 2025-02-01 13:09 | Outpatient (AMB) | payer OTHER, SELFPAY ==
--- NOTE | 2025-02-01 13:12 | HO.NEPHOV_ITS ---
Vital Signs 02/01/25 13:13 02/01/25 13:24 Height 5 ft 2 in Weight 196 lb BMI 35.8 BP 142/82 H 130/78 Blood Pressure Location Lt brachial Lt brachial Position Sitting Sitting Pulse 64 Pulse Source Pulse Oximeter Pulse Oximetry (%) 96 Oxygen Delivery Method Room Air Intake Visit Reasons: Previous pt/ LVM Surgical Coordinator Required: No Accompanied by: Daughter Allergies shrimp Allergy (Mild, Verified 02/01/25 13:14) itch Medication List - Last Reconciled 02/01/25 by Richard Terrell MD albuterol sulfate 90 mcg/actuation 2 puffs inhalation Q4-6H PRN amlodipine 2.5 mg PO DAILY 30 days anastrozole (Arimidex) 1 mg PO DAILY blood sugar diagnostic (Steeplechase NetworksTouch Verio test strips) Test blood sugar twice a day blood-glucose meter (OneTouch Verio Flex Meter) Check fasting blood sugar twice a day before eating blood-glucose meter (OneTouch Verio Flex Meter) As directed bupropion HCl XL 300 mg PO QAM cholecalciferol (vitamin D3) 50 mcg PO DAILY diclofenac sodium 1% 2 grams topical QID duloxetine (Cymbalta) 20 mg PO BID duloxetine 90 mg PO DAILY fluticasone propionate 110 mcg/actuation (Flovent HFA) 2 puffs PO BID lancets (Steeplechase NetworksTouch Delica Plus Lancet) Test blood sugar twice a day lorazepam 0.5 mg PO BID PRN losartan 100 mg PO DAILY meclizine 25 mg PO DAILY PRN metformin ER 750 mg PO BID 3 months metoprolol tartrate 25 mg PO BID pantoprazole 40 mg PO DAILY quetiapine 25 mg PO DAILY rosuvastatin 20 mg PO DAILY HPI Comments Details: Elderly woman with a history of longstanding hypertension obesity. She is well known to me. Previously seen in 2021. She is here for further follow up options he is not happy with her current senior credit officer who was assigned to her. She was accompanied by her daughter today. She has is compliant with her medications. She is a history of breast cancer on the left. Currently on Arimidex for the last 3 years. [facility] Medical History Vaccination refused by patient Bilateral finger arthralgia Trigger finger, left Carcinoma of left breast in female, estrogen receptor positive Hearing loss Diabetes mellitus with hyperglycemia, without long-term current use of insulin HX: breast cancer Depression Uses hearing aid Elevated cholesterol GERD (gastroesophageal reflux disease) Bronchial asthma Essential hypertension Surgical History Hx of eye surgery History of lumpectomy of left breast (11/28/22) History of breast lump/mass excision History of lumpectomy Hx of colonoscopy History of esophagogastroduodenoscopy (EGD) History of cholecystectomy Family History Father Diabetes mellitus Essential hypertension CVA (cerebral vascular accident) Dyslipidemia Mother Dyslipidemia CVA (cerebral vascular accident) Mother Mental health disorder Brother Mental health disorder Paternal Aunt Breast cancer Ovarian cancer Maternal Aunt Breast cancer Ovarian cancer Social History Housing: Apartment Are you a primary workforce investment act career manager to a significant other at home: No Do you presently have visiting nurse or other home services: No Alcohol intake: never Patient Tobacco Use Status: Never used Tobacco e-Cigarette/Vaping Use: Never Used Advance Directives Date on File: 11/08/22 service: No Current occupational status: disabled Cognitive needs: No Hearing needs: Yes Vision needs: Yes Review of Systems Const Denies fever(s) and Denies weight loss Card Denies chest pain Resp Denies cough and Denies hemoptysis GI Denies abdominal pain, Denies diarrhea and Denies nausea Musc Denies back pain Neuro Denies focal weakness Physical Exam Vital Signs: Last Vital Signs Pulse 64 02/01/25 13:13 BP 130/78 02/01/25 13:24 Pulse Ox 96 02/01/25 13:13 Oxygen Delivery Method Room Air 02/01/25 13:13 BMI result Body Mass Index 35.8 Comfortable Neck supple no JVD. Lungs entry equal no rales. Heart S1-S2 heard no gallop or rub. Abdomen soft nontender. Neuro alert awake oriented. No asterixis. Extremities no edema. Results Reviewed Nephrology Results: Sodium 140 mmol/L (135-145) 12/24/24 Potassium 4.2 mmol/L (3.3-5.1) 12/24/24 Chloride 106 mmol/L (96-108) 12/24/24 Carbon Dioxide 24 mmol/L (22-29) 12/24/24 BUN 18 mg/dL (9-16) H 12/24/24 Creatinine 0.69 mg/dL (0.5-1.4) 12/24/24 Calcium 10.3 mg/dL (8.4-10.2) H 12/24/24 Urine Creatinine 152.79 mg/dL 12/24/24 Assessment & Plan Assessment & Plan (1) Essential hypertension: Code(s): I10 - Essential (primary) hypertension Category: Medical Plan Jessica has well-controlled hypertension in the setting of obesity. We discussed importance of weight loss and low-salt diet. I will continue the current regimen for now. Renal function stable We will monitor urine protein excretion along with serum creatinine. Mild elevation serum calcium. She is on vitamin-D. I will recheck calcium vitamin-D and intact PTH prior to her next visit. I have reassured her and we will be happy to follow her along with the team. Orders: Orders Comprehensive Met. Panel 6 Months I10 - Essential (primary) hypertension Parathyroid Hormone Intact 6 Months I10 - Essential (primary) hypertension Vitamin D 25-OH Total 6 Months I10 - Essential (primary) hypertension Total Protein Urine Random 6 Months I10 - Essential (primary) hypertension Complete Blood Count no Diff 6 Months I10 - Essential (primary) hypertension UA and rflx microscopic 6 Months I10 - Essential (primary) hypertension Creatinine Urine 6 Months I10 - Essential (primary) hypertension Coding Level of Care Code Est Pt Level 4 (90579) Diagnoses Essential hypertension I10
[2025-02-01 13:13] VITALS: BP 142/82; PULSE 64; O2SAT 96; BMI 35.8
[2025-02-01 13:24] VITALS: BP 130/78
--- OUTSIDE RECORDS SUMMARY | 2025-02-01 13:28 | XMS_ITS | Encounter Summary ---
Author Organization [facility] Address [address] [facility] [address] [place] [address] Phone Care Team Providers Care List Of First Job Ideas Name Role Phone Geneva Jenkins MD Primary Care Provider [phone]- [phone] Reason for Visit * Reason Comments Med Refill Encounter Details Date Type Department Care Team (Late Contact Info) Description 01/07/2023 [facility]ill [facility] [address] [place] [address] Ambrosio Gilliland [...] Office Visit [facility] [address] [place] [address] Naga Henderson MD [address] [facility] [address] [place] [address] documented as of this encounter Visit Diagnoses Not on filedocumented in this encounter Care Teams List Of First Job Ideas Relationship Specialty Start Date End Date Geneva Jenkins MD 1959 [facility] [place] [address] PCP - General 10/03/20 07/21/23 documented as of this encounter
--- OUTSIDE RECORDS SUMMARY | 2025-02-01 13:28 | XMS_ITS | Clinical Summary ---
Author Organization [facility] Address [address] [place] [address] Phone Care Team Providers Care Tube Closing Machine Operator Name Role Phone Unavailable Primary Care [...] Visit [facility] [address] [place] [address] Naga Henderson MD [address] [facility] [address] [place] [address] Health Maintenance Due Date Last [...] Most Recently Relevant to Health Maintenance Insurance [facility] ([id number]) [facility] ([id number])
== END 2025-02-01 15:14 | disposition home or self-care (01) ==
LOC: HO.HKA 13:10
PROVIDERS: PCP Internal Medicine; Visit Provider Internal Medicine Hypertension Specialist
DX: I10 Essential (primary) hypertension (principal)
CPT/HCPCS: 99214

== ENCOUNTER → 2025-02-01 13:09 | Outpatient (BNVA) | payer OTHER, SELFPAY | PROVIDERS: PCP Internal Medicine; Visit Provider Internal Medicine Hypertension Specialist | DX: I10 Essential (primary) hypertension (principal); E66.9 Obesity, unspecified; Z68.35 Body mass index [BMI] 35.0-35.9, adult | CPT/HCPCS: 99212 ==

== ENCOUNTER 2025-02-08 15:31 | Outpatient (AMB) | payer OTHER, SELFPAY ==
[2025-02-08 15:34] VITALS: BMI 35.8
--- NOTE | 2025-02-08 15:34 | A.OFFVIS_ITS ---
Vital Signs 02/08/25 15:34 Height 5 ft 2 in Weight 196 lb BMI 35.8 Intake Visit Reasons: OV - B/L hand EMG review Intake Note: Jessica is a 74 year old right hand dominant female who presents today for an EMG review of bilateral upper extremities. IMPRESSION: 1. This is an abnormal study. 2. There is electrodiagnostic evidence for right moderate-severe median neuropathy at the wrist, consistent with carpal tunnel syndrome. 3. There is no electrodiagnostic evidence for ulnar neuropathy, brachial plexopathy, or cervical radiculopathy. 4. There is no electrodiagnostic evidence for median neuropathy on the left. Allergies shrimp Allergy (Mild, Verified 02/08/25 15:44) itch HPI HPI OV - B/L hand EMG review : Details: Jessica is a 74 year old right hand dominant female who presents today for an EMG review of bilateral upper extremities. Patient states that she had originally decided to proceed with left middle finger trigger release at previous visit, but states that upon further reflection she wanted to hold off on surgery at thi s time. IMPRESSION: 1. This is an abnormal study. 2. There is electrodiagnostic evidence for right moderate-severe median neuropathy at the wrist, consistent with carpal tunnel syndrome. 3. There is no electrodiagnostic evidence for ulnar neuropathy, brachial plexopathy, or cervical radiculopathy. 4. There is no electrodiagnostic evidence for median neuropathy on the left. [facility] Medical History Vaccination refused by patient Bilateral finger arthralgia Trigger finger, left Carcinoma of left breast in female, estrogen receptor positive Hearing loss Diabetes mellitus with hyperglycemia, without long-term current use of insulin HX: breast cancer Depression Uses hearing aid Elevated cholesterol GERD (gastroesophageal reflux disease) Bronchial asthma Essential hypertension Surgical History Hx of eye surgery History of lumpectomy of left breast (11/28/22) History of breast lump/mass excision History of lumpectomy Hx of colonoscopy History of esophagogastroduodenoscopy (EGD) History of cholecystectomy Family History Father Diabetes mellitus Essential hypertension CVA (cerebral vascular accident) Dyslipidemia Mother Dyslipidemia CVA (cerebral vascular accident) Mother Mental health disorder Brother Mental health disorder Paternal Aunt Breast cancer Ovarian cancer Maternal Aunt Breast cancer Ovarian cancer Social History Housing: Apartment Are you a primary day care home provider to a significant other at home: No Do you presently have visiting nurse or other home services: No Alcohol intake: never Patient Tobacco Use Status: Never used Tobacco e-Cigarette/Vaping Use: Never Used Advance Directives Date on File: 11/08/22 service: No Current occupational status: disabled Cognitive needs: No Hearing needs: Yes Vision needs: Yes Review of Systems Const All systems reviewed & are unremarkable except as noted in HPI and below Physical Exam Vital Signs: BMI result Body Mass Index 35.8 Extrem Other: Neuro: Normal sensation of the tips of all digits of bilateral hands in the office today No thenar or intrinsic wasting. Good APB muscle firing and good finger cross. Vascular: Capillary refill brisk. ROM: Patient can make a fist and extend all their digits. There is visible and palpable locking and catching of the left ring finger Pain with resisted flexion of bilateral wrists Skin: No lacerations or abrasions noted. General: No ecchymosis. No erythema or evidence of infection. Assessment & Plan Assessment & Plan (1) Trigger finger, left: Code(s): M65.30 - Trigger finger, unspecified finger Category: Medical Qualifiers: Trigger finger location: ring finger Qualified Code(s): M65.342 - Trigger finger, left ring finger (2) Right carpal tunnel syndrome: Code(s): G56.01 - Carpal tunnel syndrome, right upper limb Category: Medical Plan 1. Carpal tunnel syndrome, right Symptoms intermittent, daily, worse at night I educated the patient about the condition. I discussed both operative and nonoperative treatment options. The patient would like to proceed with surgery. The risks and benefits of operative treatment were discussed with the patient and the patient wishes to proceed with surgery. These risks include, but are not limited to, risk of damage to blood vessels, nerves, tendons, infection, recurrence, incomplete relief of preoperative symptoms, persistent pain, possible need for further surgery, and the risks associated with regional blocks and/or anesthesia. Plan is to take the patient to the operating room at some point in the next few weeks for the following procedures: 1. Right carpal tunnel release under local All of the preoperative paperwork including the consent was discussed today. All of the patient's questions were answered in the clinic today. The patient understands that they will be in contact with our operating room surgical technician to discuss scheduling their procedure. Patient reports diabetes, last A1c 7.2 Denies blood thinners, asthma, heart issues, lung issues, kidney issues, or current smoking. 2. Trigger finger, left ring finger Patient would like to proceed with operative intervention for right carpal tunnel syndrome prior to any intervention for left ring finger trigger finger Patient is advised that if she is recovering well postoperatively from her carpal tunnel release, we can sign up her left hand for trigger finger release Patient is amenable to this plan Follow-up prior to surgery if greater than 3 months from now, sooner with any acute concerns Coding Level of Care Code Est Pt Level 4 (59356) Diagnoses Trigger ring finger of left hand M65.342 Trigger finger location: ring finger Right carpal tunnel syndrome G56.01
--- OUTSIDE RECORDS SUMMARY | 2025-02-08 15:35 | XMS_ITS | Encounter Summary ---
Author Organization [facility] Address [address] [facility] [address] [place] [address] Phone Care Team Providers Care Rn Medication Name Role Phone Geneva Jenkins MD Primary Care Provider [phone] Reason for Visit * Reason Comments Med Refill Encounter Details Date Type Department Care Team (Late Contact Info) Description 01/07/2023 [facility]ill [facility] [address] [place] [address] Ambrosio Gilliland [...] Office Visit [facility] [address] [place] [address] Naga Henderson MD [address] [facility] [address] [place] [address] documented as of this encounter Visit Diagnoses Not on filedocumented in this encounter Care Teams Rn Medication Relationship Specialty Start Date End Date Geneva Jenkins MD [address] [facility] [place] [address] PCP - General 10/03/20 07/21/23 documented as of this encounter
--- OUTSIDE RECORDS SUMMARY | 2025-02-08 15:35 | XMS_ITS | Clinical Summary ---
Author Organization [facility] Address [address] [place] [address] Phone Care Team Providers Care Recruiting Assistant Name Role Phone Unavailable Primary Care Provider [...] Visit [facility] [address] [place] [address] Naga Henderson MD [address] [facility] [address] [place] [address] Health Maintenance Due Date Last [...] Most Recently Relevant to Health Maintenance Insurance [facility] ([id number]) [facility] ([id number])
== END 2025-02-08 16:00 | disposition home or self-care (01) ==
LOC: HO.HOS 15:32
PROVIDERS: PCP Internal Medicine
DX: M65.342 Trigger finger, left ring finger (principal); G56.01 Carpal tunnel syndrome, right upper limb
CPT/HCPCS: 99214

== ENCOUNTER → 2025-02-08 15:31 | Outpatient (BNVA) | payer OTHER, SELFPAY | PROVIDERS: PCP Internal Medicine | DX: M65.342 Trigger finger, left ring finger (principal); G56.01 Carpal tunnel syndrome, right upper limb | CPT/HCPCS: 99212 ==

== ENCOUNTER 2025-03-02 14:07 | Outpatient (AMB) | payer OTHER, SELFPAY ==
--- NOTE | 2025-03-02 14:18 | A.OFFVIS_ITS ---
Vital Signs 3 03/02/25 14:33 Height 5 ft 2 in Weight 197 lb 4 oz BMI 36.1 BP 189/94 H Blood Pressure Location Lt brachial Position Sitting Pulse 68 Intake Visit Reasons: 6 month follow up, breast exam Intake Note: Patient is seen in office for 6 month follow up visit, breast exam. Pt c/o: left breast pain comes and goes, stabbing, denies lump, bump or other concerns mm:11/11/24 Printer Technician Required: No Smoking Pipe Mounter: Smoking Pipe Mounter Present Accompanied by: Self / Same As Patient Allergies shrimp Allergy (Mild, Verified 03/02/25 14:29) itch Medication List - Last Reconciled 03/02/25 by Quinn Matias MD albuterol sulfate 90 mcg/actuation 2 puffs inhalation Q4-6H PRN amlodipine 2.5 mg PO DAILY 30 days anastrozole (Arimidex) 1 mg PO DAILY blood sugar diagnostic (OneTouch Verio test strips) Test blood sugar twice a day blood-glucose meter (OneTouch Verio Flex Meter) Check fasting blood sugar twice a day before eating blood-glucose meter (OneTouch Verio Flex Meter) As directed bupropion HCl XL 300 mg PO QAM cholecalciferol (vitamin D3) 50 mcg PO DAILY diclofenac sodium 1% 2 grams topical QID duloxetine (Cymbalta) 20 mg PO BID duloxetine 90 mg PO DAILY fluticasone propionate 110 mcg/actuation (Flovent HFA) 2 puffs PO BID lancets (OneTouch Delica Plus Lancet) Test blood sugar twice a day lorazepam 0.5 mg PO BID PRN losartan 100 mg PO DAILY meclizine 25 mg PO DAILY PRN metformin ER 750 mg PO BID 3 months metoprolol tartrate 25 mg PO BID pantoprazole 40 mg PO DAILY quetiapine 25 mg PO DAILY rosuvastatin 20 mg PO DAILY HPI Comments Details: 75-year-old female patient found to have a left breast T1 N0 MX invasive carcinoma with solid papillary, ductal and lobular features, 1 cm, grade 2, ER/WV positive, HER2 Radha negative, high proliferation. She underwent a left breast lumpectomy with LOCalizer localization, sentinel node biopsy on 11/05/2022. Pathology revealed a 1 cm, grade 2 invasive carcinoma as noted above. Two sentinel nodes were negative for metastatic disease. The margins were found to have positive margins at the skin and she was subsequently returned to the OR on 11/28/2022 for partial excision of the left breast skin, nipple-areolar complex. She reports feeling well today with no particular breast symptoms at this time. She was evaluated by Dr. North and started on Arimidex, which she is tolerating well. Oncotype testing revealed a score of 10. She was evaluated by radiation oncology at [facility] and decision made to forego radiation therapy. Yearly mammogram performed on 11/11/2024 revealed postoperative changes of the left breast but no mammographic evidence of malignancy (BI-RADS 2). [facility] Medical History Vaccination refused by patient Bilateral finger arthralgia Trigger finger, left Carcinoma of left breast in female, estrogen receptor positive Hearing loss Diabetes mellitus with hyperglycemia, without long-term current use of insulin HX: breast cancer Depression Uses hearing aid Elevated cholesterol GERD (gastroesophageal reflux disease) Bronchial asthma Essential hypertension Surgical History Hx of eye surgery History of lumpectomy of left breast (11/28/22) History of breast lump/mass excision History of lumpectomy Hx of colonoscopy History of esophagogastroduodenoscopy (EGD) History of cholecystectomy Family History Father Diabetes mellitus Essential hypertension CVA (cerebral vascular accident) Dyslipidemia Mother Dyslipidemia CVA (cerebral vascular accident) Mother Mental health disorder Brother Mental health disorder Paternal Aunt Breast cancer Ovarian cancer Maternal Aunt Breast cancer Ovarian cancer Social History Housing: Apartment Are you a primary foster care worker to a significant other at home: No Do you presently have visiting nurse or other home services: No Alcohol intake: never Patient Tobacco Use Status: Never used Tobacco e-Cigarette/Vaping Use: Never Used Advance Directives Date on File: 11/08/22 service: No Current occupational status: disabled Cognitive needs: No Hearing needs: Yes Vision needs: Yes Review of Systems Const All systems reviewed & are unremarkable except as noted in HPI and below Denies chills, Denies fever(s), Denies headache(s), Denies poor appetite and Denies weakness ENT Denies headache(s) Card Denies chest pain, Denies irregular heart rhythm, Denies palpitations and Denies dyspnea Resp Denies cough, Denies excessive phlegm production and Denies dyspnea GI Denies abdominal pain, Denies bloating, Denies change in bowel habits, Denies constipation, Denies heartburn, Denies diarrhea, Denies nausea and Denies vomiting Denies urinary frequency Musc Denies back pain, Denies muscle weakness and Denies numbness Skin/Breast Denies changing lesions and Denies unusual bruising Neuro Denies headache(s), Denies numbness, Denies paresthesias and Denies weakness Psych Denies anxiety and Denies depression Endo Denies palpitations Jaylen/Lymph Denies lymphadenopathy Physical Exam Vital Signs: Last Vital Signs Pulse 68 03/02/25 14:33 BP 189/94 H 03/02/25 14:33 BMI result Body Mass Index 36.1 Const General: cooperative and no acute distress Nutritional Appearance: well nourished Orientation/consciousness: patient oriented x3 Limitations: no limitations HEENT Head: Yes normocephalic and Yes atraumatic Ears: hearing grossly normal bilaterally Chest Other: Left breast incision in the periareolar location is clean, dry, and intact. Incision is soft with no hematoma or seroma. Mild tenderness to deep palpation. No new palpable mass, skin change, nipple retraction, nipple discharge, or enlarged lymph nodes. Left axillary incision is clean, dry, and intact as well. Right breast: No skin change, nipple discharge, palpable mass, or enlarged lymph nodes. Mild tenderness near the nipple-areolar complex with no palpable changes. Chest/axillae images: 2 1. Resp Effort & Inspection: normal respiratory effort, no audible wheezes, no cough and no respiratory distress Cardio Jugular venous distension: no JVD GI Inspection: Yes normal to inspection Skin Other: Warm, dry, no rash Neuro Other: Mobility Assessment: 1. 3 meter assessment time (seconds) 7 2. Gait observations: Normal balance and gait General: patient oriented x3 Extrem General: Yes no clubbing, cyanosis or edema Assessment & Plan Assessment & Plan (1) Carcinoma of left breast in female, estrogen receptor positive: Code(s): C50.912 - Malignant neoplasm of unspecified site of left female breast; Z17.0 - Estrogen receptor positive status [ER+] Category: Medical Qualifiers: Breast location: lower inner quadrant of breast Qualified Code(s): C 50.312 - Malignant neoplasm of lower-inner quadrant of left female breast; Z17.0 - Estrogen receptor positive status [ER+] Plan 75-year-old female patient diagnosed with infiltrating carcinoma with papillary and ductal features left breast status post left breast lumpectomy with localizer and sentinel node biopsy on 11/05/2022. Skin margins were positive therefore she returned on 11/28/2022 for wider excision including nipple-areolar complex. She is currently on Arimidex and tolerating this well without any particular side effects. She continues her follow-up with Dr. North. She was evaluated by radiation oncology at [facility] and the decision made to forego radiation therapy. Her most recent mammogram on 11/11/2024 revealed no mammographic evidence of malignancy (BI-RADS 2). Examination today revealed no suspicious findings in either breast. I recommended follow-up in 6 months. Coding Level of Care Code Est Pt Level 3 (09632) Complex EM visit Add On G2211 Diagnoses Carcinoma of lower-inner quadrant of left breast in female, estrogen receptor positive C50.312; Z17.0 Breast location: lower inner quadrant of breast
[2025-03-02 14:33] VITALS: BP 189/94; PULSE 68; BMI 36.1
--- OUTSIDE RECORDS SUMMARY | 2025-03-02 16:56 | XMS_ITS | Encounter Summary ---
Author Organization [facility] Address [address] [place] [address] Phone Care Team Providers Care Arbor Press Operator Name Role Phone Geneva Jenkins MD Primary Care Provider [phone]- [phone] Reason for Visit * Reason Comments Med Refill Encounter Details Date Type Department Care Team (Late st Contact Info) Description 01/07/2023 Refill [facility] [address] [place] [address] Ambrosio Gilliland MD Social History [...] as of this encounter Plan of Treatment Not on file documented as of this encounter Visit Diagnoses Not on filedocumented in this encounter Care Teams Arbor Press Operator Relationship Specialty Start Date End Date Geneva Jenkins MD [address] [facility] [place] [address] PCP - General 10/03/20 07/21/23 documented as of this encounter
== END 2025-03-02 14:45 | disposition home or self-care (01) ==
LOC: HO.HGS 14:08
PROVIDERS: PCP Internal Medicine; Visit Provider Surgery
DX: C50.312 Malignant neoplasm of lower-inner quadrant of left female breast (principal); Z17.0 Estrogen receptor positive status [ER+]
CPT/HCPCS: 99213; G2211

== ENCOUNTER → 2025-03-02 14:07 | Outpatient (BNVA) | payer OTHER, SELFPAY | PROVIDERS: PCP Internal Medicine; Visit Provider Surgery | DX: C50.312 Malignant neoplasm of lower-inner quadrant of left female breast (principal); Z17.0 Estrogen receptor positive status [ER+] | CPT/HCPCS: 99212 ==

== ENCOUNTER 2025-06-10 13:44 | Outpatient (AMB) | payer OTHER, SELFPAY ==
--- NOTE | 2025-06-10 14:01 | A.OFFPC_ITS ---
Vital Signs 06/10/25 14:05 Height 5 ft 2 in Weight 196 lb BMI 35.8 BP 130/80 Blood Pressure Location Rt brachial Position Sitting Respiration 16 Pulse 65 Pulse Source Pulse Oximeter Temp 97.9 F Temp Source Oral Pulse Oximetry (%) 95 Oxygen Delivery Method Room Air Intake Visit Reasons: 6m f/u Intake Note: Pt is here today for her 6mo. f/u Allergies shrimp Allergy (Mild, Verified 06/10/25 14:23) itch Medication List - Last Reconciled 06/10/25 by Kathia Jenkins MD albuterol sulfate 90 mcg/actuation 2 puffs inhalation Q4-6H PRN amlodipine 2.5 mg PO DAILY 30 days anastrozole (Arimidex) 1 mg PO DAILY blood sugar diagnostic ([employer] Verio test strips) Test blood sugar twice a day blood-glucose meter ([employer] Verio Flex Meter) Check fasting blood sugar twice a day before eating blood-glucose meter (OneTouch Verio Flex Meter) As directed bupropion HCl XL 300 mg PO QAM cholecalciferol (vitamin D3) 50 mcg PO DAILY diclofenac sodium 1% 2 grams topical QID duloxetine 90 mg PO DAILY fluticasone propionate 110 mcg/actuation (Flovent HFA) 2 puffs PO BID lancets ([employer] GR[employer]PTouch Delica Plus Lancet) Test blood sugar twice a day lorazepam 0.5 mg PO BID PRN losartan 100 mg PO DAILY meclizine 25 mg PO DAILY PRN metformin ER 750 mg PO BID 3 months metoprolol tartrate 25 mg PO BID pantoprazole 40 mg PO DAILY quetiapine 25 mg PO DAILY rosuvastatin 20 mg PO DAILY Tobacco use date assessed: 06/10/25 Fall risk assessment: No Falls in past year Last assessed Fall Risk: 06/10/25 Dental Screening Dental Screen Date: 06/10/25 Did you have a dental visit in the last 12 months?: Yes Did you have a dental problem in the last 6 months where you did not have access to dental care?: Yes Was dental information given to patient?: Patient has dentist HPI 6m f/u HPI Details -75 year-old lady with diabetes mellitus , hypertension and dyslipidemia here today for her follow-up. [facility] Medical History Vaccination refused by patient Bilateral finger arthralgia Trigger finger, left Carcinoma of left breast in female, estrogen receptor positive Hearing loss Diabetes mellitus with hyperglycemia, without long-term current use of insulin HX: breast cancer Depression Uses hearing aid Elevated cholesterol GERD (gastroesophageal reflux disease) Bronchial asthma Essential hypertension Surgical History Hx of eye surgery History of lumpectomy of left breast (11/28/22) History of breast lump/mass excision History of lumpectomy Hx of colonoscopy History of esophagogastroduodenoscopy (EGD) History of cholecystectomy Family History Father Diabetes mellitus Essential hypertension CVA (cerebral vascular accident) Dyslipidemia Mother Dyslipidemia CVA (cerebral vascular accident) Mother Mental health disorder Brother Mental health disorder Paternal Aunt Breast cancer Ovarian cancer Maternal Aunt Breast cancer Ovarian cancer Social History Housing: Apartment Are you a primary ocular care technician to a significant other at home: No Do you presently have visiting nurse or other home services: No Alcohol intake: never Patient Tobacco Use Status: Never used Tobacco e-Cigarette/Vaping Use: Never Used Advance Directives Date on File: 11/08/22 service: No Current occupational status: disabled Cognitive needs: No Hearing needs: Yes Vision needs: Yes Questionnaire PHQ-9 Over the last 2 weeks, how often have you been bothered by any of the following problems? 1. Little interest or pleasure in doing things: not at all 2. Feeling down, depressed, or hopeless: more than half the days 3. Trouble falling or staying asleep, or sleeping too much: more than half the days 4. Feeling tired or having little energy: several days 5. Poor appetite or overeating: not at all 6. Feeling bad about yourself - or that you are a failure or have let yourself or your family down: more than half the days 7. Trouble concentrating on things, such as reading the newspaper or watching television: more than half the days 8. Moving or speaking so slowly that other people could have noticed. Or the opposite - being so fidgety or restless that you have been moving around a lot more than usual: not at all 9. Thoughts that you would be better off or of hurting yourself in some way: not at all Total score: 9 Depression Screening Interpretation: Negative Depression Screening Done: Yes Source: Developed by Drs. Cb Dickson, Echo Smart, Arcenio Barajas and colleagues, with an educational jeffrey from [employer]. Thrive Questionnaire Date Thrive assessed: 12/01/24 I am a: Patient What is your living situation today?: I have a steady place to live Within the past 12 months, did the food you bought not last and you didn't have the money to get more?: Never true Within the past 12 months, did you worry whether your food would run out before you got money to buy more?: Sometimes True Do you have trouble paying for medicines?: No Do you have trouble getting transportation to medical appointments?: No Do you have trouble paying your heating and electricity bill?: No Do you have trouble taking care of your child, family member or friend?: No Do you have trouble with day-to-day activities such as bathing, preparing meals, shopping, managing finances, etc.?: No Are you currently unemployed and looking for a job?: No Are you interested in more education?: No Please select the resources that you would like help with: None Currently or been in a relationship where the following occur: No concerns reported THRIVE Score: 1 AUDIT C Alcohol Use Questionnaire (AUDIT-C) 1. How often do you have a drink containing alcohol?: Never Total Score: 0 YESICA-7 AMB Questionnaire YESICA-7 Date YESICA - 7 assessed: 12/01/24 Source: Developed by Drs. Cb Dickson, Echo Smart, Arcenio Barajas and colleagues, with an educational jeffrey from [employer]. Review of Systems Eyes Details: Goes to [facility] [place] for her routine eye exam, has appointment already scheduled ENT Details: Recurrent episodes of dizziness, has an appointment with the ENT already scheduled , has unequal hearing, unable to put hearing aid in right ear due to pain Physical exam (Primary Care) Vital Signs: Last Vital Signs Temp 97.9 F 06/10/25 14:05 Pulse 65 06/10/25 14:05 Resp 16 06/10/25 14:05 BP 130/80 06/10/25 14:05 Pulse Ox 95 06/10/25 14:05 Oxygen Delivery Method Room Air 06/10/25 14:05 BMI result Body Mass Index 35.8 Tobacco/Smoking Status: Tobacco use Status Tobacco use date assessed 06/10/25 06/10/25 14:11 Patient Tobacco Use Status Never used Tobacco 06/10/25 14:02 e-Cigarette/Vaping Use Never Used 06/10/25 14:02 PHQ-9: PHQ-9 Score PHQ-9: Total score 9 06/10/25 14:27 Depression Screening Interpretation: Negative Thrive Assessment: Date of Thrive Assessment Date Thrive assessed 12/01/24 06/10/25 14:02 Currently or been in a relationship where the following occur: No concerns reported Results AMB Hemoglobin A1c AMB Hemoglobin A1c 7.0 % Last Edit by Cony Welsh CMA on 06/10/25 14:27 Results Reviewed Results Reviewed: Laboratory Last Values Hgb A1c (Clinic) 7.0 % (4.0-6.0) H 06/10/25 14:26 Coding Assessment & Plan Assessment & Plan Orders: Orders AMB Hemoglobin A1c Today E11.65 - Type 2 diabetes mellitus with hyperglycemia Medications: Changed From fluticasone propionate 110 mcg/actuation (Flovent HFA) 2 puffs PO BID 36 grams 1RF J45.909 - Unspecified asthma, uncomplicated To fluticasone propionate 110 mcg/actuation 2 puffs PO BID 36 grams 5RF J45.909 - Unspecified asthma, uncomplicated Refilled albuterol sulfate 90 mcg/actuation 2 puffs inhalation Q4-6H PRN 8.5 grams 2RF Wheezing
[2025-06-10 14:05] VITALS: BP 130/80; PULSE 65; RESP 16; TEMP 36.6; O2SAT 95; BMI 35.8
--- OUTSIDE RECORDS SUMMARY | 2025-06-10 15:45 | XMS_ITS | Encounter Summary ---
Author Organization [facility] Address [address] [place] [address] Phone Care Team Providers Care Bridal Consultant Name Role Phone Geneva Jenkins MD Primary Care Provider [phone]- [phone] Reason for Visit * Reason Comments Med Refill Encounter Details Date Type Department Care Team (Late st Contact Info) Description 01/07/2023 Refill [facility] [address] [place] [address] Ambrosio Gilliland MD Social History [...] on filedocumented in this encounter Care Teams Bridal Consultant Relationship Specialty Start Date End Date Geneva Jenkins MD [address] [place] [address] PCP - General 10/03/20 07/21/23 documented as of this encounter
--- OUTSIDE RECORDS SUMMARY | 2025-06-10 15:45 | XMS_ITS | Clinical Summary ---
Author Organization [facility] Address [address] [place] [address] Phone Care Team Providers Care Packerhead Machine Operator Name Role Phone Unavailable Primary [...] 01/14/2023 1:11 PM EDT Plan of Treatment Health Maintenance Due Date Last Done Comments [...] Hemoglobin A1C 04/25/2024 01/24/2024 Influenza Vaccine (#1) 2025 Hepatitis B Vaccine Aged Out No [...] Most Recently Relevant to Health Maintenance Insurance [facility] ([id number]) [place] [address] [facility] ([id number]) [place] [address]
--- OUTSIDE RECORDS SUMMARY | 2025-06-10 15:47 | XMS_ITS | Clinical Summary ---
Author Organization [facility] Address [address] [place] [address] Phone Care Team Providers Care Health Screener Name Role Phone Kathia Jenkins MD Primary Care Provider Allergies Active Allergy Reactions Criticality Noted Date Comments Shrimp Hives,Itching 01/25/2023 Medications albuterol 90 mcg/actuation inhaler INHALE 2 PUFFS EVERY 4 TO 6 HOURS NEEDED FOR WHEEZING 11/08/2022 Active amLODIPine (NORVASC) 2.5 MG tablet Take 2.5 mg by mouth every evening. 01/09/2023 Active cholecalciferol , vitamin D3, 25 mcg (1,000 unit) capsule Take 1 capsule by mouth. Active DULoxetine (CYMBALTA) 30 MG capsule TAKE 1 CAPSULE BY MOUTH EVERY MORNING WITH 60MG CAP FOR A TOTAL OF 90MG 01/02/2023 Active LORazepam (ATIVAN) 0.5 MG tablet Take 0.5 mg by mouth 2 (two) times a day as needed. 11/06/2022 Active metoprolol tartrate (LOPRESSOR) 25 MG tablet Take 25 mg by mouth 2 (two) times a day. 10/29/2022 Active losartan (COZAAR) 100 MG tablet Take 100 mg by mouth daily. 12/21/2022 Active pantoprazole (PROTONIX) 40 MG tablet Take 40 mg by mouth daily. 01/02/2023 Active QUEtiapine (SEROQUEL) 100 MG tablet Take 1 tablet by mouth. Active rosuvastatin (CRESTOR) 20 MG tablet Take 20 mg by mouth daily. 10/26/2022 Active buPROPion (WELLBUTRIN XL) 300 MG ER 24 hr tablet Take 300 mg by mouth daily. Active docusate (COLACE) 100 mg tablet Take 100 mg by mouth 2 (two) times a day. Active anastrozole (ARIMIDEX) 1 mg tablet Take 1 mg by mouth daily. 01/01/2023 Active Active Problems Problem Noted Date Diagnosed Date Malignant neoplasm of centra l portion of left breast in female, estrogen receptor positive 01/26/2023 Stage 1 chronic kidney disease 12/08/2020 0 01/25/2023 Proteinuria 12/08/2020 01/25/2023 Family History Medical History Relation Comments Cancer Brother skin cancer Breast cancer Maternal Aunt Breast cancer Paternal Aunt Cancer Paternal Aunt uterine and skin cancer Relation Status Comments Brother Maternal Aunt Paternal Aunt Social History Tobacco Use Types Packs/Day Years Used Date Smoking Tobacco: Former Cigarettes 1 2 Smokeless Tobacco: Never Alcohol Use Standard Drinks/Week Comments Not Currently 0 (1 standard drink = 0.6 oz pur e alcohol) Education Answer Date Recorded Are you interested in more education? Not on dannie e 01/18/2023 Are you concerned about learning? Not on file 01/18/2023 No 01/18/2023 No 01/18/2023 Digital Access Answer Date Recorded No 02/19/2023 No 02/19/2023 Reliable internet access at home? Not on file 02/19/2023 Device with a working camera? Not on file Comments Unknown Sex and Gender Information Value Date Recorded Sex Assigned at Not on file Legal Sex Female 2:43 PM EST Gender Identity Not on file Sexual Orientation Not on file Last Filed Vital Signs Vital Sign Reading Time Taken Comments Blood Pressure 156/87 01/25/2023 1:10 PM EDT Pulse 72 01/25/2023 1:10 PM EDT Temperature 36.7 C (98.1 F) 01/25/2023 1:10 PM EDT Respiratory Rate 20 01/25/2023 1:10 PM EDT Oxygen Saturation 96% 01/25/2023 1:10 PM EDT Inhaled Oxygen Concentration - - Weight 95.1 kg (209 lb 11.2 oz) 01/25/2023 1:10 PM EDT Height - - Body Mass Index - - Plan of Treatment Health Maintenance Due Date Last Done Comments Adult Td,Tdap Booster 1952 CREATININE LEVEL 1952 LIPID PANEL 1952 POTASSIUM LEVEL 1952 DEPRESSION SCREENING 1964 SMOKING Hx and SMOKELESS TOBACCO SCREENING 02/13/1965 HEPATITIS C SCREENING 02/13/1970 PNEUMOCOCCAL VACCINES (50+ years) (1 of 2 - PCV) 02/13/1971 ZOSTER VACCINES (1 of 2) 02/13/1971 COLOGUARD 02/13/1997 COLONOSCOPY 02/13/1997 COLORECTAL CANCER SCREENING 02/13/1997 FIT TEST 02/13/1997 FOBT 02/13/1997 SIGMOIDOSCOPY 02/13/1997 VIRTUAL COLONOSCOPY 02/13/1997 OSTEOPOROSIS SCREENING INITIAL (ONE-TIME) 02/13/2017 MAMMOGRAM 11/01/2024 11/01/2022, 09/24, 10/11/2022, Additional history exists INFLUENZA VACCINE (#1) 2025 COVID-19 VACCINE ( - season) 2025 RSV VACCINE (1 - 1-dose 75+ series) 02/13/2027 HEPATITIS A VACCINES Aged Out No long er eligible based on patient's age to complete this topic HIB VACCINES Aged Out No longer eligi ble based on patient's age to complete this topic MENINGOCOCCAL VACCINES (ACWY) Aged Out No longer eligible based on patient's age to complete this topic MENINGOCOCCAL VACCINES (B) Aged Out N o longer eligible based on patient's age to complete this topic Medical Devices Not on file Procedures Procedure Name Priority Date/Time Associated Diagnosis Comments BI MAMMOGRAM OUTSIDE (NO INTERPRETATION) Routine 11/01/2022 12:00 AM EST from Last 3 Months or Most Recently Relevant to Health Maintenance Results * Mammogram Outside (No Interpretation) (11/01/2022 12:00 AM EST) Narrative SYSTEMGENERATED, DOCUMENTATION - 01/11/2023 11:28 AM EDT This study is for PACS storage only and not for interpretation. us Unknown Unknown MD ZAPIEN OUTSIDE IMAGING W/OUT INT ERPRETATION Final Result from Last 3 Months or Most Recently Relevant to Health Maintenance Insurance [facility] [place] [facility] DUAL MEDICARE [facility]PLACEMENT [facility] [place] [address] [facility] [place] [address] [facility] DUAL MEDICARE REPLACEMENT [facility] Care Teams Health Screener Relationship Specialty Start Date End Date Kathia Jenkins MD [address] [place] [address] PCP - General Internal Medicine 10/15/19 Additional Source Comments The information contained in this document represents components of the legal health record. It is not the complete legal health record.[facility]
== END 2025-06-10 14:39 | disposition home or self-care (01) ==
LOC: HO.HMCC 13:45
PROVIDERS: PCP Internal Medicine; Visit Provider Internal Medicine
DX: E11.65 Type 2 diabetes mellitus with hyperglycemia (principal)

== ENCOUNTER → 2025-06-10 13:44 | Outpatient (BNVA) | payer OTHER, SELFPAY | PROVIDERS: PCP Internal Medicine; Visit Provider Internal Medicine | DX: I10 Essential (primary) hypertension (principal); E78.5 Hyperlipidemia, unspecified; E11.65 Type 2 diabetes mellitus with hyperglycemia; J45.20 Mild intermittent asthma, uncomplicated | CPT/HCPCS: 83036; 99212 ==

== ENCOUNTER 2025-06-21 10:31 | Outpatient (REF) | payer OTHER, SELFPAY ==
--- OUTSIDE RECORDS SUMMARY | 2025-06-21 11:47 | XMS_ITS | Patient Health Record ---
[facility] Address [address] [place] [address] Care Team Providers Care Mobile Designer Name Role Phone Cb Williamson Unavailable [phone] Reason For Referral No Information Plan Of Treatment No Information
--- OUTSIDE RECORDS SUMMARY | 2025-06-21 11:47 | XMS_ITS | Clinical Summary ---
Author Organization [facility] Address [address] [place] [address] Phone Care Team Providers Care Manager Integration Name Role Phone Unavailable Primary Care Provider [...] Recently Relevant to Health Maintenance Insurance [facility] ([id number]) [facility] ([id number])
--- OUTSIDE RECORDS SUMMARY | 2025-06-21 11:47 | XMS_ITS | Encounter Summary ---
Author Organization [facility] Address [address] [place] [address] Phone Care Team Providers Care Sap Trainer Name Role Phone Geneva Jenkins MD Primary Care Provider [phone]- [phone] Reason for Visit * Reason Comments Med Refill Encounter Details Date Type Department Care Team (Late st Contact Info) Description 01/07/2023 Refill [facility] [address] [place] [address] Ambrosio Gilliland MD Social History [...] on filedocumented in this encounter Care Teams Sap Trainer Relationship Specialty Start Date End Date Geneva Jenkins MD [facility] [place] [address] PCP - General 10/03/20 07/21/23 documented as of this encounter
--- OUTSIDE RECORDS SUMMARY | 2025-06-21 11:47 | XMS_ITS | Clinical Summary ---
Author Organization [facility] Address [address] [place] [id number] Phone Care Team Providers Care Poultry Picking Machine Tender Name Role Phone Kathia Jenkins MD Primary [...] Most Recently Relevant to Health Maintenance Insurance [facility] DUAL MEDICARE REPLACEMENT [facility] DUAL MEDICARE [facility]PLACEMENT [facility] DUAL MEDICARE [facility] [place] [facility] DUAL MEDICARE [facility]PLACEMENT [facility] DUAL MEDICARE [facility]PLACEMENT [facility]AC[facility] DUAL MEDICARE REPLACEMENT [facility] Care Teams Poultry Picking Machine Tender Relationship Specialty Start Date End Date Kathia Jenkins MD [address] [place] [address] PCP - General Internal Medicine 10/15/19 Additional Source Comments The information contained in this document represents components of the legal health record. It is not the complete legal health record.[facility]
--- OUTSIDE RECORDS SUMMARY | 2025-06-21 11:47 | XMS_ITS | Data Portability ---
Author Organization [place] - [facility], Allergy Address [address] [address] Care Team Providers Care Highway Construction Inspector Name Role Phone ZENY EDMONDSON Primary Care Provider Assessment Encounter Date Assessment Date Assessment LastModified by Organization Details LastModified Time 07/24/2024 07/24/2024 Patient presents for medical clearance for new hearing aids. Right ear with purulent otorrhea; recommend a course of ofloxacin and return for recheck. Left ear demonstrates cerumen impaction which was successfully cleared today. Otologic exam otherwise unremarkable on that side. We discussed that once the infection is cleared we can update her audiometric testing and provide her with medical clearance for new hearing aids. Not available 07/24/2024 14:51:47 08/14/2024 08/14/2024 Otorrhea has resolved. Cerumen and squamous debris removed from right mastoid cavity. There is a pars flaccida retraction pocket present without obvious debris collection. Audiometric testing demosntrates mixed loss bilaterally. Discussed with patient her ears require regular cleaning in the office. Recommend follow up in a few months for mastoid debridement under microscope. In the interim, medical clearance was provided for her to update her hearing aid technology. Not available 08/14/2024 14:24:33 11/23/2024 11/23/2024 Otorrhea was identified under the squamous debris. Cerumen and squamous debris removed from right mastoid cavity. There is a pars flaccida retraction pocket present without obvious debris collection. Rx ofloxacin for right ear Previous audiometric testing demonstrates mixed loss bilaterally. Discussed with patient her ears require regular cleaning in the office. Recommend follow up in a few months for mastoid debridement under microscope. [email or web address] Not available 11/23/2024 14:09:11 02/23/2025 02/23/2025 75-year-old female presents for mastoid debridement. She has a partial canal wall down mastoidectomy on the right side. Squamous debris removed and no otorrhea or debris retained. Retraction of the attic but with clear borders. Recommended continued routine debridement as this has not been part of her medical care and likely why she had otorrhea recently. She should also keep the ear dry. If any persistent otorrhea consider CT temporal bone for investigation of possible recurrent cholesteatoma. Not available 02/23/2025 16:23:54 Plan of Treatment Reminders Order Date Submit Date Provider Last Modified By Organization Details Last Modified Time Details Appointments Establish ed 15 2024 03:30P M MAIA RITCHIE PA-C Not available Not available Not available Lab None recorded. Referral None recorded. Procedures None recorded. Surgeries None recorded. Imaging None recorded. Medication Orders ofloxacin 0.3 % ear drops 2024 025 [facility] #[id number], [address] [place] [address], [id number], 11/23/2024 14:09:51 ofloxacin 0.3 % ear drops 2023 024 [facility] #[id number], [address] [place], [address], 07/24/2024 14:41:57 Patient TargetsNo targets recorded. Patient InstructionsNo instructions recorded. Reason for Referral None Reported. Results Created Date Observation Date Name Description Value Unit Range Abnormal Flag Note LastModifiedBy Organization Detail LastModifiedTime 08/17/20 24 audio gram No observ ation record ed. [email or web address] Not Available 07/25 10:21:21 Result Notes None recorded. Problems Name Problem SNOMED Code Status Onset Date Resolution Date Notes Provider Name and Address Organization Details Recorded Time Otorrhea of right ear 51538252427 76842 Active 2017 Otorrhea, right ear; Note: Date Diagnosed : 05/23/2018 12:24 PM (H92.11) Not Available [facility] 08/02/202 4 03:23:16 Bilateral disorder of Eustachia n tubes 01640618144 69791 Active 2018 Other specified disorders of Eustachia n tube, bilateral ; Note: Date Diagnosed : 09/25/2018 4:04 PM (H69.83) Not Available [facility] 4 03:23:17 Mixed conductiv e and sensorine ural hearing loss, bilateral 504379373 Active 2018 Mixed conductiv e and sensorine ural hearing loss, bilateral ; Note: Date Diagnosed : 09/25/2018 4:38 PM (H90.6) WHITNEY WILL MD [address] [facility],[place] [address], [facility] [place], [address] , [place] - [facility] 4 12:21:31 Impacted cerumen in left ear 21387521724 22728 Active 2018 Impacted cerumen, left ear; Note: Date Diagnosed : 09/25/2018 4:03 PM (H61.22) Not Available [facility] 4 03:23:17 Postmasto idectomy complicat ion 83167968 Active 2023 Suly neff [place] - [facility] 4 14:25:57 Problem Notes None recorded. Procedures Surgical History Date Name Laterality Status Provider Name and Address Organization Details Recorded Time 5 Debridement of Mastoid Cavity right completed MAIA RITCHIE PA-C [address] [facility],[address], [address], [place] - [facility] 02/23/2025 16:15:20 5 Debridement of Mastoid Cavity right completed WHITNEY WILL MD [address] [facility],[place] [address], [place], [address], [place] - [facility] 11/23/2024 14:08:28 4 Comp Audio with Tymps - 76100 & 04814 completed JARAD WILLIAM [address] [facility] [address], [place], [address], [place] - [facility] 08/14/2024 13:36:49 4 Debridement of Mastoid Cavity right completed Suly Aldrich [place] [facility] 08/14/2024 14:21:06 4 Cerumen removal without microscope left completed Suly Aldrich [place] [facility] 07/24/2024 14:42:26 Imaging Results None recorded. Procedure Notes None recorded. Medical Equipment None Reported. Allergies Allergen ID Allergen Name Allergen Category Reaction Reaction Severity Criticality Documentation Date Start Date Code Code System Note Provider Name and Address Organization Details Recorded Time 645182 shrimp allergeni c extract food Not available Not available Not available 08/14/2024 06513 2 RxNorm Lulu neff [place] [facility] 4 13:02:16 Medications Name Sig Start Date Stop Date Status Note LastModified by Organization Details LastModified Time metformin 500 mg tablet TAKE 1 TABLET BY MOUTH TWICE A DAY active Not Available Not Available No t Available anastrozo le 1 mg tablet TAKE 1 TABLET BY MOUTH EVERY DAY active Not Available Not Available No t Available amlodipin e 2.5 mg tablet TAKE 1 TABLET (2.5 MG) BY MOUTH DAILY FOR 30 DAYS active Not Available Not Available No t Available ofloxacin 0.3 % ear drops INSTILL 5 DROPS IN RIGHT EAR TWICE A DAY FOR 10 DAYS active Not Available Not Available No t Available lorazepam 0.5 mg tablet TAKE 1 TABLET BY MOUTH TWICE A DAY NEEDED active Not Available Not Available No t Available meclizine 25 mg tablet TAKE 1 TABLET BY MOUTH EVERY DAY NEEDED FOR MOTION SICKNESS 08/14 completed Not Available Not Available Not Available cephalexi n 500 mg capsule TAKE 1 CAPSULE BY MOUTH EVERY 12 HOURS X10 DAYS 08/14 completed Not Available Not Available Not Available pantopraz ole 40 mg tablet,de layed release TAKE 1 TABLET BY MOUTH DAILY active Not Available Not Available No t Available simethico ne 125 mg chewable tablet TAKE 2 TABLETS BY MOUTH DIRECTED AFTER EACH MEAL 11/23 completed Not Available Not Available Not Available losartan 100 mg tablet TAKE 1 TABLET BY MOUTH EVERY DAY active Not Available Not Available No t Available Ventolin HFA 90 mcg/actua tion aerosol inhaler INHALE 2 PUFFS BY MOUTH EVERY 4 TO 6 HOURS NEEDED FOR WHEEZING active Not Available Not Available No t Available TobraDex 0.3 %-0.1 % eye drops,tiffani ceballosroseann 11/23 completed Medicati on ID: [id number] P lucille barba By Name: Aldair Chaparro MD Brand Name: TobraDex Send Method: E-Prescr ibed Sub s Allowed: subs OK Speci al Instruct ion: Instill 3 drops in the affect ear BID for 10 days Med icationG enericNa me: TobraDex Not Available Not Available Not Available metformin ER 750 mg tablet,ex tended release 24 hr TAKE 1 TABLET BY MOUTH TWICE A DAY FOR 3 MONTHS active Not Available Not Available No t Available rosuvasta tin 20 mg tablet TAKE 1 TABLET BY MOUTH EVERY DAY active Not Available Not Available No t Available bupropion HCl XL 300 mg 24 hr tablet, extended release TAKE 1 TABLET BY MOUTH EVERY DAY IN THE MORNING active Not Available Not Available No t Available metoprolo l tartrate 25 mg tablet TAKE 1 TABLET BY MOUTH TWICE A DAY active Not Available Not Available No t Available duloxetin e 30 mg capsule,d elayed release TAKE 1 CAPSULE BY MOUTH IN THE MORNING TAKE WITH 6OMG CAPSULE FOR A TOTAL DAILY DOSE OF 90MG active Not Available Not Available No t Available duloxetin e 60 mg capsule,d elayed release TAKE 1 CAPSULE BY MOUTH ONCE A DAY WITH 30MG, TOTAL 90MG DAILY active Not Available Not Available No t Available diclofena c 1 % topical gel APPLY 2 GRAMS 4 TIMES A DAY TO SINGLE ELBOW, WRIST OR HAND, INCLUDIN G PALM FINGERS AND BACK OF HAND active Not Available Not Available No t Available OneTouch Verio test strips USE TO TEST BLOOD SUGAR TWICE A DAY active Not Available Not Available No t Available OneTouch Verio Flex Meter CHECK FASTING BLOOD SUGAR TWICE A DAY BEFORE EATING active Not Available Not Available No t Available OneTouch Delica Plus Lancet 33 gauge USE TO TEST BLOOD SUGAR TWICE A DAY active Not Available Not Available No t Available Vitals Date Recorded Body height Body mass index (BMI) Body weight Provider Name and Address Organization Details Last Updated DateTime 11/23/2024 157.48 cm 34.9 kg/m2 86668.14 g Albina Mckinnon [place] - [facility] 11/23/2024 14:00:59 Date Recorded Body height Body mass index (BMI) Body weight Provider Name and Address Organization Details Last Updated DateTime 02/23/2025 157.48 cm 35.5 kg/m2 44549.92 g Valery Mark [place] [facility] 02/23/2025 15:17:23 Date Recorded Body height Body mass index (BMI) Body weight Provider Name and Address Organization Details Last Updated DateTime 08/14/2024 157.48 cm 35.8 kg/m2 30694.39 g Lulu Gautam [facility] 08/14/2024 13:01:47 Social History None recorded. Functional Status None recorded. Mental Status None recorded. Family History Nothing Reported. Medical History Condition Response Allergies/Hayfever N Heart Problems N Anxiety Y Tonsil Infections N Emphysema N Migraines N Thyroid Problems N Glaucoma N Depression Y COPD N Developmental Delay N Nasal or Sinus Problems N Anemia N Immune System Disorder N Anesthesia Complications N Heart Attack (MD) N Other Skin Condition N Diabetes Y Rhinitis N Bleeding Disorder N Food Allergy Y Arthritis Y Hearing Loss Y Hyperlipidemia N Cancer Y Stroke N Dementia N Nasal polyps N Asthma Y High Cholesterol Y Sleep Disorder N GERD/Reflux Y Liver Disease N Headaches Y Fibromyalgia Y Hypertension Y Speech Delay N Kidney Disease Y Gynecological HistoryNo gynecological history recorded. Obstetrics History GPAL:G 0 P 0 0 0 0 Past Encounters Encounter ID Performer Location Encounter Start Date Encounter Closed Date Diagnosis/Indication Diagnosis SNOMED-CT Code Diagnosis ICD10 Code Diagnosis IMO Codes Diagnosis Note [id number] SULY ALDRICH PA-C [facility] [address] [address] 07/24/2024 13:58:35 07/24/2024 14:44:50 Mixed conductive and sensorineural hearing loss, bilateral 958353297 H90.6 Otorrhea of right ear 10 69994342 792553 H92.11 Impacted c erumen in left ear 9475782579 153092 H61.22 [id number] SULY ALDRICH PA-C [facility] [address] [address] 08/14/2024 12:45:26 08/17/2024 08:27:30 Mixed conductive and sensorineural hearing loss, bilateral 369408579 H90.6 Audiologic al evaluation results: Right ear: Moderately -severe sloping to profound mixed hearing loss with good word recognitio n. Left ear: Moderately -severe sloping to severe mixed hearing loss with excellent word recognitio n. Tympanomet ry: Right Ear:Type B Left Ear:Type B Bilateral disorder of Eustachian tubes 0252165838 675253 H69.93 Otorrhea of right ear 10 37279740 226428 H92.11 Postmastoi dectomy complication 55622090 H95.199 [id number] WHITNEY WILL MD [facility] [address] [address] 11/23/2024 13:45:39 11/23/2024 14:12:40 Mixed conductive and sensorineural hearing loss, bilateral 297381928 H90.6 Bilateral disorder of Eustachian tubes 6095441805 061657 H69.93 Otorrhea of right ear 10 66166677 770096 H92.11 Postmastoi dectomy complication 78346131 H95.199 [id number] MAIA RITCHIE PA-C [facility] [address] [address] 02/23/2025 15:05:05 02/23/2025 15:51:10 Otorrhea of right ear 5022994204 649307 H92.11 Postmastoi dectomy complication 86555069 H95.199 Health Concerns Section Related Observation LastModified by Organization Detai ls LastModified Time None Recorded Concern Status LastModified by Organization Details LastModified Time None Recorded Advance Directives Directive None Recorded Payers Insurance Date Sequence Insurance Name Policy Number Policy Garcia Covered Member ID Garcia Member ID Guarantor Name 02/23/2025 1 [facility] (MEDICARE REPLACEMENT/A DVANTAGE - HMO) Jessica Hicks [id number] Jessica Hicks 08/14/2024 2 [place] [facility] Jessica Hicks [id number] Jessica Hicks Notes Date Note Type Note Provider Name and Address Organization Details Recorded Time 07/24/2024 text/html ROS as noted in the HPI 74 year old female presents for evaluation of ears and hearing. The right ear has been draining green fluid for a while now. The left hearing aid is not working well but pressing on it improves things a little bit. The right hearing aid is broken. She is hoping to obtain new hearing aids. She has a history of 3 surgeries on one ear in 1973 for a bad infection, unsure which side. WHITNEY WILL MD [address] [facility],[place] [address], [place], [address], [facility] 07/24/2024 17:09:06 08/14/2024 text/html ROS as noted in the HPI 74 year old female presents for evaluation of the ears and hearing. History of BMT at one point, then two surgeries on right ear in 1973, unsure what the diagnosis was for that. Reports the otorrhea from the right ear has resolved with use of the ofloxacin drops. Hearing is at baseline, rather poor. Would like to update her hearing aid technology. No otalgia. Suly neff [place] - [facility] 08/14/2024 14:26:25 11/23/2024 text/html ROS as noted in the HPI Right mastoid CWD 1973long term hearing aid userear has been dry PV 08/14/24 Suly - right mastoid debridement and clearance for updated hearing aids. WHITNEY WILL MD [address] [facility],[address], [address], [facility] - [facility] 11/23/2024 14:10:40 02/23/2025 text/html 75-year-old female presents for reevaluation. She has a history of otologic surgery in the late 90s though she is unsure exactly what type of surgery it was. She has not had any ENT follow-up. Was having otorrhea from the right ear for many months. Recently seen by Dr. Will and found to have a mastoid cavity with significant squamous debris and otorrhea which was cleared. She also had retraction of the attic. WHITNEY WILL MD [address] [facility], [place], [address], [facility] 02/24/2025 15:34:47 OBGyn Episode No OBEpisode recorded.
[2025-06-21 14:08] LABS: Alanine Aminotransferase 23 U/L (0-31); Anion Gap 12 (12-20); Aspartate Amino Transferase 34 U/L (5-31); Blood Urea Nitrogen 24 mg/dL (9-16); Calcium 9.9 mg/dL (8.4-10.2); Carbon Dioxide 26 mmol/L (22-29); Chloride 107 mmol/L (96-108); Cholesterol 133 mg/dL (<200); Estimated Glomerular Filt Rate > 60; HDL Cholesterol 43 mg/dL (>40); Potassium 4.4 mmol/L (3.3-5.1); Sodium 141 mmol/L (135-145); Triglycerides 101 mg/dL (<150)
== END 2025-06-21 10:32 | disposition home or self-care (01) ==
LOC: HO.HMGCLDS 10:31
PROVIDERS: PCP Internal Medicine; Visit Provider Internal Medicine
DX: Z13.21 Encounter for screening for nutritional disorder (principal); E11.65 Type 2 diabetes mellitus with hyperglycemia; E78.5 Hyperlipidemia, unspecified
CPT/HCPCS: 36415; 80048; 80061; 82306; 84450; 84460

== ENCOUNTER 2025-07-27 13:20 | Outpatient (REF) | payer OTHER, SELFPAY ==
[2025-07-27 16:06] LABS: MANUAL DIFF FLAG NO
--- OUTSIDE RECORDS SUMMARY | 2025-07-27 16:14 | XMS_ITS | Data Portability ---
Author Organization [place] - [facility], Allergy Address [address] [address] Care Team Providers Care Volunteer Services Supervisor Name Role Phone ZENY EDMONDSON Primary Care [...] few months for mastoid debridement under microscope. [email or web address] del rosario Not available 11/23/2024 14:09:11 02/23/2025 02/23/2025 75-year-old [...] bone for investigation of possible recurrent cholesteatoma. [email or web address] Not available 02/23/2025 16:23:54 Plan of Treatment Reminders Order Date Submit Date Provider Last Modified By Organization Details Last Modified Time Details Appointments Establish ed 15 2024 03:15P LUCY PALMA Not available Not available Not available Lab None recorded. Referral None recorded. Procedures None recorded. Surgeries None recorded. Imaging None recorded. Medication Orders ofloxacin 0.3 % ear drops 2024 025 [facility] #[id number], [address] [place] [address], [address], 11/23/2024 14:09:51 ofloxacin 0.3 % ear drops 2023 024 [facility][id number], [address] [place], [id number], 07/24/2024 14:41:57 Patient TargetsNo targets recorded. Patient InstructionsNo instructions recorded. Reason for Referral None Reported. Results Created Date Observation Date Name Description Value Unit Range Abnormal Flag Note LastModifiedBy Organization Detail LastModifiedTime 08/17/20 24 audio gram No observ ation record ed. [email or web address] Not Available 07/25 10:21:21 Result Notes None recorded. Problems Name Problem SNOMED Code Status Onset Date Resolution Date Notes Provider Name and Address Organization Details Recorded Time Otorrhea of right ear 78944540107 59186 Active 2017 Otorrhea, right ear; Note: Date Diagnosed : 05/23/2018 12:24 PM (H92.11) Not Available [facility] 08/02/202 4 03:23:16 Bilateral disorder of Eustachia n tubes 29111967195 85705 Active 2018 Other specified disorders of Eustachia n tube, bilateral ; Note: Date Diagnosed : 09/25/2018 4:04 PM (H69.83) Not Available [facility] 4 03:23:17 Mixed conductiv e and sensorine ural hearing loss, bilateral 541300867 Active 2018 Mixed conductiv e and sensorine ural hearing loss, bilateral ; Note: Date Diagnosed : 09/25/2018 4:38 PM (H90.6) WHITNEY WILL MD [address] [facility] [place],[address] [place], [address] , [facility] - [facility] 4 12:21:31 Impacted cerumen in left ear 75205307236 65408 Active 2018 Impacted cerumen, left ear; Note: Date Diagnosed : 09/25/2018 4:03 PM (H61.22) Not Available [facility] 4 03:23:17 Postmasto idectomy complicat ion 19253729 Active 2023 Suly neff [place] - [facility] 4 14:25:57 Problem Notes None recorded. Procedures Surgical History Date Name Laterality Status Provider Name and Address Organization Details Recorded Time 5 Debridement of Mastoid Cavity right completed MAIA RITCHIE PA-C [address] [facility] [place],[address], [address], [place] - [facility] 02/23/2025 16:15:20 5 Debridement of Mastoid Cavity right completed WHITNEY WILL MD [address] [facility] [place],[address], [address], [place] - [facility] 11/23/2024 14:08:28 4 Comp Audio with Tymps - 20302 & 78270 completed JARAD WILLIAM [address] [facility] [place],[address], [address], [place] - [facility] 08/14/2024 13:36:49 4 Debridement of Mastoid Cavity right completed Suly Aldrich [place] [facility] 08/14/2024 14:21:06 4 Cerumen removal without microscope left completed Suly Aldrich [place] - [facility] 07/24/2024 14:42:26 Imaging Results None recorded. Procedure Notes None recorded. Medical Equipment None Reported. Allergies Allergen ID Allergen Name Allergen Category Reaction Reaction Severity Criticality Documentation Date Start Date Code Code System Note Provider Name and Address Organization Details Recorded Time 706795 shrimp allergeni c extract food Not available Not available Not available 08/14/2024 59646 2 RxNorm Lulu neff [place] - [facility] 4 13:02:16 Medications Name Sig Start Date [...] layed release TAKE 1 TABLET BY MOUTH EVERY DAY active Not Available Not Available No t Available simethico ne 125 mg chewable tablet TAKE 2 TABLETS BY MOUTH DIRECTED AFTER EACH MEAL 11/23 completed Not Available Not Available Not Available albuterol sulfate HFA 90 mcg/actua tion aerosol inhaler INHALE 2 PUFFS INTO THE LUNGS EVERY 4 TO 6 HOURS NEEDED FOR WHEEZING active Not Available Not Available No t Available losartan 100 mg tablet TAKE 1 TABLET BY MOUTH DAILY active Not Available Not Available No t Available TobraDex 0.3 %-0.1 % eye drops,tiffani longoria 11/23 completed Medicati on ID: [id number] P lucille barba By Name: Aldair Chaparro [...] mg tablet TAKE 1 TABLET BY MOUTH DAILY active [...] 1 CAPSULE BY MOUTH ONCE A DAY EVERY MORNING TAKE WITH 60MG CAPSULE FOR TOTAL DOSE 90MG DAILY active Not Available Not Available No t Available duloxetin e 60 mg capsule,d elayed release TAKE 1 CAPSULE BY MOUTH EVERY DAY WITH 30 MG CAPS FOR TOTAL DAILY DOSE OF 90 MG active Not Available Not Available No t Available diclofena c 1 % topical gel APPLY 2 GRAMS 4 TIMES A DAY TO SINGLE ELBOW, WRIST OR HAND, INCLUDIN G PALM FINGERS AND BACK OF HAND active Not Available Not Available No t Available OneTouch Verio test strips USE TO TEST BLOOD SUGAR TWICE A DAY active Not Available Not Available No t Available Arnuity Ellipta 100 mcg/actua tion powder for inhalatio n INHALE 1 ACTUATIO N EVERY 24 HOURS active Not Available Not Available No t [...] Updated DateTime 11/23/2024 157.48 cm 34.9 kg/m2 87643.14 g Albina Mckinnon [place] - [facility] 11/23/2024 14:00:59 Date Recorded Body height Body mass index (BMI) Body weight Provider Name and Address Organization Details Last Updated DateTime 02/23/2025 157.48 cm 35.5 kg/m2 36255.92 g Valery Flores [facility] 02/23/2025 15:17:23 Date Recorded Body height Body mass index (BMI) Body weight Provider Name and Address Organization Details Last Updated DateTime 08/14/2024 157.48 cm 35.8 kg/m2 80365.39 g Lulu Lotus [facility] 08/14/2024 13:01:47 Social History None recorded. Functional [...] Disorder N Anesthesia Complications N Heart Attack (HI) N Other Skin Condition N Diabetes Y [...] ICD10 Code Diagnosis IMO Codes Diagnosis Note [id number] SULY ALDRICH PA-C [facility] [address] [address] 07/24/2024 13:58:35 07/24/2024 14:44:50 Mixed conductive and sensorineural hearing loss, bilateral 168784923 H90.6 Otorrhea of right ear 10 18285271 268167 H92.11 Impacted c erumen in left ear 5467682530 885885 H61.22 [id number] SULY ALDRICH PA-C [facility] [address] [address] 08/14/2024 12:45:26 08/17/2024 08:27:30 Mixed conductive and sensorineural hearing loss, bilateral 083579709 H90.6 Audiologic al evaluation results: Right ear: Moderately -severe sloping to profound mixed hearing loss with good word recognitio n. Left ear: Moderately -severe sloping to severe mixed hearing loss with excellent word recognitio n. Tympanomet ry: Right Ear:Type B Left Ear:Type B Bilateral disorder of Eustachian tubes 7318610989 833455 H69.93 Otorrhea of right ear 10 56033012 617428 H92.11 Postmastoi dectomy complication 44469127 H95.199 [id number] WHITNEY WILL MD [facility] [address] [address] 11/23/2024 13:45:39 11/23/2024 14:12:40 Mixed conductive and sensorineural hearing loss, bilateral 509508738 H90.6 Bilateral disorder of Eustachian tubes 1948667547 000635 H69.93 Otorrhea of right ear 10 39311818 353759 H92.11 Postmastoi dectomy complication 88991960 H95.199 [id number] MAIA RITCHIE PA-C [facility] [address] [address] 02/23/2025 15:05:05 02/23/2025 15:51:10 Otorrhea of right ear 4174795894 593461 H92.11 Postmastoi dectomy complication 52616670 H95.199 Health Concerns Section Related Observation LastModified by Organization Detai ls LastModified Time None Recorded Concern Status LastModified by Organization Details LastModified Time None Recorded Advance Directives Directive None Recorded Payers Insurance Date Sequence Insurance Name Policy Number Policy Garcia Covered Member ID Garcia Member ID Guarantor Name 07/18/2025 1 [facility] (MEDICARE REPLACEMENT/A DVANTAGE - HMO) Jessica Hicks [id number] Jessica Hicks 08/14/2024 2 [place] [facility] Jessica Hicks [id number] Jessica Hicks Notes Date Note Type Note [...] unsure which side. WHITNEY WILL MD [address] [facility] [place],[address], [address], [facility] - [facility] 07/24/2024 17:09:06 08/14/2024 text/html ROS as noted [...] hearing aid technology. No otalgia. Suly neff [place] - [facility] 08/14/2024 14:26:25 11/23/2024 text/html ROS as noted in the [facility] Right mastoid CWD 1973long term hearing aid userear has been dry PV 08/14/24 Suly - right mastoid debridement and clearance for updated hearing aids. WHITNEY WILL MD [address] [facility] [place],[address], [address], [facility] 11/23/2024 14:10:40 02/23/2025 text/html 75-year-old female presents [...] of the attic. WHITNEY WILL MD 100 [facility] [place] [address], [place], [address], [facility] - [facility] 02/24/2025 15:34:47 OBGyn Episode No OBEpisode recorded.
--- OUTSIDE RECORDS SUMMARY | 2025-07-27 16:14 | XMS_ITS | Clinical Summary ---
Author Organization [facility] Address [address] [place] [address] Phone Care Team Providers Care Airport Sales Agent Name Role Phone Kathia Jenkins MD Primary [...] exists INFLUENZA VACCINE (#1) 2025 COVID-19 VACCINE (1 - season) 2025 RSV VACCINE (1 - [...] Most Recently Relevant to Health Maintenance Insurance [facility] Care Teams Airport Sales Agent Relationship Specialty Start Date End Date Kathia Jenkins MD [facility] [place] [address] PCP - General Internal Medicine 10/15/19 Additional Source Comments The information contained in this document represents components of the legal health record. It is not the complete legal health record.[facility]
--- OUTSIDE RECORDS SUMMARY | 2025-07-27 16:14 | XMS_ITS | Patient Health Record ---
Author Organization [facility] Address [address] [place] [address] Care Team Providers Care Fishing Vessel Operator Name Role Phone Cb Williamson Unavailable [phone] Reason For Referral No Information Plan Of Treatment No Information
[2025-07-27 16:20] LABS: Appearance Urine Cloudy; Glucose Urine UA Negative (Negative); PH 5.5 (5.0-9.0); Specific Gravity - Urine >= 1.030 (1.005-1.025); UMIC TRIGGER UA YES
[2025-07-27 16:32] LABS: Hematocrit 39.7 % (37.0-47.0); Hemoglobin 13.0 g/dl (12.0-16.0); Imm Gran Abs Auto 0.03 X10*3/uL (0.00-0.03); Imm Gran Pct Auto 0.3 % (0.0-0.4); Lymphocytes Absolute Auto 2.6 X10*3/uL (1.2-4.9); Mean Corpuscular HGB Conc 32.7 g/dl (31.0-35.0); Mean Corpuscular Hemoglobin 28.4 pg (27.0-33.0); Mean Corpuscular Volume 86.7 fL (80.0-98.0); NRBC Abs Auto 0.000 X10*3/uL (0.0-0.012); NRBC Pct Auto 0.0 /100WBC (0.0-0.2); Platelet Count 292 X10*3/uL (160-400); Red Blood Count 4.58 X10*6/uL (4.20-5.50); White Blood Count 9.7 X10*3/uL (4.8-10.8)
[2025-07-27 16:46] LABS: Alanine Aminotransferase 25 U/L (0-31); Albumin Level 3.9 g/dL (3.5-5.0); Alkaline Phosphatase 85 U/L (39-117); Anion Gap 13 (12-20); Aspartate Amino Transferase 38 U/L (5-31); Blood Urea Nitrogen 21 mg/dL (9-16); Calcium 9.7 mg/dL (8.4-10.2); Carbon Dioxide 24 mmol/L (22-29); Chloride 105 mmol/L (96-108); Estimated Glomerular Filt Rate > 60; Potassium 4.2 mmol/L (3.3-5.1); Sodium 138 mmol/L (135-145); Total Protein 7.4 g/dL (6.5-8.0)
[2025-07-27 17:07] LABS: Total Protein Urine Random 228 mg/dL (<12)
[2025-07-27 17:10] LABS: Parathyroid Hormone Intact 36.8 pg/mL (8.7-77.1)
== END 2025-07-27 13:21 | disposition home or self-care (01) ==
LOC: HO.HMGCLDS 13:20
PROVIDERS: PCP Internal Medicine; Visit Provider Internal Medicine Hypertension Specialist
DX: I10 Essential (primary) hypertension (principal); Z85.3 Personal history of malignant neoplasm of breast
CPT/HCPCS: 36415; 80053; 81001; 82306; 82570; 83970; 84156; 85025

== ENCOUNTER 2025-08-02 13:44 | Outpatient (AMB) | payer OTHER, SELFPAY ==
[2025-08-02 13:45] VITALS: BP 130/88; PULSE 80; O2SAT 95; BMI 35.8
--- NOTE | 2025-08-02 13:45 | HO.NEPHOV_ITS ---
Vital Signs 08/02/25 13:45 Height 5 ft 2 in Weight 196 lb BMI 35.8 BP 130/88 Blood Pressure Location Lt brachial Position Sitting Pulse 80 Pulse Source Pulse Oximeter Pulse Oximetry (%) 95 Oxygen Delivery Method Room Air Intake Visit Reasons: 6 MO FU Supervisor Metal Fabricating Required: No Supervisor Metal Fabricating Services: Supervisor Metal Fabricating Offered & Declined (Daughter will translate) Accompanied by: Daughter Allergies shrimp Allergy (Mild, Verified 08/02/25 13:48) itch Medication List - Last Reconciled 08/02/25 by Richard Terrell MD albuterol sulfate 90 mcg/actuation 2 puffs inhalation Q4-6H PRN amlodipine 2.5 mg PO DAILY 30 days anastrozole (Arimidex) 1 mg PO DAILY Arnuity Ellipta 100 mcg/actuation (fluticasone furoate) 1 inh inhalation Q24H NS blood sugar diagnostic ([employer] DevicesTouch Verio test strips) Test blood sugar twice a day blood-glucose meter (OneTouch Verio Flex Meter) Check fasting blood sugar twice a day before eating blood-glucose meter (OneTouch Verio Flex Meter) As directed bupropion HCl XL 300 mg PO QAM cholecalciferol (vitamin D3) 50 mcg PO DAILY diclofenac sodium 1% 2 grams topical QID duloxetine 90 mg PO DAILY lancets (OneTouch Delica Plus Lancet) Test blood sugar twice a day lorazepam 0.5 mg PO BID PRN losartan 100 mg PO DAILY meclizine 25 mg PO DAILY PRN metformin ER 750 mg PO BID 3 months metoprolol tartrate 25 mg PO BID pantoprazole 40 mg PO DAILY quetiapine 25 mg PO DAILY rosuvastatin 20 mg PO DAILY HPI Comments Details: Elderly woman with a history of longstanding hypertension obesity. She is well known to me. Previously seen in 2021. She is here for further follow up options he is not happy with her current manager regulatory who was assigned to her. She was accompanied by her daughter today. She has is compliant with her medications. She is a history of breast cancer on the left. Currently on Arimidex for the last 3 years. 08/02/25 Doing well. N o new issues [facility] Medical History Vaccination refused by patient Bilateral finger arthralgia Trigger finger, left Carcinoma of left breast in female, estrogen receptor positive Hearing loss Diabetes mellitus with hyperglycemia, without long-term current use of insulin HX: breast cancer Depression Uses hearing aid Elevated cholesterol GERD (gastroesophageal reflux disease) Bronchial asthma Essential hypertension Surgical History Hx of eye surgery History of lumpectomy of left breast (11/28/22) History of breast lump/mass excision History of lumpectomy Hx of colonoscopy History of esophagogastroduodenoscopy (EGD) History of cholecystectomy Family History Father Diabetes mellitus Essential hypertension CVA (cerebral vascular accident) Dyslipidemia Mother Dyslipidemia CVA (cerebral vascular accident) Mother Mental health disorder Brother Mental health disorder Paternal Aunt Breast cancer Ovarian cancer Maternal Aunt Breast cancer Ovarian cancer Social History Housing: Apartment Are you a primary care management assistant to a significant other at home: No Do you presently have visiting nurse or other home services: No Alcohol intake: never Patient Tobacco Use Status: Never used Tobacco e-Cigarette/Vaping Use: Never Used Advance Directives Date on File: 11/08/22 service: No Current occupational status: disabled Cognitive needs: No Hearing needs: Yes Vision needs: Yes Physical Exam Vital Signs: Last Vital Signs Pulse 80 08/02/25 13:45 Pulse Ox 95 08/02/25 13:45 Oxygen Delivery Method Room Air 08/02/25 13:45 BMI result Body Mass Index 35.8 Comfortable Neck supple no JVD. Lungs entry equal no rales. Heart S1-S2 heard no gallop or rub. Abdomen soft nontender. Neuro alert awake oriented. No asterixis. Extremities no edema. Results Reviewed Nephrology Results: Hgb, (12.0-16.0) 13.0 g/dl 07/27/25 WBC, (4.8-10.8) 9.7 X10*3/uL 07/27/25 Plt Count, (160-400) 292 X10*3/uL 07/27/25 Sodium, (135-145) 138 mmol/L 07/27/25 Potassium, (3.3-5.1) 4.2 mmol/L 07/27/25 Chloride, (96-108) 105 mmol/L 07/27/25 Carbon Dioxide, (22-29) 24 mmol/L 07/27/25 BUN, (9-16) 21 mg/dL H 07/27/25 Creatinine, (0.5-1.4) 0.79 mg/dL 07/27/25 Calcium, (8.4-10.2) 9.7 mg/dL 07/27/25 PTH Intact, (8.7-77.1) 36.8 pg/mL 07/27/25 Urine Protein, (Neg-Trace) 300 (3+) mg/dL H 07/27/25 Urine Creatinine 211.01 mg/dL 07/27/25 Assessment & Plan Assessment & Plan (1) Essential hypertension: Code(s): I10 - Essential (primary) hypertension Category: Medical Plan Jessica has well-controlled hypertension in the setting of obesity. We discussed importance of weight loss and low-salt diet. I will continue the current regimen for now. Renal function stable Has proteinuria due to diabetic kdiney disease Keep Losartan We will monitor urine protein excretion along with serum creatinine. Mild elevation serum calcium. She is on vitamin-D. I will recheck calcium vitamin-D and intact PTH prior to her next visit. I have reassured her and we will be happy to follow her along with the team. Orders: Orders Basic Metabolic Panel 6 Months I10 - Essential (primary) hypertension, R80.9 - Proteinuria, unspecified UA and rflx microscopic 6 Months I10 - Essential (primary) hypertension, R80.9 - Proteinuria, unspecified Complete Blood Count no Diff 6 Months I10 - Essential (primary) hypertension, R80.9 - Proteinuria, unspecified Creatinine Urine 6 Months I10 - Essential (primary) hypertension, R80.9 - Proteinuria, unspecified Total Protein Urine Random 6 Months I10 - Essential (primary) hypertension, R80.9 - Proteinuria, unspecified Coding Level of Care Code Est Pt Level 4 (32887) Diagnoses Essential hypertension I10
--- OUTSIDE RECORDS SUMMARY | 2025-08-02 15:56 | XMS_ITS | Data Portability ---
Author Organization [place] - [facility], Allergy Address [address] [address] Care Team Providers Care Char Filter Tank Tender Name Role Phone ZENY EDMONDSON Primary Care Provider [phone] Assessment Encounter Date Assessment Date Assessment LastModified [...] bone for investigation of possible recurrent cholesteatoma. [email or web address] Not available 02/23/2025 16:23:54 Plan of Treatment Reminders Order Date Submit Date Provider Last Modified By Organization Details Last Modified Time Details Appointments Establish ed 15 2024 03:15P LUCY PALMA Not available Not available Not available Lab None recorded. Referral None recorded. Procedures None recorded. Surgeries None recorded. Imaging None recorded. Medication Orders ofloxacin 0.3 % ear drops 2024 025 [facility]Pharmacy #[id number], [address] [place] [address], [address], 11/23/2024 14:09:51 ofloxacin 0.3 % ear drops 2023 024 [facility]acy #[id number], [address] [place], [address], 07/24/2024 14:41:57 Patient TargetsNo targets recorded. Patient InstructionsNo instructions recorded. Reason for Referral None Reported. Results Created Date Observation Date Name Description Value Unit Range Abnormal Flag Note LastModifiedBy Organization Detail LastModifiedTime 08/17/20 24 audio gram No observ ation record ed. [email or web address] Not Available 07/25 10:21:21 Result Notes None recorded. Problems Name Problem SNOMED Code Status Onset Date Resolution Date Notes Provider Name and Address Organization Details Recorded Time Otorrhea of right ear 57102897441 38028 Active 2017 Otorrhea, right ear; Note: Date Diagnosed : 05/23/2018 12:24 PM (H92.11) Not Available [facility] 08/02/202 4 03:23:16 Bilateral disorder of Eustachia n tubes 62799291168 49650 Active 2018 Other specified disorders of Eustachia n tube, bilateral ; Note: Date Diagnosed : 09/25/2018 4:04 PM (H69.83) Not Available [facility] 4 03:23:17 Mixed conductiv e and sensorine ural hearing loss, bilateral 396956759 Active 2018 Mixed conductiv e and sensorine ural hearing loss, bilateral ; Note: Date Diagnosed : 09/25/2018 4:38 PM (H90.6) WHITNEY WILL MD 100 [facility],[address] [place], [address] , [facility] - [facility] 4 12:21:31 Impacted cerumen in left ear 33883245881 00622 Active 2018 Impacted cerumen, left ear; Note: Date Diagnosed : 09/25/2018 4:03 PM (H61.22) Not Available [facility] 4 03:23:17 Postmasto idectomy complicat ion 56510494 Active 2023 Suly neff [place] - [facility] 4 14:25:57 Problem Notes None recorded. Procedures Surgical History Date Name Laterality Status Provider Name and Address Organization Details Recorded Time 5 Debridement of Mastoid Cavity right completed MAIA RITCHIE PA-C 100 [facility],[address], [address], [place] - [facility] 02/23/2025 16:15:20 5 Debridement of Mastoid Cavity right completed WHITNEY WILL MD 100 [facility],[address], [address], [place] - [facility] 11/23/2024 14:08:28 4 Comp Audio with Tymps - 90305 & 54376 completed JARAD WILLIAM 100 [facility],[address], [address], [place] - [facility] 08/14/2024 13:36:49 4 Debridement of Mastoid Cavity right completed Suly Aldrich [place] [facility] 08/14/2024 14:21:06 4 Cerumen removal without microscope left completed Suly Aldrich [place] - [facility] 07/24/2024 14:42:26 Imaging Results None recorded. Procedure Notes None recorded. Medical Equipment None Reported. Allergies Allergen ID Allergen Name Allergen Category Reaction Reaction Severity Criticality Documentation Date Start Date Code Code System Note Provider Name and Address Organization Details Recorded Time 867787 shrimp allergeni c extract food Not available Not available Not available 08/14/2024 28853 2 RxNorm Lulu neff [place] - [facility] 4 13:02:16 Medications Name Sig Start Date [...] drops,tiffani longoria 11/23 completed Medicati on ID: [id number] P lucille barba By Name: Aldair Chaparro [...] Updated DateTime 11/23/2024 157.48 cm 34.9 kg/m2 07494.14 g Albina Mckinnon [place] - [facility] 11/23/2024 14:00:59 Date Recorded Body height Body mass index (BMI) Body weight Provider Name and Address Organization Details Last Updated DateTime 02/23/2025 157.48 cm 35.5 kg/m2 38573.92 g Valery Flores [facility] 02/23/2025 15:17:23 Date Recorded Body height Body mass index (BMI) Body weight Provider Name and Address Organization Details Last Updated DateTime 08/14/2024 157.48 cm 35.8 kg/m2 71642.39 g Lulu Lotus [facility] 08/14/2024 13:01:47 Social History None recorded. Functional Status None recorded. Mental Status None recorded. Family History Nothing Reported. Medical History Condition Response Allergies/Hayfever N Heart Problems N Anxiety Y Tonsil Infections N Emphysema N Migraines N Thyroid Problems N COPD N Depression Y Developmental Delay N Glaucoma N Nasal or Sinus Problems N Anemia N Immune System Disorder N Anesthesia Complications N Heart Attack (NM) N Other Skin Condition N Diabetes Y Rhinitis N Bleeding Disorder N Food Allergy Y Hearing Loss Y Arthritis Y Hyperlipidemia N Cancer Y Stroke N Dementia N Nasal polyps N Asthma Y Sleep Disorder N High Cholesterol Y GERD/Reflux Y Liver Disease N Headaches Y Fibromyalgia Y Hypertension Y Speech Delay N Kidney Disease Y Gynecological HistoryNo gynecological history recorded. Obstetrics History GPAL:G 0 P 0 0 0 0 Past Encounters Encounter ID Performer Location Encounter Start Date Encounter Closed Date Diagnosis/Indication Diagnosis SNOMED-CT Code Diagnosis ICD10 Code Diagnosis IMO Codes Diagnosis Note [id number] SULY ALDRICH PA-C [facility] [address] [address] 07/24/2024 13:58:35 07/24/2024 14:44:50 Mixed conductive and sensorineural hearing loss, bilateral 485542938 H90.6 Otorrhea of right ear 10 91040386 221178 H92.11 Impacted c erumen in left ear 7891725950 561233 H61.22 [id number] SULY ALDRICH PA-C [facility] [address] [address] 08/14/2024 12:45:26 08/17/2024 08:27:30 Mixed conductive and sensorineural hearing loss, bilateral 540023758 H90.6 Audiologic al evaluation results: Right ear: Moderately -severe sloping to profound mixed hearing loss with good word recognitio n. Left ear: Moderately -severe sloping to severe mixed hearing loss with excellent word recognitio n. Tympanomet ry: Right Ear:Type B Left Ear:Type B Bilateral disorder of Eustachian tubes 9327308104 569091 H69.93 Otorrhea of right ear 10 47847089 631965 H92.11 Postmastoi dectomy complication 55630867 H95.199 [id number] WHITNEY WILL MD [facility] [address] [address] 11/23/2024 13:45:39 11/23/2024 14:12:40 Mixed conductive and sensorineural hearing loss, bilateral 149628280 H90.6 Bilateral disorder of Eustachian tubes 0758994805 646547 H69.93 Otorrhea of right ear 10 93816602 775883 H92.11 Postmastoi dectomy complication 45519846 H95.199 [id number] MAIA RITCHIE PA-C [facility] [address] [address] 02/23/2025 15:05:05 02/23/2025 15:51:10 Otorrhea of right ear 1414660817 289474 H92.11 Postmastoi dectomy complication 57234713 H95.199 Health Concerns Section Related Observation LastModified by Organization Detai ls LastModified Time None Recorded Concern Status LastModified by Organization Details LastModified Time None Recorded Advance Directives Directive None Recorded Payers Insurance Date Sequence Insurance Name Policy Number Policy Garcia Covered Member ID Garcia Member ID Guarantor Name 08/01/2025 1 [facility] (MEDICARE REPLACEMENT/A DVANTAGE - HMO) Jessica Hicks [id number] Jessica Hicks 08/14/2024 2 [place] [facility] Jessica Hicks [id number] Jessica Hicks Notes Date Note Type Note [...] unsure which side. WHITNEY WILL MD 100 [facility],[address], [address], [facility] - [facility] 07/24/2024 17:09:06 08/14/2024 text/html ROS as noted [...] hearing aid technology. No otalgia. Suly neff [place] - [facility] 08/14/2024 14:26:25 11/23/2024 text/html ROS as noted in the [facility] Right mastoid CWD 1973long term hearing aid userear has been dry PV 08/14/24 Suly - right mastoid debridement and clearance for updated hearing aids. WHITNEY WILL MD 100 [facility],[address], [address], [facility] 11/23/2024 14:10:40 02/23/2025 text/html 75-year-old female presents [...] of the attic. WHITNEY WILL MD 100 [facility] [address], [place], [address], [facility] - [facility] 02/24/2025 15:34:47 OBGyn Episode No OBEpisode recorded.
--- OUTSIDE RECORDS SUMMARY | 2025-08-02 15:56 | XMS_ITS | Clinical Summary ---
Author Organization [facility] Address [address] [place] [address] Phone Care Team Providers Care Outdoor Adventure Leader Name Role Phone Unavailable Primary Care Provider [...] Most Recently Relevant to Health Maintenance Insurance [facility] ([id number]) [facility] ([id number])
--- OUTSIDE RECORDS SUMMARY | 2025-08-02 15:56 | XMS_ITS | Encounter Summary ---
Author Organization [facility] Address [address] [place] [address] Phone Care Team Providers Care Home Lending Officer Name Role Phone Geneva Jenkins MD Primary Care Provider [phone] Reason for Visit * Reason Comments Med Refill Encounter Details Date Type Department Care Team (Late st Contact Info) Description 01/07/2023 Refill [facility] [address] [place] [address] Ambrosio Gilliland MD Social History [...] on filedocumented in this encounter Care Teams Home Lending Officer Relationship Specialty Start Date End Date Geneva Jenkins MD [address] [place] [address] PCP - General 10/03/20 07/21/23 documented as of this encounter
--- OUTSIDE RECORDS SUMMARY | 2025-08-02 15:56 | XMS_ITS | Clinical Summary ---
Author Organization [facility] Address [address] [place] [address] Phone Care Team Providers Care Plate Worker Name Role Phone Kathia Jenkins MD Primary [...] VACCINE (#1) 2025 COVID-19 VACCINE (1 - 2024- season) 2025 RSV VACCINE (1 - 1-dose 75+ series) 02/13/2027 HEPATITIS A VACCINES Aged Out No long er eligible based on patient's age to complete this topic HIB VACCINES Aged Out No longer eligi ble based on patient's age to complete this topic IPV VACCINES Aged Out No longer eligi ble [...] Most Recently Relevant to Health Maintenance Insurance [facility] MED[facility] [place] [facility] [facility] MEDIC[facility] Care Teams Plate Worker Relationship Specialty Start Date End Date Kathia Jenkins MD [facility] [facility] [place] [address] PCP - General Internal Medicine 10/15/19 Additional Source Comments The information contained in this document represents components of the legal health record. It is not the complete legal health record.[facility]
== END 2025-08-02 13:57 | disposition home or self-care (01) ==
LOC: HO.HKA 13:45
PROVIDERS: PCP Internal Medicine; Visit Provider Internal Medicine Hypertension Specialist
DX: I10 Essential (primary) hypertension (principal)
CPT/HCPCS: 99214

== ENCOUNTER → 2025-08-02 13:44 | Outpatient (BNVA) | payer OTHER, SELFPAY | PROVIDERS: PCP Internal Medicine; Visit Provider Internal Medicine Hypertension Specialist | DX: I10 Essential (primary) hypertension (principal) | CPT/HCPCS: 99212 ==

== ENCOUNTER 2025-09-06 13:43 | Outpatient (AMB) | payer OTHER, SELFPAY ==
--- NOTE | 2025-09-06 13:50 | MHC.OFFVIS ---
Vital Signs 09/06/25 13:57 Height 5 ft 2 in Weight 194 lb BMI 35.5 BP 182/84 H Blood Pressure Location Lt brachial Position Sitting Pulse 68 Intake Visit Reasons: 6 mth Breast exam Intake Note: Patient is seen in office for 6 month follow up visit, breast exam. 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 She underwent a left breast lumpectomy with LOCalizer localization, sentinel node biopsy on 11/05/2022. Pathology revealed a 1 cm, grade 2 invasive carcinoma as noted above. Two sentinel nodes were negative for metastatic disease. The margins were found to have positive margins at the skin and she was subsequently returned to the OR on 11/28/2022 for partial excision of the left breast skin, nipple-areolar complex. She reports feeling well today with no particular breast symptoms at this time. She was evaluated by Dr. North and started on Arimidex, which she is tolerating well. Oncotype testing revealed a score of 10. She was evaluated by radiation oncology at [facility] and decision made to forego radiation therapy. Yearly mammogram performed on 11/11/2024 revealed postoperative changes of the left breast but no mammographic evidence of malignancy (BI-RADS 2). She is scheduled for her annual mammogram on 11/17/2025. She reports some skin changes to the left breast and chest wall. [facility] Medical History Vaccination refused by patient Bilateral finger arthralgia Trigger finger, left Carcinoma of left breast in female, estrogen receptor positive Hearing loss Diabetes mellitus with hyperglycemia, without long-term current use of insulin HX: breast cancer Depression Uses hearing aid Elevated cholesterol GERD (gastroesophageal reflux disease) Bronchial asthma Essential hypertension Surgical History Hx of eye surgery History of lumpectomy of left breast (11/28/22) History of breast lump/mass excision History of lumpectomy Hx of colonoscopy History of esophagogastroduodenoscopy (EGD) History of cholecystectomy Family History Father Diabetes mellitus Essential hypertension CVA (cerebral vascular accident) Dyslipidemia Mother Dyslipidemia CVA (cerebral vascular accident) Mother Mental health disorder Brother Mental health disorder Paternal Aunt Breast cancer Ovarian cancer Maternal Aunt Breast cancer Ovarian cancer Social History Housing: Apartment Are you a primary healthcare administration internship to a significant other at home: No Do you presently have visiting nurse or other home services: No Alcohol intake: never Patient Tobacco Use Status: Never used Tobacco e-Cigarette/Vaping Use: Never Used Advance Directives Date on File: 11/08/22 service: No Current occupational status: disabled Cognitive needs: No Hearing needs: Yes Vision needs: Yes Review of Systems Const All systems reviewed & are unremarkable except as noted in HPI and below Denies chills, Denies fever(s), Denies headache(s), Denies poor appetite and Denies weakness ENT Denies headache(s) Card Denies chest pain, Denies irregular heart rhythm, Denies palpitations and Denies dyspnea Resp Denies cough, Denies excessive phlegm production and Denies dyspnea GI Denies abdominal pain, Denies bloating, Denies change in bowel habits, Denies constipation, Denies heartburn, Denies diarrhea, Denies nausea and Denies vomiting Denies urinary frequency Musc Denies back pain, Denies muscle weakness and Denies numbness Skin/Breast Denies changing lesions and Denies unusual bruising Neuro Denies headache(s), Denies numbness, Denies paresthesias and Denies weakness Psych Denies anxiety and Denies depression Endo Denies palpitations Jaylen/Lymph Denies lymphadenopathy Physical Exam Const General: cooperative and no acute distress Nutritional Appearance: well nourished Orientation/consciousness: patient oriented x3 Limitations: no limitations HEENT Head: Yes normocephalic and Yes atraumatic Ears: hearing grossly normal bilaterally Chest Other: Left breast incision in the periareolar location is clean, dry, and intact. Incision is soft with no hematoma or seroma. Mild tenderness to deep palpation. No new palpable mass, skin change, nipple retraction, nipple discharge, or enlarged lymph nodes. Left axillary incision is clean, dry, and intact as well. Right breast: No skin change, nipple discharge, palpable mass, or enlarged lymph nodes. Mild tenderness near the nipple-areolar complex with no palpable changes. Resp Effort & Inspection: normal respiratory effort, no audible wheezes, no cough and no respiratory distress Cardio Jugular venous distension: no JVD GI Inspection: Yes normal to inspection Skin Other: Warm, dry, no rash Neuro Other: Mobility Assessment: 1. 3 meter assessment time (seconds) 7 2. Gait observations: Normal balance and gait General: patient oriented x3 Extrem General: Yes no clubbing, cyanosis or edema Assessment & Plan Assessment & Plan (1) Carcinoma of left breast in female, estrogen receptor positive: Code(s): C50.912 - Malignant neoplasm of unspecified site of left female breast; Z17.0 - Estrogen receptor positive status [ER+] Category: Medical Qualifiers: Breast location: lower inner quadrant of breast Qualified Code(s): C50.312 - Malignant neoplasm of lower-inner quadrant of left female breast; Z17.0 - Estrogen receptor positive status [ER+] Plan 75-year-old female patient diagnosed with infiltrating carcinoma with papillary and ductal features left breast status post left breast lumpectomy with localizer and sentinel node biopsy on 11/05/2022. Skin margins were positive therefore she returned on 11/28/2022 for wider excision including nipple-areolar complex. She is currently on Arimidex and tolerating this well without any particular side effects. She continues her follow-up with Dr. North. She was evaluated by radiation oncology at [facility] and the decision made to forego radiation therapy. Her most recent mammogram on 11/11/2024 revealed no mammographic evidence of malignancy (BI-RADS 2). Examination today revealed no suspicious findings in either breast. Her next mammogram is scheduled for 11/17/2025. I recommended follow-up in 6 months. Coding Level of Care Code Est Pt Level 3 (63126) Add On Problem Visit Only Diagnoses Carcinoma of lower-inner quadrant of left breast in female, estrogen receptor positive C50.312; Z17.0 Breast location: lower inner quadrant of breast
[2025-09-06 13:57] VITALS: BP 182/84; PULSE 68; BMI 35.5
--- OUTSIDE RECORDS SUMMARY | 2025-09-06 19:59 | XMS_ITS | Clinical Summary ---
Author Organization [facility] Address [address] [place] [address] Phone Care Team Providers Care Clinical Team Manager Name Role Phone Kathia Jenkins MD Primary [...] Most Recently Relevant to Health Maintenance Insurance [facility] MED[facility] [place] [facility] MEDIC[facility] RE[facility] RE[facility] Care Teams Clinical Team Manager Relationship Specialty Start Date End Date Kathia Jenkins MD [facility] [place] [address] PCP - General Internal Medicine 10/15/19 Additional Source Comments The information contained in this document represents components of the legal health record. It is not the complete legal health record.[facility]
--- OUTSIDE RECORDS SUMMARY | 2025-09-06 19:59 | XMS_ITS | Patient Health Record ---
Author Organization [facility] Address [address] [place] [address] Care Team Providers Care Carton Waxing Machine Operator Name Role Phone Cb Williamson Unavailable [phone] Reason For Referral No Information Plan Of Treatment No Information
== END 2025-09-06 14:04 | disposition home or self-care (01) ==
LOC: HO.HGS 13:44
PROVIDERS: PCP Internal Medicine; Visit Provider Surgery
DX: C50.312 Malignant neoplasm of lower-inner quadrant of left female breast (principal); Z17.0 Estrogen receptor positive status [ER+]
CPT/HCPCS: 99213; G2211

== ENCOUNTER → 2025-09-06 13:43 | Outpatient (BNVA) | payer OTHER, SELFPAY | PROVIDERS: PCP Internal Medicine; Visit Provider Surgery | DX: Z08 Encounter for follow-up examination after completed treatment for malignant neoplasm (principal); C50.312 Malignant neoplasm of lower-inner quadrant of left female breast; Z17.0 Estrogen receptor positive status [ER+]; Z98.890 Other specified postprocedural states | CPT/HCPCS: 99212 ==